=== PATIENT | female | born 1950 | race Caucasian/White ===

== ENCOUNTER 2018-02-16 14:19 | Inpatient (IN) ==
[~2018-02-16 14:19] MED LIST: Aminoglycoside Consult 1 EACH MC ONE
[2018-02-16] MEDS ORDERED: methylPREDNISolone 125 MG/2 ML VIAL IVP ONE (14:37)
[2018-02-16] MEDS ORDERED: Ipratropium/Albuterol Neb 3 ML IH ONE (14:37)
[2018-02-16] MEDS ORDERED: Isovue-370 500 ML INFUS..BTL IV ONE (14:39)
[2018-02-16] MEDS ORDERED: 0.9 % Sodium Chloride 500 ML IVC ONE (14:40)
--- NOTE | 2018-02-16 14:42 | Emergency Department Note ---
Disposition Clinical Impression: Hypoxia, Acute respiratory failure with hypoxia Community acquired pneumonia Qualifiers: Laterality: right Lung location: lower lobe of lung Qualified Code(s): J18.1 - Lobar pneumonia, unspecified organism Sepsis Qualifiers: Sepsis type: sepsis due to unspecified organism Qualified Code(s): A41.9 - Sepsis, unspecified organism Disposition: Admitted As Inpatient Condition: Good Referrals: Gregg Cook DO [Primary Care Provider] - Forms: ED Satisfaction Letter SOB HPI - General Chief Complaint: ED Shortness of Breath/Dyspnea Stated Complaint: 'sent from u/c for low o2" Time Seen by Provider: 02/16/18 14:32 Source: patient Mode of arrival: private vehicle Limitations: no limitations Nursing Notes Reviewed: Yes Vital Signs Reviewed: Yes - History of Present Illness 67-year-old female history of lung cancer, 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 Patient reports symptoms for the last 4-5 days with increasing shortness of breath. Reports a nonproductive cough. No fevers, chest pain, vomiting or diarrhea. She has felt nauseous during this time. Denies a prior history of requiring admission for her COPD. States she wants tried BiPAP once and was unable to tolerate due to the sensation of the smothering. Denies any prior history of coronary artery disease, DVT or pulmonary embolism. At the time of arrival patient noted to be hypoxic on 6 L nasal cannula. No other complaints. Pt Subjective Complaint: shortness of breath Onset (ago): day(s) Context: recent illness Consistency/Duration: constant Improves with: nothing Worsens with: nothing Known history of: COPD, other (Lung cancer) Associated symptoms: Reports: cough. Denies: chest pain, fever, sputum production Treatment prior to arrival: oxygen Cough present: No - Related Data Home oxygen amount: 4 liters Home Medications Medication Instructions Recorded Confirmed Atenolol [Tenormin] 50 mg PO BID 10/23/15 02/16/18 Glimepiride [Amaryl] 2 mg PO BID 10/23/15 02/16/18 Losartan Potassium [Cozaar] 50 mg PO BID 10/23/15 02/16/18 hydroCHLOROthiazide 25 mg PO DAILY 10/23/15 02/16/18 [Hydrochlorothiazide] Albuterol Sulfate [Proair 1 puff IH Q6H PRN 04/22/16 02/16/18 Respiclick] Budesonide/Formoterol 160/4.5 2 puff IH BIDR 04/22/16 02/16/18 [Symbicort 160/4.5] Theophylline Anhydrous [Mick-24] 100 mg PO DAILY 10/24/16 02/16/18 metFORMIN [Glucophage] 500 mg PO BID 10/24/16 02/16/18 Tiotropium [Spiriva] 18 mcg IH DAILY 02/16/18 02/16/18 Previous Rx's Medication Instructions Recorded Benzonatate [Tessalon] 200 mg PO TID PRN #30 capsule 02/16/18 cephALEXin [Keflex] 500 mg PO QID #40 capsule 02/16/18 predniSONE [PredniSONE] 60 mg PO DAILY 5 Days tablet 02/16/18 Allergies Allergy/AdvReac Type Severity Reaction Status Date / Time roflumilast [From [facility]] AdvReac Cramping Verified 02/16/18 12:54 of the Muscles All systems ED: reviewed and negative except as stated. Constitutional: Denies: fever, chills Cardiovascular: Denies: chest pain Respiratory: Reports: cough, dyspnea. Denies: hemoptysis, sputum production Gastrointestinal: Reports: nausea. Denies: abdominal pain, vomiting, diarrhea Past Medical History - Past Medical History Attestation: Yes The following information was validated with the patient. Source: patient Medical history: Reports: COPD, diabetes, hypertension, other PALEOLOGIST history: Reports: no PALEOLOGIST history - Social History Smoking Status: Unknown if ever smoked Smokeless Tobacco Status: No Alcohol use: Reports: none Drug use: Reports: none Physical Exam - General Limitations: no limitations General appearance: alert, in distress - Head Head exam: atraumatic, normocephalic - Eye Eye exam: Present: normal appearance - ENT ENT exam: normal exam - Neck Neck exam: Present: normal inspection - Chest Chest inspection: Present: normal inspection, symmetric chest wall rise - Respiratory Respiratory exam: Present: other (Diminished breath sounds bilaterally with end expiratory wheezing.) - Cardiovascular Cardiovascular exam: Present: normal rhythm, tachycardia, normal heart sounds - Abdominal Exam Abdominal exam: Present: soft, Non-Tender. Absent: tenderness - Extremities Exam Extremities exam: Present: normal inspection, full ROM - Expanded Upper Extremity Exam Shoulder exam: Present: normal inspection, full ROM Arm exam: Present: normal inspection, full ROM Elbow exam: Present: normal inspection, full ROM Forearm/Wrist exam: Present: normal inspection, full ROM Hand exam: Present: normal inspection, full ROM - Expanded Lower Extremity Exam Hip/Pelvis exam: Present: normal inspection, full ROM Upper leg exam: Present: normal inspection, full ROM Knee exam: Present: normal inspection, full ROM Lower leg exam: Present: normal inspection, full ROM Ankle exam: Present: normal inspection, full ROM Foot/toe exam: Present: normal inspection, full ROM - Skin Skin exam: Present: warm, dry Course Course Narrative: Patient seen and examined at time of arrival. 88% on 6 L nasal cannula. Placed on oxymask with improvement to 96%. Plan is EKG, chest x-ray as well as labs including troponin. We will give her 3 DuoNeb treatments here, Solu- Medrol as well as check an ABG and CTA chest given her prior malignant history to evaluate for pulmonary embolism. She will require admission for at least COPD exacerbation as well as hypoxia. - Reevaluation(s) Reevaluation #1: Patient was slightly more somnolent. On reassessment she opens her eyes to voice and answers questions appropriately. I discussed with her about possible noninvasive options including BiPAP. Although she was first hesitant she agrees with trying a dose of Ativan and wearing BiPAP. Her CT demonstrates findings suggestive of pneumonia as well as concern for malignancy. No evidence of pulmonary embolism. Given her tachycardia and elevated respiratory rate she meets SIRS criteria is we will continue IV fluid resuscitation, obtain lactate and blood cultures and treat for community-acquired pneumonia. Reevaluation #2: Patient remains comfortable on BiPAP. Settings 09/10 on 50% FiO2. Vital Signs Temperature 98.2 F 02/16/18 14:22 Pulse Rate 132 02/16/18 14:22 Respiratory Rate 26 02/16/18 14:22 Blood Pressure 138/78 02/16/18 14:22 O2 Sat by Pulse Oximetry 90 02/16/18 14:22 Temperature 98.2 F 02/16/18 14:22 Pulse Rate 113 02/16/18 18:11 Respiratory Rate 23 02/16/18 18:11 Blood Pressure 129/71 02/16/18 18:11 O2 Sat by Pulse Oximetry 98 02/16/18 18:11 Oxygen Delivery Oxygen Delivery Simple Mask Shortness of Breath/Dyspnea - MDM Narrative Medical decision making narrative: 67-year-old female with shortness of breath for 5 days. Underlying history of oxygen-dependent COPD. Hypoxic on 6 L nasal cannula here. Improved with oxygen mask that was eventually transitioned to BiPAP. CTA negative for pulmonary embolism however concern for pneumonia as well as malignancy. She is septic secondary to her pneumonia with tachycardia and tachypnea. Hemodynamically stable with the exception of tachycardia. Patient received IV fluids 1.5 L with a normal lactate. Cultures obtained. Rocephin and Zithromax for community-acquired pneumonia. Admitted to the hospitalist service for acute respiratory failure, community acquired pneumonia, sepsis. - Lab Data Lab results reviewed: Yes I reviewed the patient's lab results. Result diagrams: 02/16/18 14:53 02/16/18 14:53 Lab Results 02/16/18 02/16/18 02/16/18 Range/Units 14:53 14:53 14:53 WBC 11.5 H (4.3-11.1) K/mcL RBC 3.64 L (3.82-4.97) M/mcL Hgb 10.6 L (11.5-15.4) g/dL Hct 34.0 L (35.3-44.9) % MCV 93.4 (83.0-100.0) fL MCH 29.1 (28.0-33.3) pg MCHC 31.2 L (31.6-35.5) g/dL RDW 13.8 (11.5-14.5) % Plt Count 226 (140-400) K/mcL MPV 10.1 (9.4-12.4) fL Immature Gran % 0.7 (0-4) % Seg Neutrophils % 83.3 % Lymphocytes % 6.2 % Monocytes % 9.2 % Eosinophils % 0.3 % Basophils % 0.3 % Neutrophils # 9.6 H (1.6-8.9) K/mcL Lymphocytes # 0.7 (0.6-4.6) K/mcL Monocytes # 1.1 (0.0-1.3) K/mcL Eosinophils # 0.0 (0.0-0.6) K/mcL Basophils # 0.0 (0.0-0.2) K/mcL Mixed VBG pH (7.34-7.36) pH Units Mixed VBG pCO2 (44-46) mmHg Mixed VBG pO2 (35-45) mmHg Sodium 133 L (136-145) mEq/L Potassium 4.0 (3.5-5.1) mEq/L Chloride 90 L (98-107) mEq/L Carbon Dioxide 30 H (23-29) mEq/L BUN 27 H (8-23) mg/dL Creatinine 0.98 (0.60-1.20) mg/dL Est GFR ( Amer) > 60 (> 60) Est GFR (Non-Af Amer) 57 L (> 60) BUN/Creatinine Ratio 28 H (6-26) Glucose 327 H (70-105) mg/dL Calculated Osmolality 294 (280-300) Lactic Acid (0.5-2.2) mmol/L Calcium 9.5 (8.6-10.3) mg/dL Troponin I < 0.03 (< 0.04) ng/mL B-Natriuretic Peptide 75 (Less than 100) pg/mL 02/16/18 02/16/18 Range/Units 15:42 16:45 WBC (4.3-11.1) K/mcL RBC (3.82-4.97) M/mcL Hgb (11.5-15.4) g/dL Hct (35.3-44.9) % MCV (83.0-100.0) fL MCH (28.0-33.3) pg MCHC (31.6-35.5) g/dL RDW (11.5-14.5) % Plt Count (140-400) K/mcL MPV (9.4-12.4) fL Immature Gran % (0-4) % Seg Neutrophils % % Lymphocytes % % Monocytes % % Eosinophils % % Basophils % % Neutrophils # (1.6-8.9) K/mcL Lymphocytes # (0.6-4.6) K/mcL Monocytes # (0.0-1.3) K/mcL Eosinophils # (0.0-0.6) K/mcL Basophils # (0.0-0.2) K/mcL Mixed VBG pH 7.37 H (7.34-7.36) pH Units Mixed VBG pCO2 56 H (44-46) mmHg Mixed VBG pO2 47 H (35-45) mmHg Sodium (136-145) mEq/L Potassium (3.5-5.1) mEq/L Chloride (98-107) mEq/L Carbon Dioxide (23-29) mEq/L BUN (8-23) mg/dL Creatinine (0.60-1.20) mg/dL Est GFR ( Amer) (> 60) Est GFR (Non-Af Amer) (> 60) BUN/Creatinine Ratio (6-26) Glucose (70-105) mg/dL Calculated Osmolality (280-300) Lactic Acid 1.4 (0.5-2.2) mmol/L Calcium (8.6-10.3) mg/dL Troponin I (< 0.04) ng/mL B-Natriuretic Peptide (Less than 100) pg/mL - Radiology Data Radiology results reviewed: Yes I reviewed the patient's radiology results. Chest X-Ray 02/16/18 14:37 IMPRESSION: Patchy airspace disease in the lower lobes bilaterally possibly representing pneumonia D/ / Reed Gonsales MD / Reed Gonsales MD Interpreting Provider: Reed Gonsales MD Chest CTA 02/16/18 14:39 IMPRESSION: Evidence of new peripheral consolidation within the right lower lobe, compatible with pneumonia. There is likely a component of bronchitis, with thickening of the bronchial frye. Otherwise stable chest CT with re- demonstration of right apical, left upper lobe, and right middle lobe spiculated masslike opacities, which represents some combination of scarring and/or neoplasm. There has been interval enlargement of mediastinal lymph nodes which is probably reactive. Attention to this on follow-up examinations is necessary. D/ / Moo Mcqueen MD / Moo Mcqueen MD Interpreting Provider: Moo Mcqueen MD - EKG Data EKG attestation: Yes I reviewed and interpreted this EKG. EKG results narrative: EKG demonstrates sinus tachycardia with rate 122. Normal axis. Normal intervals. Normal R-wave progression. No gross ST elevations or depressions. No acute ischemic findings. Ana - Ana Situation: Demographics, MOA Background: Presenting Complaint, Relevant PMH, Meds, & Allergies Assessment: Vital Signs, Course and respsone to treatment, Exam Concerns, Patient/Family Expectation, Pertinant Lab Results Recommendation: Barrier(s) to disposition, Recommendation based on pending studies, treatments, or consults Ana Report Given to: Greg Perez Repor Time: 18:58
--- NOTE | 2018-02-16 15:10 | Emergency Department Note ---
Disposition Clinical Impression: Hypoxia Disposition: Admitted As Inpatient Forms: ED Satisfaction Letter General Adult HPI - General Chief complaint: ED Shortness of Breath/Dyspnea Stated complaint: 'sent from u/c for low o2" Time Seen by Provider: 02/16/18 14:32 Source: patient Mode of arrival: private vehicle Limitations: no limitations - History of Present Illness Pain Scale: 0 - Related Data Home Medications Medication Instructions Recorded Confirmed Atenolol [Tenormin] 50 mg PO BID 10/23/15 02/16/18 Glimepiride [Amaryl] 2 mg PO BID 10/23/15 02/16/18 Losartan Potassium [Cozaar] 50 mg PO BID 10/23/15 02/16/18 hydroCHLOROthiazide 25 mg PO DAILY 10/23/15 02/16/18 [Hydrochlorothiazide] Albuterol Sulfate [Proair 1 puff IH Q6H PRN 04/22/16 02/16/18 Respiclick] Budesonide/Formoterol 160/4.5 2 puff IH BIDR 04/22/16 02/16/18 [Symbicort 160/4.5] Theophylline Anhydrous [Mcik-24] 100 mg PO DAILY 10/24/16 02/16/18 metFORMIN [Glucophage] 500 mg PO BID 10/24/16 02/16/18 Tiotropium [Spiriva] 18 mcg IH DAILY 02/16/18 02/16/18 Previous Rx's Medication Instructions Recorded Benzonatate [Tessalon] 200 mg PO TID PRN #30 capsule 02/16/18 cephALEXin [Keflex] 500 mg PO QID #40 capsule 02/16/18 predniSONE [PredniSONE] 60 mg PO DAILY 5 Days tablet 02/16/18 Allergies Allergy/AdvReac Type Severity Reaction Status Date / Time roflumilast [From [facility]] AdvReac Cramping Verified 02/16/18 12:54 of the Muscles Constitutional: Denies: fever, chills Cardiovascular: Denies: chest pain Respiratory: Reports: cough, dyspnea. Denies: hemoptysis, sputum production Gastrointestinal: Reports: nausea. Denies: abdominal pain, vomiting, diarrhea Past Medical History - Past Medical History Medical history: Reports: COPD, diabetes, hypertension, other MENDING CARRIER history: Reports: no MENDING CARRIER history - Social History Smoking Status: Unknown if ever smoked Smokeless Tobacco Status: No Alcohol use: Reports: none Drug use: Reports: none Physical Exam - General Limitations: no limitations General appearance: alert, in distress Course Vital Signs Temperature 98.2 F 02/16/18 14:22 Pulse Rate 132 02/16/18 14:22 Respiratory Rate 26 02/16/18 14:22 Blood Pressure 138/78 02/16/18 14:22 O2 Sat by Pulse Oximetry 90 02/16/18 14:22 Temperature 98.2 F 02/16/18 14:22 Pulse Rate 123 02/16/18 14:49 Respiratory Rate 30 02/16/18 14:49 Blood Pressure 124/89 02/16/18 14:49 O2 Sat by Pulse Oximetry 99 02/16/18 14:50 Oxygen Delivery Oxygen Delivery Simple Mask Attestation Statement - Attestation Attestation: I examined this patient and my medical decision-making was reviewed with the Resident Physician. I agree with the documented findings, disposition and treatment plan as described except to the extent set forth below. 67 year old mauricio presntes to the eD wtih hypoxia at 88% on 6LNC and has a history ofl emerson cancer, and she is also tachycardiac at this time. WE will strat respraitory resusitation and she states that she cannot tolerate the bipap , crrently on high flow oxygen and at 96%. [place] will have a cardiopulonary workup with CTA chest to rule out PE and will be admitted to [facility].
[2018-02-16 15:30] LABS: Basophils % 0.3 %; Eosinophils % 0.3 %; Hemoglobin 10.6 g/dL (11.5-15.4); Immature Granulocytes % 0.7 % (0-4); Lymphocytes # 0.7 K/mcL (0.6-4.6); Lymphocytes % 6.2 %; Mean Corpuscular HGB Conc 31.2 g/dL (31.6-35.5); Mean Corpuscular Hemoglobin 29.1 pg (28.0-33.3); Mean Corpuscular Volume 93.4 fL (83.0-100.0); Mean Platelet Volume 10.1 fL (9.4-12.4); Monocytes # 1.1 K/mcL (0.0-1.3); Monocytes % 9.2 %; Neutrophils # 9.6 K/mcL (1.6-8.9); Platelet Count 226 K/mcL (140-400); Red Blood Count 3.64 M/mcL (3.82-4.97); Red Cell Distribution Width 13.8 % (11.5-14.5); Segmented Neutrophils % 83.3 %
[2018-02-16 15:31] LABS: Troponin I < 0.03 ng/mL (< 0.04)
[2018-02-16 15:42] LABS: BUN/Creatinine Ratio 28 (6-26); Blood Urea Nitrogen 27 mg/dL (8-23); Calcium 9.5 mg/dL (8.6-10.3); Carbon Dioxide 30 mEq/L (23-29); Chloride 90 mEq/L (98-107); Glucose 327 mg/dL (70-105); Osmolality,Calculated 294 (280-300); Sodium 133 mEq/L (136-145); eGFR For African Americans > 60 (> 60); eGFR For Non-African Americans 57 (> 60)
[2018-02-16 15:50] LABS: Mixed Venous Blood pCO2 56 mmHg (44-46); Mixed Venous Blood pH 7.37 pH Units (7.34-7.36); Mixed Venous Blood pO2 47 mmHg (35-45)
[2018-02-16] MEDS ORDERED: *HR* LORazepam 2 MG/ML VIAL IVP ONE ×2 (16:23→19:41)
[2018-02-16] MEDS ORDERED: Azithromycin 500 MG in D5% in Water 250 ML IVPB ONE (16:32)
[2018-02-16] MEDS ORDERED: cefTRIAXone 1,000 MG in Water for inj. (sterile) 20 ML 10 ML IVP ONE (16:32)
[2018-02-16] MEDS ORDERED: 0.9 % Sodium Chloride 1,000 ML IVC ONE (16:33)
[2018-02-16 22:10] LABS: ABG Base Excess 5 mEq/L (-2 to 3); ABG HCO3 34 mEq/L (21-27); ABG Oxygen Saturation 97 % (95-98); ABG PCO2 76 mmHg (35-45); ABG PH 7.26 pH Units (7.32-7.45); ABG PO2 103 mmHg (85-104); ABG TCO2 36 mEq/L (20-26); Blood Gas Modality NIV
[2018-02-16] MEDS ORDERED: *HR* Dextrose 50 % in Water (Syg) 50 ML SYRINGE IVP PRN (22:12)
[2018-02-16] MEDS ORDERED: Naloxone 0.4 MG/ML INJ IVP PRN (22:12)
[2018-02-16] MEDS ORDERED: Acetaminophen 325 MG TABLET PO PRN (22:12)
[2018-02-16] MEDS ORDERED: Dextrose Gel 15 GM/37.5 ML TUBE PO PRN ×2 (22:12)
[2018-02-16] MEDS ORDERED: D5% in Water 1,000 ML IVC PRN (22:12)
[2018-02-16] MEDS ORDERED: Albuterol 2.5 MG/3 ML NEBULIZER IH PRN (22:22)
--- NOTE | 2018-02-16 22:34 | Internal Med History&Physical ---
Date of Encounter: 02/16/18 Time of Encounter: 21:40 Internal Medicine - H&P: HPI Chief complaint: SOB Admitted From: Emergency Dept Plans for Post Hospital Care: Home History of present illness: Ms. Farr is a 67 year old female who presents to the ER tonight with a three-day history of shortness of breath, coughing, and wheezing. In the ER, she was found to be in respiratory distress and was placed on BiPAP. However, she was given 2 doses of Ativan in the ER for anxiety and intolerance to BiPAP. She was admitted to hospitalist service for further workup and care. Workup in ER included imaging which showed a right lower lobe pneumonia on CT angiogram. Once stabilized and placed on BiPAP, she was moved to the floor for ongoing inpatient care. Upon my assessment of the patient, she is very somnolent and minimally arousable. She does respond to painful stimuli but not to verbal stimuli. She is tolerating BiPAP well and generating good tidal volumes. I suspect she is more somnolent from Ativan rather than her CO2 retention. However, given her history of COPD and lung cancer, I am ordering an arterial blood gas and we will monitor her closely. I discussed with patient's and daughter CODE STATUS. Patient is full code. Therefore, if she would need to intubate for worsening respiratory failure, we will proceed. I am hopeful, however, that we can improve her with BiPAP. According to her daughter and , she has been fighting a chest cold for the last 3 days and has been become progressively short of breath. She has been somewhat somnolent at home as well. At home, she was on 5 L O2 by nasal cannula chronically and then, today, she became more short of breath. They therefore brought her to the ER. She was noted to have O2 sats in the 60s according to the daughter. I do not see any documentation of that, however. Nonetheless, she is suffering from respiratory failure and is in need of ongoing support and oxygenation. Per daughter and , she has had subjective fevers but no documented fevers. She has had poor intake including fluids. She has had decreased urine output and increasing somnolence. She has had no vomiting or diarrhea. She has had no known ill contacts. Past Med Surg Social Fam HX - Past Medical History Attestation: Yes The following information was validated with the patient. Source: old records reviewed, obtained from family Medical history: cancer (lung cancer), COPD, diabetes, hypertension, other Psychiatric history: no psych history - Past Surgical History Surgical History: cholecystectomy - Social History Smoking Status: Former smoker Smokeless Tobacco Status: No Alcohol use: none Drug use: none Current living situation: Home, With Family Activity Level: Independent ambulation Recent Out of Country Travel Within the Last 8 Weeks: No - Family History Father Living Status: Cause of : stroke Mother Living Status: Cause of : kidney failure Internal Medicine - H&P: Meds Atenolol [Tenormin] 50 mg PO BID 10/23/15 [History] Glimepiride [Amaryl] 2 mg PO BID 10/23/15 [History] Losartan Potassium [Cozaar] 50 mg PO BID 10/23/15 [History] hydroCHLOROthiazide [Hydrochlorothiazide] 25 mg PO DAILY 10/23/15 [History] Albuterol Sulfate [Proair Respiclick] 1 puff IH Q6H PRN 04/22/16 [History] Budesonide/Formoterol 160/4.5 [Symbicort 160/4.5] 2 puff IH BIDR 04/22/16 [ History] Theophylline Anhydrous [Mick-24] 100 mg PO DAILY 10/24/16 [History] metFORMIN [Glucophage] 500 mg PO BID 10/24/16 [History] Benzonatate [Tessalon] 200 mg PO TID PRN #30 capsule 02/16/18 [Rx] Tiotropium [Spiriva] 18 mcg IH DAILY 02/16/18 [History] cephALEXin [Keflex] 500 mg PO QID #40 capsule 02/16/18 [Rx] predniSONE [PredniSONE] 60 mg PO DAILY 5 Days tablet 02/16/18 [Rx] 3 Allergy/AdvReac Type Severity Reaction Status Date / Time roflumilast [From [facility]] AdvReac Cramping Verified 02/16/18 12:54 of the Muscles ROS unobtainable: due to mental status Review of systems: per family; unobtainable from patient - Constitutional Constitutional: fatigue, fever(s), weakness, no chills - EENT Ears: no ear pain, no tinnitus Nose, mouth and throat: nasal congestion, no sinus pressure, no sore throat - Cardiovascular Cardiovascular ROS IM: dyspnea, dyspnea on exertion, lightheadedness, no chest pain, no orthopnea, no paroxysmal nocturnal dyspnea, no syncope - Respiratory Respiratory: cough, dyspnea, dyspnea on exertion, wheezing, chest congestion, pain with cough, no hemoptysis - Gastrointestinal Gastrointestinal: no abdominal pain, no diarrhea, no hematemesis, no hematochezia, no melena, no nausea, no vomiting - Genitourinary Genitourinary: no dysuria, no flank pain, no hematuria - Musculoskeletal Musculoskeletal ROS IM: no muscle cramps, no myalgias - Integumentary Integumentary IM: no rash, no jaundice - Neurological Neurological ROS: weakness, no headache(s) - Psychiatric Psychiatric: no anxiety, no depression Additional comments: +somnolence - Allergic/Immunologic Allergic/Immunologic: no GI upset with certain foods - Constitutional Vitals: Temp Pulse Resp BP Pulse Ox 98.3 F 106 17 131/58 95 02/16/18 21:09 02/16/18 21:09 02/16/18 21:09 02/16/18 21:09 02/16/18 21:09 Exam: somnolent; arousable only to painful stimuli; protecting airway on BiPap - Head Head exam: Present: normal inspection - Eye Eye exam: Present: PERRL. Absent: scleral icterus - ENT ENT exam: Present: mucous membranes dry, normal external ear exam - Neck Neck exam general surgery: Present: full ROM, supple. Absent: tenderness, nuchal rigidity, thyromegaly - Respiratory Respiratory exam: Present: decreased breath sounds, prolonged expiratory phase, rhonchi, wheezes. Absent: chest wall tenderness - Cardiovascular Cardiovascular exam: Present: distant heart sounds, RRR, +S1, +S2. Absent: diastolic murmur, systolic murmur - GI/Abdominal GI/Abdominal exam: Present: soft. Absent: guarding, hepatomegaly, mass, rebound , splenomegaly, tenderness - Extremities Exam Extremities exam: Present: full ROM, normal capillary refill, warm, radial pulses palpable and symmetrical. Absent: calf tenderness, pedal edema, tenderness - Back Exam Back exam: Absent: CVA tenderness (L), CVA tenderness (R) - Neurological Exam Additional comments: depressed mental status; responds appropriately to painful stimuli - Skin Skin exam: Present: dry, warm. Absent: rash Internal Med - H&P Results - Labs CBC & Chem 7: 02/16/18 14:53 02/16/18 14:53 - ABG Interpretation Interpretation: ABG interpreted by me ABG results: 02/16/18 22:05 ABG pH 7.26 L ABG pCO2 76 H* ABG pO2 103 ABG HCO3 34 H ABG Total CO2 36 H ABG O2 Saturation 97 ABG Base Excess 5 H Interpretation: respiratory acidosis - Diagnostic Studies Chest x-ray Status: image reviewed by me (RLL infiltrate; possibly left as well) - Assessment and plan (1) Acute respiratory failure with hypoxia Current Visit: Yes Status: Acute Assessment and plan: 1. Continue BiPAP, IV steroids, scheduled and when necessary aerosols, and oxygen. 2. Arterial blood gas performed now reveals respiratory acidosis. She is tolerating BiPAP well and I will repeat a blood gas in 2 hours and follow closely. 3. If respiratory status declines and/or patient becoming more somnolent, we will intervene with intubation if necessary. I discussed this at length with patient's daughter and and they are in full agreement with the plan. (2) Sepsis Current Visit: Yes Status: Acute Assessment and plan: 1. Will continue IVF, antibiotics, and trend Lactate. 2. BP stable presently. 3. Pneumonia is likely source. Qualifiers: Sepsis type: sepsis due to unspecified organism Qualified Code(s): A41.9 - Sepsis, unspecified organism (3) Lung cancer Current Visit: Yes Status: Chronic Assessment and plan: 1. Patient follows with oncology. 2. Per family, cancer is stable and HEM/ONC is monitoring her clinically. She is not undergoing chemotherapy presently. Qualifiers: Laterality: unspecified laterality Lung location: unspecified part of lung Qualified Code(s): C34.90 - Malignant neoplasm of unspecified part of unspecified bronchus or lung (4) Community acquired pneumonia Current Visit: Yes Status: Acute Assessment and plan: 1. Blood cultures drawn in ER. 2. Antibiotics and support as above. Qualifiers: Laterality: right Lung location: lower lobe of lung Qualified Code(s): J18.1 - Lobar pneumonia, unspecified organism (5) Type 2 diabetes mellitus Current Visit: Yes Status: Chronic Assessment and plan: 1. Hold oral meds. 2. Will place on SSI and monitor adjust dosing as necessary. 3. She may need basal insulin due to steroid use. Qualifiers: Diabetes mellitus ferry terminal agent insulin use: without ferry terminal agent use Diabetes mellitus complication status: without complication Qualified Code(s): E11.9 - Type 2 diabetes mellitus without complications (6) DVT prophylaxis Current Visit: Yes Status: Acute Assessment and plan: 1. Heparin SQ.
[2018-02-16 22:55] LABS: INR 1.2; Prothrombin Time 12.8 Seconds (9.4-12.1)
[2018-02-16 22:57] LABS: Activated Partial Thrombo Time 25.7 Seconds (26.0-36.0)
[2018-02-16] MEDS ORDERED: Vancomycin (wt based) 1,000 MG VIAL IVPB SCH (23:00)
[2018-02-16 23:13] LABS: Estimated Average Glucose 269 mg/dl
[2018-02-17] MEDS: Ipratropium/Albuterol Neb 3 ML IH SCH ×7 (00:31→23:31)
[2018-02-17] MEDS: 0.9 % Sodium Chloride w KCl 20 MEQ/1,000 ML MLS IVC SCH ×2 (00:38→09:00)
[2018-02-17] MEDS: Insulin LISPRO 300 UNITS/3 ML VIAL SQ SCH ×4 (00:38→21:11)
[2018-02-17] MEDS: *HR* Heparin 5,000 UNIT/ML VIAL SQ SCH ×2 (00:39→09:44)
[2018-02-17 00:47] LABS: ABG Base Excess 5 mEq/L (-2 to 3); ABG HCO3 34 mEq/L (21-27); ABG Oxygen Saturation 98 % (95-98); ABG PCO2 76 mmHg (35-45); ABG PH 7.26 pH Units (7.32-7.45); ABG PO2 130 mmHg (85-104); ABG TCO2 36 mEq/L (20-26); Blood Gas Modality NIV
[2018-02-17 05:00] LABS: ABG Base Excess 7 mEq/L (-2 to 3); ABG HCO3 34 mEq/L (21-27); ABG Oxygen Saturation 94 % (95-98); ABG PCO2 66 mmHg (35-45); ABG PH 7.32 pH Units (7.32-7.45); ABG PO2 78 mmHg (85-104); ABG TCO2 36 mEq/L (20-26); Blood Gas Modality NIV; Blood Gas PEEP 6 cm H2O; Blood Gas Respiration Rate 18; Blood Gas VT 500 cc
[2018-02-17 05:20] LABS: Basophils % 0.1 %; Hematocrit 28.2 % (35.3-44.9); Hemoglobin 8.8 g/dL (11.5-15.4); Immature Granulocytes % 1.2 % (0-4); Lymphocytes # 0.6 K/mcL (0.6-4.6); Lymphocytes % 8.7 %; Mean Corpuscular HGB Conc 31.2 g/dL (31.6-35.5); Mean Corpuscular Volume 93.1 fL (83.0-100.0); Mean Platelet Volume 9.9 fL (9.4-12.4); Monocytes # 0.3 K/mcL (0.0-1.3); Monocytes % 4.7 %; Neutrophils # 5.9 K/mcL (1.6-8.9); Platelet Count 201 K/mcL (140-400); Red Blood Count 3.03 M/mcL (3.82-4.97); Red Cell Distribution Width 13.8 % (11.5-14.5); Segmented Neutrophils % 85.3 %
[2018-02-17 05:42] LABS: Alanine Aminotransferase 22 Units/L (7-52); Albumin 3.3 g/dL (3.5-5.7); Albumin/Globulin Ratio 0.9 (1.1-2.2); Alkaline Phosphatase 82 Units/L (34-104); Aspartate Amino Transferase 13 Units/L (13-39); BUN/Creatinine Ratio 36 (6-26); Bilirubin,Total 0.3 mg/dL (0.3-1.0); Blood Urea Nitrogen 30 mg/dL (8-23); Calcium 8.5 mg/dL (8.6-10.3); Carbon Dioxide 30 mEq/L (23-29); Chloride 99 mEq/L (98-107); Globulin 3.5 g/dL (2.4-3.5); Glucose 293 mg/dL (70-105); Magnesium 1.9 mg/dL (1.6-2.6); Osmolality,Calculated 301 (280-300); Potassium 4.7 mEq/L (3.5-5.1); Sodium 137 mEq/L (136-145); Total Protein 6.8 g/dL (6.4-8.9); eGFR For African Americans > 60 (> 60); eGFR For Non-African Americans > 60 (> 60)
[2018-02-17] MEDS: methylPREDNISolone 125 MG/2 ML VIAL IVP SCH ×2 (06:09→17:21)
--- NOTE | 2018-02-17 07:06 | Electrocardiograph Report ---
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
[2018-02-17] MEDS: Budesonide/Formoterol 160/4.5 MDI IH SCH ×2 (07:53→20:11)
[2018-02-17] MEDS ORDERED: Levofloxacin 750 MG/150 ML 750 MG/150 ML BAG IVPB SCH (09:00)
--- NOTE | 2018-02-17 09:24 | Internal Med Progress Note ---
<Uriel Watts - Last Filed: 02/17/18 14:17> Date of Encounter: 02/17/18 Time of Encounter: 09:23 - Assessment and plan (1) Acute respiratory failure with hypoxia Current Visit: Yes Status: Acute Assessment and plan: 3 day history of worsening dyspnea, arrived to ED in acute respiratory failure and placed on Bipap ABG this morning improved from yesterday with pH 7.32, pCO2 66, pO2 78 Lactate 1.4, 1.1, 0.7 96% on bipap -Continue with bipap -Continue with steroids solumerol 60mg q12h -Continue with duonebs q4h -Continue with supplemental oxygen as needed. (2) Community acquired pneumonia Current Visit: Yes Status: Acute Assessment and plan: Right lower lobe pneumonia CXR revealed patchy airspace disease of lower lobes bilaterally CTA revealed evidence of consolidation within the right lower lobe. Also has stable chest CT with re-demonstration of right apical, left upper lob, and right middle lobe spiculated masslike opacities. Interval enlargement of mediastinal lymph nodes. -Continue with Levaquin d1. discontinue Vancomycin d1. Received one dose of Rocephin in the ED. Qualifiers: Laterality: right Lung location: lower lobe of lung Qualified Code(s): J18.1 - Lobar pneumonia, unspecified organism (3) Sepsis Current Visit: Yes Status: Resolved Assessment and plan: Resolved. Arrived with tachypnea and tachycardia and found to have RLL pneumonia. Initially started on broad spectrum including Vancomycin. Sepsis due to RLL pneumonia, classified as CAP, will discontinue vancomyin d1 and continue with levaquin. Bp stable Continue per plan in assessment above. Qualifiers: Sepsis type: sepsis due to unspecified organism Qualified Code(s): A41.9 - Sepsis, unspecified organism (4) Lung cancer Current Visit: Yes Status: Chronic Assessment and plan: Known history of lung cancer Re-demonstration on CTA. Followup with Oncology as scheduled as outpatient. Qualifiers: Laterality: unspecified laterality Lung location: unspecified part of lung Qualified Code(s): C34.90 - Malignant neoplasm of unspecified part of unspecified bronchus or lung (5) Type 2 diabetes mellitus Current Visit: Yes Status: Chronic Assessment and plan: Known history of type II diabetes. Continue with ADA diet and sliding scale insulin. Continue regular glucose monitoring. Qualifiers: Diabetes mellitus nursing home insulin use: without nursing home use Diabetes mellitus complication status: without complication Qualified Code(s): E11.9 - Type 2 diabetes mellitus without complications (6) DVT prophylaxis Current Visit: Yes Status: Acute Assessment and plan: Currently on subcutaneous heparin, will switch to daily lovenox as history of cancer. (7) Hypertension Current Visit: Yes Status: Acute Assessment and plan: Bp controlled, renal function good. Will resume home meds for chronic disease management. Qualifiers: Hypertension type: essential hypertension Qualified Code(s): I10 - Essential (primary) hypertension - Time Spent With Patient Total time spent is greater than 50% in coordination of care (as documented) at patient's floor/unit and/or counseling patient: - Subjective Interval history: Patient reports doing better and family members report patient is a lot more alert than arrival. Does report some shortness of breath still, but much improved. Patient reports some right mid back pain that is achy and worse with deep inspiration. Patient does have a right lower lobes pneumonia and exam of back and CVA on right are negative for tenderness to palpation. Denies fevers, chills, sweats, nausea, vomiting, chest pain, abdominal pain, changes in bowels or bladder, or weakness. - Constitutional Vitals: Temp Pulse Resp BP Pulse Ox 97.6 F 71 20 144/82 96 02/17/18 03:16 02/17/18 07:00 02/17/18 07:54 02/17/18 07:54 02/17/18 07:54 General appearance: Present: A&O X 3, no acute distress, obese, answers questions appropriately Exam: on Bipap - Head Head exam: Present: atraumatic, normal inspection, normocephalic - Eye Eye exam: Present: EOMI, normal appearance - ENT ENT exam: Present: mucous membranes moist, normal exam, normal oropharynx - Neck Neck exam general surgery: Present: full ROM, normal inspection, supple, trachea midline. Absent: lymphadenopathy - Respiratory Respiratory exam: Present: CTAB. Absent: rales, respiratory distress, rhonchi, wheezes - Cardiovascular Cardiovascular exam: Present: RRR, +S1, +S2 - GI/Abdominal GI/Abdominal exam: Present: normal bowel sounds, soft. Absent: tenderness - Extremities Exam Extremities exam: Present: full ROM, normal inspection, warm, radial pulses palpable and symmetrical. Absent: pedal edema, tenderness - Back Exam Additional comments: mid and lower back inspected and normal, no spinal tenderness, no CVA tenderness , no rashes, no tenderess with palpation. - Neurological Exam Neurological exam: Present: alert, oriented X3, strengths equal and symetr throughout - Skin Skin exam: Present: dry, intact, normal color, warm Internal Medicine: Result - Labs CBC & Chem 7: 02/17/18 05:02 02/17/18 05:02 Labs: Short CBC 02/17/18 Range/Units 05:02 WBC 6.9 (4.3-11.1) K/mcL Hgb 8.8 L D (11.5-15.4) g/dL Hct 28.2 L (35.3-44.9) % Plt Count 201 (140-400) K/mcL Neutrophils # 5.9 (1.6-8.9) K/mcL BMP 02/17/18 05:02 Sodium 137 Potassium 4.7 Chloride 99 Carbon Dioxide 30 H BUN 30 H Creatinine 0.83 Glucose 293 H Calcium 8.5 L Cardiac Enzymes 02/16/18 02/17/18 Range/Units 22:36 05:02 Troponin I < 0.03 < 0.03 (< 0.04) ng/mL Liver Function 02/17/18 Range/Units 05:02 Total Bilirubin 0.3 (0.3-1.0) mg/dL AST 13 (13-39) Units/L ALT 22 (7-52) Units/L Alkaline Phosphatase 82 (34-104) Units/L Albumin 3.3 L (3.5-5.7) g/dL - ABG Interpretation ABG results: ABG ABG pH 7.32 pH Units (7.32-7.45) 02/17/18 04:56 ABG pCO2 66 mmHg (35-45) H 02/17/18 04:56 ABG pO2 78 mmHg (85-104) L D 02/17/18 04:56 ABG O2 Saturation 94 % (95-98) L 02/17/18 04:56 PT/INR, D-dimer PT 12.8 Seconds (9.4-12.1) H 02/16/18 22:36 Consult Discharge Plan - Plan Referrals: Hosea Martin [Partnered Physician] - 02/25/18 10:00 am <Gregg Bernard - Last Filed: 02/17/18 18:46> Date of Encounter: 02/17/18 - Assessment and plan (1) Acute on chronic respiratory failure with hypoxia and hypercapnia Current Visit: Yes Status: Acute (2) Acute respiratory failure with hypoxia Current Visit: Yes Status: Acute (3) Community acquired pneumonia Current Visit: Yes Status: Acute Qualifiers: Laterality: right Lung location: lower lobe of lung Qualified Code(s): J18.1 - Lobar pneumonia, unspecified organism (4) Sepsis Current Visit: Yes Status: Resolved Qualifiers: Sepsis type: sepsis due to unspecified organism Qualified Code(s): A41.9 - Sepsis, unspecified organism (5) Lung cancer Current Visit: Yes Status: Chronic Qualifiers: Laterality: unspecified laterality Lung location: unspecified part of lung Qualified Code(s): C34.90 - Malignant neoplasm of unspecified part of unspecified bronchus or lung (6) Type 2 diabetes mellitus Current Visit: Yes Status: Chronic Qualifiers: 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 use: without nursing home use Diabetes mellitus complication status: without complication Qualified Code(s): E11.9 - Type 2 diabetes mellitus without complications (7) Hypertension Current Visit: Yes Status: Acute Qualifiers: Hypertension type: essential hypertension Qualified Code(s): I10 - Essential (primary) hypertension (8) DVT prophylaxis Current Visit: Yes Status: Acute - Time Spent With Patient Total time spent is greater than 50% in coordination of care (as documented) at patient's floor/unit and/or counseling patient: - Constitutional Vitals: Temp Pulse Resp BP Pulse Ox 97.7 F 111 17 136/74 97 02/17/18 17:22 02/17/18 17:22 02/17/18 17:22 02/17/18 17:22 02/17/18 17:22 Internal Medicine: Result - Labs CBC & Chem 7: 02/17/18 05:02 02/17/18 05:02 Labs: Short CBC 02/17/18 Range/Units 05:02 WBC 6.9 (4.3-11.1) K/mcL Hgb 8.8 L D (11.5-15.4) g/dL Hct 28.2 L (35.3-44.9) % Plt Count 201 (140-400) K/mcL Neutrophils # 5.9 (1.6-8.9) K/mcL BMP 02/17/18 05:02 Sodium 137 Potassium 4.7 Chloride 99 Carbon Dioxide 30 H BUN 30 H Creatinine 0.83 Glucose 293 H Calcium 8.5 L Cardiac Enzymes 02/16/18 02/17/18 02/17/18 Range/Units 22:36 05:02 10:39 Troponin I < 0.03 < 0.03 < 0.03 (< 0.04) ng/mL Liver Function 02/17/18 Range/Units 05:02 Total Bilirubin 0.3 (0.3-1.0) mg/dL AST 13 (13-39) Units/L ALT 22 (7-52) Units/L Alkaline Phosphatase 82 (34-104) Units/L Albumin 3.3 L (3.5-5.7) g/dL - ABG Interpretation ABG results: ABG ABG pH 7.32 pH Units (7.32-7.45) 02/17/18 04:56 ABG pCO2 66 mmHg (35-45) H 02/17/18 04:56 ABG pO2 78 mmHg (85-104) L D 02/17/18 04:56 ABG O2 Saturation 94 % (95-98) L 02/17/18 04:56 PT/INR, D-dimer PT 12.8 Seconds (9.4-12.1) H 02/16/18 22:36 - Attending Attestation I examined this patient and my medical decision-making was reviewed with the Resident Physician on 02/17/18. I agree with the documented findings, disposition and treatment plan as described except to the extent set forth below. Ms Farr is currently admitted for acute resp failure. She remains moderate to high risk due to potential for worsening clinical status. Ms Farr is doing a little better but is very dyspneic with movement. No pain. No fever or chills. Has been on and off bipap today. Exam Alert. Moderate resp distress at rest Mucus membranes dry Heart tachy Lungs with wheeze and rales bilaterally Abd soft I/P 1. Resp failure 2. COPD Further diagnoses and plan as above.
[2018-02-17] MEDS: *HR* LORazepam 0.5 MG TABLET PO PRN (21:22)
[2018-02-18] MEDS: Ipratropium/Albuterol Neb 3 ML IH SCH ×6 (04:02→23:07)
[2018-02-18] MEDS: methylPREDNISolone 125 MG/2 ML VIAL IVP SCH (05:35)
[2018-02-18] MEDS: *HR* Enoxaparin 40 MG/0.4 ML SYRINGE SQ SCH (05:35)
[2018-02-18] MEDS: Insulin LISPRO 300 UNITS/3 ML VIAL SQ SCH ×4 (08:01→21:21)
[2018-02-18] MEDS: hydroCHLOROthiazide 25 MG TABLET PO SCH (08:02)
[2018-02-18] MEDS: Levofloxacin 750 MG/150 ML 750 MG/150 ML BAG IVPB SCH (08:02)
[2018-02-18] MEDS: Budesonide/Formoterol 160/4.5 MDI IH SCH ×2 (08:05→19:47)
[2018-02-18 09:12] LABS: Hematocrit 29.9 % (35.3-44.9); Mean Corpuscular HGB Conc 30.1 g/dL (31.6-35.5); Mean Corpuscular Hemoglobin 28.5 pg (28.0-33.3); Mean Corpuscular Volume 94.6 fL (83.0-100.0); Mean Platelet Volume 10.1 fL (9.4-12.4); Monocytes # 0.2 K/mcL (0.0-1.3); Nucleated Red Blood Cells 0.2 /100 WBC (0); Platelet Count 273 K/mcL (140-400); Red Blood Count 3.16 M/mcL (3.82-4.97); Red Cell Distribution Width 13.9 % (11.5-14.5)
[2018-02-18 09:45] LABS: Lymphocytes # 0.4 K/mcL (0.6-4.6); Neutrophils # 8.5 K/mcL (1.6-8.9); Platelet Estimate Normal (Normal); Polychromasia 1+ (Not Present)
--- NOTE | 2018-02-18 10:47 | Internal Med Progress Note ---
<Rishabh Stallings - Last Filed: 02/18/18 13:40> Date of Encounter: 02/18/18 Time of Encounter: 08:35 - Assessment and plan (1) Acute respiratory failure with hypoxia Current Visit: Yes Status: Acute Assessment and plan: Secondary to pneumonia with history of lung cancer 3 day history of worsening dyspnea, arrived to ED in acute respiratory failure and placed on Bipap ABG improved yesterday with pH 7.32, pCO2 66, pO2 78 Lactate 1.4, 1.1, 0.7 Patient maintaining adequate oxygen saturation Continue Bipap as needed Will decrease solumerol to 40mg q12h Continue with duonebs q4h Continue with supplemental oxygen (2) Community acquired pneumonia Current Visit: Yes Status: Acute Assessment and plan: Right lower lobe pneumonia CXR revealed patchy airspace disease of lower lobes bilaterally CTA revealed evidence of consolidation within the right lower lobe. Previous spiculated masses in right apical, left upper, and right middle remained stable. Interval enlargement of mediastinal lymph nodes that are likely reactive Continue with Levaquin started 02/16/18 Day 2 Discontinue Vancomycin Received one dose of Rocephin in the ED Support breathing as above Qualifiers: Laterality: right Lung location: lower lobe of lung Qualified Code(s): J18.1 - Lobar pneumonia, unspecified organism (3) Sepsis Current Visit: Yes Status: Resolved Assessment and plan: Resolved. Arrived with tachypnea and tachycardia and found to have RLL pneumonia. Initially started on broad spectrum including Vancomycin. Sepsis due to RLL pneumonia, classified as CAP, will discontinue vancomyin and continue with levaquin. Bp stable Continue per plan in assessment above Qualifiers: Sepsis type: sepsis due to unspecified organism Qualified Code(s): A41.9 - Sepsis, unspecified organism (4) Lung cancer Current Visit: Yes Status: Chronic Assessment and plan: Known history of lung cancer Re-demonstration on CTA, remain stable Followup with Oncology as scheduled as outpatient. 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 Will resume home meds for chronic disease management. Qualifiers: Hypertension type: essential hypertension Qualified Code(s): I10 - Essential (primary) hypertension (7) DVT prophylaxis Current Visit: Yes Status: Acute Assessment and plan: Currently on subcutaneous heparin, will switch to daily lovenox as history of cancer. (8) Acute on chronic respiratory failure with hypoxia and hypercapnia Current Visit: Yes Status: Acute Assessment and plan: plan as above - Time Spent With Patient Total time spent is greater than 50% in coordination of care (as documented) at patient's floor/unit and/or counseling patient: - Subjective Interval history: Patient is resting comfortably. She states that her breathing is improved when she is lying still, but is still having significant dyspnea when she is up and moving at all. She reports only needing the Bipap at night, not all of the time anymore. She has not been coughing at all. She denies having any fever/chills, chest pain, or nausea/vomiting. - Constitutional Vitals: Temp Pulse Resp BP Pulse Ox 98.1 F 70 18 126/66 100 02/17/18 19:36 02/18/18 05:45 02/18/18 08:05 02/18/18 05:45 02/18/18 08:05 General appearance: Present: A&O X 3, no acute distress, obese, answers questions appropriately Exam: Head exam: atraumatic, normal inspection, normocephalic Eye exam: normal appearance, no scleral icterus, no conjunctival injection ENT exam: mucous membranes moist Neck exam general surgery: full ROM, normal inspection, supple, trachea midline Respiratory exam: CTAB, no rales, respiratory distress, rhonchi, wheezes Cardiovascular exam: RRR, +S1, +S2, no murmurs/rubs/gallops GI/Abdominal exam: normal bowel sounds, soft, non tenderness Extremities exam: full ROM, normal inspection, warm, radial pulses palpable and symmetrical, no pedal edema Neurological exam: alert, oriented X3, strengths equal and symetr throughout Skin exam: dry, intact, normal color, warm Internal Medicine: Result - Labs CBC & Chem 7: 02/18/18 08:38 02/17/18 05:02 Labs: Short CBC 02/18/18 Range/Units 08:38 WBC 9.0 (4.3-11.1) K/mcL Hgb 9.0 L (11.5-15.4) g/dL Hct 29.9 L (35.3-44.9) % Plt Count 273 (140-400) K/mcL Neutrophils # 8.5 (1.6-8.9) K/mcL Cardiac Enzymes 02/17/18 Range/Units 10:39 Troponin I < 0.03 (< 0.04) ng/mL - ABG Interpretation ABG results: ABG ABG pH 7.32 pH Units (7.32-7.45) 02/17/18 04:56 ABG pCO2 66 mmHg (35-45) H 02/17/18 04:56 ABG pO2 78 mmHg (85-104) L D 02/17/18 04:56 ABG O2 Saturation 94 % (95-98) L 02/17/18 04:56 PT/INR, D-dimer PT 12.8 Seconds (9.4-12.1) H 02/16/18 22:36 Consult Discharge Plan - Plan Referrals: Hosea Martin [Partnered Physician] - 02/25/18 10:00 am <Gregg Bernard - Last Filed: 02/18/18 18:05> Date of Encounter: 02/18/18 - Assessment and plan (1) Acute on chronic respiratory failure with hypoxia and hypercapnia Current Visit: Yes Status: Acute (2) Acute respiratory failure with hypoxia Current Visit: Yes Status: Acute (3) Community acquired pneumonia Current Visit: Yes Status: Acute Qualifiers: Laterality: right Lung location: lower lobe of lung Qualified Code(s): J18.1 - Lobar pneumonia, unspecified organism (4) Sepsis Current Visit: Yes Status: Resolved Qualifiers: Sepsis type: sepsis due to unspecified organism Qualified Code(s): A41.9 - Sepsis, unspecified organism (5) DVT prophylaxis Current Visit: Yes Status: Acute (6) Lung cancer Current Visit: Yes Status: Chronic Qualifiers: Laterality: unspecified laterality Lung location: unspecified part of lung Qualified Code(s): C34.90 - Malignant neoplasm of unspecified part of unspecified bronchus or lung (7) Type 2 diabetes mellitus Current Visit: Yes Status: Chronic Qualifiers: Diabetes mellitus alf insulin use: without 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 Diabetes mellitus complication status: without complication Qualified Code(s): E11.9 - Type 2 diabetes mellitus without complications (8) Hypertension Current Visit: Yes Status: Acute Qualifiers: Hypertension type: essential hypertension Qualified Code(s): I10 - Essential (primary) hypertension - Time Spent With Patient Total time spent is greater than 50% in coordination of care (as documented) at patient's floor/unit and/or counseling patient: - Constitutional Vitals: Temp Pulse Resp BP Pulse Ox 98.3 F 77 18 116/59 97 02/18/18 15:00 02/18/18 15:00 02/18/18 16:15 02/18/18 15:00 02/18/18 16:15 Internal Medicine: Result - Labs CBC & Chem 7: 02/18/18 08:38 02/17/18 05:02 Labs: Short CBC 02/18/18 Range/Units 08:38 WBC 9.0 (4.3-11.1) K/mcL Hgb 9.0 L (11.5-15.4) g/dL Hct 29.9 L (35.3-44.9) % Plt Count 273 (140-400) K/mcL Neutrophils # 8.5 (1.6-8.9) K/mcL - ABG Interpretation ABG results: ABG ABG pH 7.32 pH Units (7.32-7.45) 02/17/18 04:56 ABG pCO2 66 mmHg (35-45) H 02/17/18 04:56 ABG pO2 78 mmHg (85-104) L D 02/17/18 04:56 ABG O2 Saturation 94 % (95-98) L 02/17/18 04:56 PT/INR, D-dimer PT 12.8 Seconds (9.4-12.1) H 02/16/18 22:36 - Attending Attestation I examined this patient and my medical decision-making was reviewed with the Resident Physician on 02/18/18. I agree with the documented findings, disposition and treatment plan as described except to the extent set forth below. Ms Farr is currently admitted for respiratory failure and COPD. She remains moderate to high risk due to potential for worsening clinical and respiratory status. Ms Farr is beginning to do a little better. No fever or chills. Still with dyspnea and needing bipap at times. No GI issues. Exam Alert Mod distress Mucus membranes dry Heart distant Wheeze present Abd soft I/P 1. Resp failure 2. COPD Further diagnoses and plan as above.
[2018-02-18] MEDS: MethylPREDNISolone 40 MG/ML VIAL IVP SCH (16:08)
[2018-02-18] MEDS: *HR* LORazepam 0.5 MG TABLET PO PRN (21:32)
[2018-02-19] MEDS: Ipratropium/Albuterol Neb 3 ML IH SCH ×6 (03:22→23:39)
[2018-02-19 05:28] LABS: Hematocrit 31.1 % (35.3-44.9); Hemoglobin 9.1 g/dL (11.5-15.4); Mean Corpuscular HGB Conc 29.3 g/dL (31.6-35.5); Mean Corpuscular Volume 95.7 fL (83.0-100.0); Mean Platelet Volume 9.8 fL (9.4-12.4); Nucleated Red Blood Cells 0.4 /100 WBC (0); Platelet Count 270 K/mcL (140-400); Red Blood Count 3.25 M/mcL (3.82-4.97); Red Cell Distribution Width 13.9 % (11.5-14.5)
[2018-02-19 05:37] LABS: BUN/Creatinine Ratio 41 (6-26); Blood Urea Nitrogen 41 mg/dL (8-23); Carbon Dioxide 37 mEq/L (23-29); Chloride 103 mEq/L (98-107); Glucose 253 mg/dL (70-105); Magnesium 2.2 mg/dL (1.6-2.6); Osmolality,Calculated 311 (280-300); Phosphorous 2.8 mg/dL (2.7-4.5); Potassium 4.6 mEq/L (3.5-5.1); Sodium 141 mEq/L (136-145); eGFR For African Americans > 60 (> 60); eGFR For Non-African Americans 55 (> 60)
[2018-02-19] MEDS: MethylPREDNISolone 40 MG/ML VIAL IVP SCH ×2 (05:48→16:49)
[2018-02-19] MEDS: *HR* Enoxaparin 40 MG/0.4 ML SYRINGE SQ SCH (05:50)
[2018-02-19 05:54] LABS: Hypochromasia Present (Not Present); Lymphocytes # 0.7 K/mcL (0.6-4.6); Monocytes # 1.3 K/mcL (0.0-1.3); Neutrophils # 6.8 K/mcL (1.6-8.9); Platelet Estimate Normal (Normal)
[2018-02-19] MEDS: Levofloxacin 750 MG/150 ML 750 MG/150 ML BAG IVPB SCH (07:47)
[2018-02-19] MEDS: hydroCHLOROthiazide 25 MG TABLET PO SCH (07:47)
[2018-02-19] MEDS: Insulin LISPRO 300 UNITS/3 ML VIAL SQ SCH ×4 (07:52→21:34)
[2018-02-19] MEDS: Budesonide/Formoterol 160/4.5 MDI IH SCH ×2 (07:58→19:34)
[2018-02-19] MEDS: Insulin DETEMIR 100 UNIT/ML X5UNITS SQ SCH ×2 (09:05→21:37)
--- NOTE | 2018-02-19 10:17 | Internal Med Progress Note ---
<Rishabh Stallings - Last Filed: 02/19/18 11:01> Date of Encounter: 02/19/18 Time of Encounter: 09:15 - Assessment and plan (1) Community acquired pneumonia Current Visit: Yes Status: Acute Assessment and plan: Right lower lobe pneumonia CXR revealed patchy airspace disease of lower lobes bilaterally CTA revealed evidence of consolidation within the right lower lobe. Previous spiculated masses in right apical, left upper, and right middle remained stable. Interval enlargement of mediastinal lymph nodes that are likely reactive Continue with Levaquin started 02/16/18 Day 3 Discontinue Vancomycin Received one dose of Rocephin in the ED Support breathing as above Qualifiers: Laterality: right Lung location: lower lobe of lung Qualified Code(s): J18.1 - Lobar pneumonia, unspecified organism (2) Sepsis Current Visit: Yes Status: Resolved Assessment and plan: Resolved Arrived with tachypnea and tachycardia and found to have RLL pneumonia Initially started on broad spectrum including Vancomycin Sepsis due to RLL pneumonia, classified as CAP, will discontinue vancomyin and continue with levaquin Bp stable Continue per plan in assessment above Qualifiers: Sepsis type: sepsis due to unspecified organism Qualified Code(s): A41.9 - Sepsis, unspecified organism (3) Lung cancer Current Visit: Yes Status: Chronic Assessment and plan: Known history of lung cancer who had previously received treatment Re-demonstration on CTA, remain stable Followup with Oncology as scheduled as outpatient. 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 insulin use: without halfway use Diabetes mellitus complication status: without complication Qualified Code(s): E11.9 - Type 2 diabetes mellitus without complications (5) Hypertension Current Visit: Yes Status: Acute Assessment and plan: Bp controlled, renal function good Will resume home meds for chronic disease management Qualifiers: Hypertension type: essential hypertension Qualified Code(s): I10 - Essential (primary) hypertension (6) DVT prophylaxis Current Visit: Yes Status: Acute Assessment and plan: Currently on subcutaneous heparin, will switch to daily lovenox as history of cancer (7) Acute on chronic respiratory failure with hypoxia and hypercapnia Current Visit: Yes Status: Acute Assessment and plan: Secondary to pneumonia with history of lung cancer 3 day history of worsening dyspnea, arrived to ED in acute respiratory failure and placed on Bipap ABG improved with pH 7.32, pCO2 66, pO2 78 Lactate 1.4, 1.1, 0.7 Patient maintaining adequate oxygen saturation Still having some difficulty with movement Continue Bipap as needed Solumedrol decreased to 40mg q12h, will consider decreasing solumedrol or converting to prednisone tomorrow Continue with duonebs q4h Continue with supplemental oxygen and Bipap as needed - Time Spent With Patient Total time spent is greater than 50% in coordination of care (as documented) at patient's floor/unit and/or counseling patient: - Subjective Interval history: Patient reports that she is doing better than she was yesterday. Her breathing is improved overall, but she still has significant shortness of breath when moving at all. She reports some shakiness with movement to her bedside chair. She generally does not have a problem when lying in bed. She reports having some continued pain in her right chest with deep breathing. She reports that occasional wheeze. She reports minor cough that is unproductive, but denies fever/chills or vomiting. - Constitutional Vitals: Temp Pulse Resp BP Pulse Ox 97.5 F L 59 16 121/62 100 02/19/18 06:45 02/19/18 06:45 02/19/18 06:45 02/19/18 06:45 02/19/18 06:45 General appearance: Present: A&O X 3, no acute distress, obese, answers questions appropriately Exam: Head exam: atraumatic, normal inspection, normocephalic Eye exam: normal appearance, no scleral icterus, no conjunctival injection ENT exam: mucous membranes moist Neck exam general surgery: full ROM, normal inspection, supple, trachea midline Respiratory exam: CTAB, mild rales in right lower lobe, little air movement overall, no respiratory distress/rhonchi/wheezes Cardiovascular exam: RRR, +S1, +S2, no murmurs/rubs/gallops GI/Abdominal exam: normal bowel sounds, soft, non tenderness Extremities exam: full ROM, normal inspection, warm, radial pulses palpable and symmetrical, no pedal edema Neurological exam: alert, oriented X3, strengths equal and symetr throughout Skin exam: dry, intact, normal color, warm Internal Medicine: Result - Labs CBC & Chem 7: 02/19/18 04:56 02/19/18 04:56 Labs: Short CBC 02/19/18 Range/Units 04:56 WBC 9.0 (4.3-11.1) K/mcL Hgb 9.1 L (11.5-15.4) g/dL Hct 31.1 L (35.3-44.9) % Plt Count 270 (140-400) K/mcL Neutrophils # 6.8 (1.6-8.9) K/mcL BMP 02/19/18 04:56 Sodium 141 Potassium 4.6 Chloride 103 Carbon Dioxide 37 H BUN 41 H Creatinine 1.01 Glucose 253 H Calcium 9.0 - ABG Interpretation ABG results: ABG ABG pH 7.32 pH Units (7.32-7.45) 02/17/18 04:56 ABG pCO2 66 mmHg (35-45) H 02/17/18 04:56 ABG pO2 78 mmHg (85-104) L D 02/17/18 04:56 ABG O2 Saturation 94 % (95-98) L 02/17/18 04:56 PT/INR, D-dimer PT 12.8 Seconds (9.4-12.1) H 02/16/18 22:36 Consult Discharge Plan - Plan Referrals: Hosea Martin [Partnered Physician] - 02/25/18 10:00 am <Gregg Bernard - Last Filed: 02/19/18 15:50> Date of Encounter: 02/19/18 - Assessment and plan (1) Acute on chronic respiratory failure with hypoxia and hypercapnia Current Visit: Yes Status: Acute (2) Community acquired pneumonia Current Visit: Yes Status: Acute Qualifiers: Laterality: right Lung location: lower lobe of lung Qualified Code(s): J18.1 - Lobar pneumonia, unspecified organism (3) Sepsis Current Visit: Yes Status: Resolved Qualifiers: Sepsis type: sepsis due to unspecified organism Qualified Code(s): A41.9 - Sepsis, unspecified organism (4) DVT prophylaxis Current Visit: Yes Status: Acute (5) Lung cancer Current Visit: Yes Status: Chronic Qualifiers: Laterality: unspecified laterality Lung location: unspecified part of lung Qualified Code(s): C34.90 - Malignant neoplasm of unspecified part of unspecified bronchus or lung (6) Type 2 diabetes mellitus Current Visit: Yes Status: Chronic Qualifiers: Diabetes mellitus halfway insulin use: without halfway use Diabetes mellitus complication status: without complication Qualified Code(s): E11.9 - Type 2 diabetes mellitus without complications (7) Hypertension Current Visit: Yes Status: Acute Qualifiers: Hypertension type: essential hypertension Qualified Code(s): I10 - Essential (primary) hypertension - Time Spent With Patient Total time spent is greater than 50% in coordination of care (as documented) at patient's floor/unit and/or counseling patient: - Constitutional Vitals: Temp Pulse Resp BP Pulse Ox 98.1 F 69 15 138/78 94 02/19/18 14:33 02/19/18 14:33 02/19/18 14:33 02/19/18 14:33 02/19/18 14:33 Internal Medicine: Result - Labs CBC & Chem 7: 02/19/18 04:56 02/19/18 04:56 Labs: Short CBC 02/19/18 Range/Units 04:56 WBC 9.0 (4.3-11.1) K/mcL Hgb 9.1 L (11.5-15.4) g/dL Hct 31.1 L (35.3-44.9) % Plt Count 270 (140-400) K/mcL Neutrophils # 6.8 (1.6-8.9) K/mcL BMP 02/19/18 04:56 Sodium 141 Potassium 4.6 Chloride 103 Carbon Dioxide 37 H BUN 41 H Creatinine 1.01 Glucose 253 H Calcium 9.0 - ABG Interpretation ABG results: ABG ABG pH 7.32 pH Units (7.32-7.45) 02/17/18 04:56 ABG pCO2 66 mmHg (35-45) H 02/17/18 04:56 ABG pO2 78 mmHg (85-104) L D 02/17/18 04:56 ABG O2 Saturation 94 % (95-98) L 02/17/18 04:56 PT/INR, D-dimer PT 12.8 Seconds (9.4-12.1) H 02/16/18 22:36 - Attending Attestation I examined this patient and my medical decision-making was reviewed with the Resident Physician on 02/19/18. I agree with the documented findings, disposition and treatment plan as described except to the extent set forth below. Ms Farr is currently admitted for acute resp failure and COPD. She remains moderate to high risk due to potential for worsening clinical and respiratory status. Ms Farr is up in the chair. She is breathing somewhat better but still dyspneic with movement. No fever. Still with cough. No GI issues. Exam Alert. More comfortab le today. Mucus membranes dry Heart distant Scattered rales and wheeze I/P 1. Respiratory failure 2. COPD Further diagnoses and plan as above.
[2018-02-19] MEDS: *HR* LORazepam 0.5 MG TABLET PO PRN (23:53)
[2018-02-20] MEDS: Ipratropium/Albuterol Neb 3 ML IH SCH ×6 (03:34→23:38)
[2018-02-20 04:27] LABS: Hematocrit 29.5 % (35.3-44.9); Mean Corpuscular HGB Conc 30.5 g/dL (31.6-35.5); Mean Corpuscular Hemoglobin 28.8 pg (28.0-33.3); Mean Corpuscular Volume 94.2 fL (83.0-100.0); Mean Platelet Volume 9.4 fL (9.4-12.4); Nucleated Red Blood Cells 0.4 /100 WBC (0); Platelet Count 277 K/mcL (140-400); Red Blood Count 3.13 M/mcL (3.82-4.97); Red Cell Distribution Width 13.7 % (11.5-14.5)
[2018-02-20 04:47] LABS: BUN/Creatinine Ratio 39 (6-26); Blood Urea Nitrogen 37 mg/dL (8-23); Carbon Dioxide 36 mEq/L (23-29); Chloride 99 mEq/L (98-107); Glucose 238 mg/dL (70-105); Osmolality,Calculated 308 (280-300); Potassium 4.5 mEq/L (3.5-5.1); Sodium 141 mEq/L (136-145); eGFR For African Americans > 60 (> 60); eGFR For Non-African Americans 59 (> 60)
[2018-02-20 05:52] LABS: Lymphocytes # 0.9 K/mcL (0.6-4.6); Monocytes # 0.4 K/mcL (0.0-1.3); Platelet Estimate Normal (Normal)
[2018-02-20 05:53] LABS: Hypochromasia Present (Not Present)
[2018-02-20] MEDS: MethylPREDNISolone 40 MG/ML VIAL IVP SCH (06:20)
[2018-02-20] MEDS: *HR* Enoxaparin 40 MG/0.4 ML SYRINGE SQ SCH (06:20)
[2018-02-20] MEDS: Budesonide/Formoterol 160/4.5 MDI IH SCH ×2 (07:40→20:25)
[2018-02-20] MEDS: hydroCHLOROthiazide 25 MG TABLET PO SCH (08:11)
[2018-02-20] MEDS: levoFLOXacin 750 MG TABLET PO SCH (08:11)
[2018-02-20] MEDS: Insulin LISPRO 300 UNITS/3 ML VIAL SQ SCH ×4 (08:12→21:40)
[2018-02-20] MEDS: Insulin DETEMIR 100 UNIT/ML X5UNITS SQ SCH ×2 (08:12→21:40)
[2018-02-20] MEDS ORDERED: Insulin DETEMIR 100 UNIT/ML X5UNITS SQ SCH ×2 (08:30→09:00)
--- NOTE | 2018-02-20 09:14 | Internal Med Progress Note ---
<Uriel Watts - Last Filed: 02/20/18 15:30> Date of Encounter: 02/20/18 Time of Encounter: 09:12 - Assessment and plan (1) Sepsis Current Visit: Yes Status: Resolved Assessment and plan: Resolved Arrived with tachypnea and tachycardia and found to have RLL pneumonia Initially started on broad spectrum including Vancomycin Sepsis due to RLL pneumonia, classified as CAP, will discontinue vancomyin and continue with levaquin Bp stable Continue per plan in assessment above Qualifiers: Sepsis type: sepsis due to unspecified organism Qualified Code(s): A41.9 - Sepsis, unspecified organism (2) Community acquired pneumonia Current Visit: Yes Status: Acute Assessment and plan: Right lower lobe pneumonia CXR revealed patchy airspace disease of lower lobes bilaterally CTA revealed evidence of consolidation within the right lower lobe. Previous spiculated masses in right apical, left upper, and right middle remained stable. Interval enlargement of mediastinal lymph nodes that are likely reactive Continue with Levaquin started 02/16/18 Day 4 Discontinued Vancomycin Received one dose of Rocephin in the ED Support breathing as above Qualifiers: Laterality: right Lung location: lower lobe of lung Qualified Code(s): J18.1 - Lobar pneumonia, unspecified organism (3) Lung cancer Current Visit: Yes Status: Chronic Assessment and plan: Known history of lung cancer who had previously received treatment Re-demonstration on CTA, remain stable Followup with Oncology as scheduled as outpatient. Qualifiers: Laterality: unspecified laterality Lung location: unspecified part of lung Qualified Code(s): C34.90 - Malignant neoplasm of unspecified part of unspecified bronchus or lung (4) Hypertension Current Visit: Yes Status: Acute Assessment and plan: Bp controlled, renal function good Will resume home meds for chronic disease management Qualifiers: Hypertension type: essential hypertension Qualified Code(s): I10 - Essential (primary) hypertension (5) Type 2 diabetes mellitus Current Visit: Yes Status: Chronic Assessment and plan: Known history of type II diabetes BG has been elevated up to the upper 200s-300s, likely due to steroids WIncrease to 12 Units levemir bid Continue medium sliding scale Continue with ADA diet and sliding scale insulin Continue regular glucose monitoring Qualifiers: Diabetes mellitus penitentiary insulin use: without intermediate manager use Diabetes mellitus complication status: without complication Qualified Code(s): E11.9 - Type 2 diabetes mellitus without complications (6) DVT prophylaxis Current Visit: Yes Status: Acute Assessment and plan: Continue with Lovenox for dvt ppx. (7) Acute on chronic respiratory failure with hypoxia and hypercapnia Current Visit: Yes Status: Acute Assessment and plan: Secondary to pneumonia with history of lung cancer 3 day history of worsening dyspnea, arrived to ED in acute respiratory failure and placed on Bipap ABG improved with pH 7.32, pCO2 66, pO2 78 Lactate 1.4, 1.1, 0.7 Patient maintaining adequate oxygen saturation Still having some difficulty with movement/exertion. Baseline reported as about 5 yards before feeling short of breath. Continue with Levaquin d4 for RLL pneumonia. Continue Bipap as needed Discontinue solumedrol, start prednisone 40mg qd. Continue with duonebs q4h Continue with supplemental oxygen and Bipap as needed Qualification for oxygen, home health orders in. - Time Spent With Patient Total time spent is greater than 50% in coordination of care (as documented) at patient's floor/unit and/or counseling patient: - Subjective Interval history: Ms. Farr reports doing better, less short of breath than yesterday, but still hasn't moved around out of bed much because she is hooked up to a lot of monitors. Patient reports her baseline prior was 4L and about 5 yards slowly before getting very winded. Denies fevers, chills, sweats, nausea, vomiting, chest pain, abdominal pain, changes in bowels or bladder, or weakness. - Constitutional Vitals: Temp Pulse Resp BP Pulse Ox 97.7 F 60 16 144/73 98 02/20/18 07:27 02/20/18 07:27 02/20/18 07:27 02/20/18 07:27 02/20/18 07:27 General appearance: Present: A&O X 3, no acute distress, obese, answers questions appropriately - Head Head exam: Present: atraumatic, normal inspection, normocephalic - Eye Eye exam: Present: EOMI, normal appearance - ENT ENT exam: Present: mucous membranes moist, normal exam - Neck Neck exam general surgery: Present: full ROM, normal inspection, supple, trachea midline - Respiratory Respiratory exam: Present: wheezes (minimal expiratory wheezing). Absent: rales , respiratory distress, rhonchi Additional comments: satting well on 4L nasal cannula - Cardiovascular Cardiovascular exam: Present: RRR - GI/Abdominal GI/Abdominal exam: Present: normal bowel sounds, soft. Absent: tenderness - Extremities Exam Extremities exam: Present: full ROM, normal inspection, warm, radial pulses palpable and symmetrical - Neurological Exam Neurological exam: Present: alert, oriented X3, no focal deficits, strengths equal and symetr throughout - Skin Skin exam: Present: dry, intact, normal color, warm Internal Medicine: Result - Labs CBC & Chem 7: 02/20/18 03:56 02/20/18 03:56 Labs: Short CBC 02/20/18 Range/Units 03:56 WBC 8.5 (4.3-11.1) K/mcL Hgb 9.0 L (11.5-15.4) g/dL Hct 29.5 L (35.3-44.9) % Plt Count 277 (140-400) K/mcL Neutrophils # 7.0 (1.6-8.9) K/mcL BMP 02/20/18 03:56 Sodium 141 Potassium 4.5 Chloride 99 Carbon Dioxide 36 H BUN 37 H Creatinine 0.95 Glucose 238 H Calcium 9.0 - ABG Interpretation ABG results: ABG ABG pH 7.32 pH Units (7.32-7.45) 02/17/18 04:56 ABG pCO2 66 mmHg (35-45) H 02/17/18 04:56 ABG pO2 78 mmHg (85-104) L D 02/17/18 04:56 ABG O2 Saturation 94 % (95-98) L 02/17/18 04:56 PT/INR, D-dimer PT 12.8 Seconds (9.4-12.1) H 02/16/18 22:36 Consult Discharge Plan - Plan Referrals: Hosea Martin [Partnered Physician] - 02/25/18 10:00 am <Gregg Bernard - Last Filed: 02/20/18 17:31> Date of Encounter: 02/20/18 - Assessment and plan (1) Acute on chronic respiratory failure with hypoxia and hypercapnia Current Visit: Yes Status: Acute (2) COPD (chronic obstructive pulmonary disease) Current Visit: No Status: Resolved Qualifiers: COPD type: COPD with acute exacerbation Qualified Code(s): J44.1 - Chronic obstructive pulmonary disease with (acute) exacerbation (3) Community acquired pneumonia Current Visit: Yes Status: Acute Qualifiers: Laterality: right Lung location: lower lobe of lung Qualified Code(s): J18.1 - Lobar pneumonia, unspecified organism (4) Sepsis Current Visit: Yes Status: Resolved Qualifiers: Sepsis type: sepsis due to unspecified organism Qualified Code(s): A41.9 - Sepsis, unspecified organism (5) DVT prophylaxis Current Visit: Yes Status: Acute (6) Lung cancer Current Visit: Yes Status: Chronic Qualifiers: Laterality: unspecified laterality Lung location: unspecified part of lung Qualified Code(s): C34.90 - Malignant neoplasm of unspecified part of unspecified bronchus or lung (7) Type 2 diabetes mellitus Current Visit: Yes Status: Chronic Qualifiers: Diabetes mellitus intermediate manager insulin use: without intermediate manager use Diabetes mellitus complication status: with hyperglycemia Qualified Code(s): E11.65 - Type 2 diabetes mellitus with hyperglycemia (8) Hypertension Current Visit: Yes Status: Acute Qualifiers: Hypertension type: essential hypertension Qualified Code(s): I10 - Essential (primary) hypertension - Time Spent With Patient Total time spent is greater than 50% in coordination of care (as documented) at patient's floor/unit and/or counseling patient: - Constitutional Vitals: Temp Pulse Resp BP Pulse Ox 97.9 F 72 16 136/78 95 02/20/18 15:35 02/20/18 15:35 02/20/18 16:01 02/20/18 15:35 02/20/18 16:01 Internal Medicine: Result - Labs CBC & Chem 7: 02/20/18 03:56 02/20/18 03:56 Labs: Short CBC 02/20/18 Range/Units 03:56 WBC 8.5 (4.3-11.1) K/mcL Hgb 9.0 L (11.5-15.4) g/dL Hct 29.5 L (35.3-44.9) % Plt Count 277 (140-400) K/mcL Neutrophils # 7.0 (1.6-8.9) K/mcL BMP 02/20/18 03:56 Sodium 141 Potassium 4.5 Chloride 99 Carbon Dioxide 36 H BUN 37 H Creatinine 0.95 Glucose 238 H Calcium 9.0 - ABG Interpretation ABG results: ABG ABG pH 7.32 pH Units (7.32-7.45) 02/17/18 04:56 ABG pCO2 66 mmHg (35-45) H 02/17/18 04:56 ABG pO2 78 mmHg (85-104) L D 02/17/18 04:56 ABG O2 Saturation 94 % (95-98) L 02/17/18 04:56 PT/INR, D-dimer PT 12.8 Seconds (9.4-12.1) H 02/16/18 22:36 - Attending Attestation I examined this patient and my medical decision-making was reviewed with the Resident Physician on 02/20/18. I agree with the documented findings, disposition and treatment plan as described except to the extent set forth below. Ms Farr is currently admitted for acute resp failure and COPD. She remains moderate to high risk due to potential for worsening clinical and respiratory status. Ms Farr feels better today. She is still fairly dyspneic with walking around. No fever or chills. No GI issues. Exam alert. comfortable Mucus membranes dry Heart reg Less wheeze today Abd soft I/P 1. Resp failure 2. COPD Further diagnoses and plan as above
--- NOTE | 2018-02-20 13:10 | Physician Discharge Referral ---
Home Health/Hosp Referral Info Transfer to: Home Health Attending Provider: Dr. Bernard Provider in Charge Post Discharge: PCP - Diagnosis (1) Community acquired pneumonia Priority: Primary Status: Acute (2) Acute on chronic respiratory failure with hypoxia and hypercapnia Priority: Primary Status: Acute (3) Sepsis Priority: Secondary Status: Resolved (4) Lung cancer Priority: Secondary Status: Chronic (5) Type 2 diabetes mellitus Priority: Secondary Status: Chronic (6) Hypertension Priority: Secondary Status: Acute - Respiratory Orders Oxygen / L per min (4-8) Smoking Cessation: Smoking cessation has been advised. For more information, call the [place] Tobacco Quit Line at 3-966-VQAT-NOW. - Diet/Nutrition Diet/Nutrition Orders: No Concentrated Sweets - Activity Activity Orders: Up ad tejas, Chair, Walker - Services Needed Following services are medically necessary services: Nursing, Home Health Aide, Physical Therapy, Occupational Therapy, Med Social Work - Transfer Medications Home Medications: Atenolol [Tenormin] 50 mg PO BID 10/23/15 [History] Glimepiride [Amaryl] 2 mg PO BID 10/23/15 [History] Losartan Potassium [Cozaar] 50 mg PO BID 10/23/15 [History] hydroCHLOROthiazide [Hydrochlorothiazide] 25 mg PO DAILY 10/23/15 [History] Albuterol Sulfate [Proair Respiclick] 1 puff IH Q6H PRN 04/22/16 [History] Budesonide/Formoterol 160/4.5 [Symbicort 160/4.5] 2 puff IH BIDR 04/22/16 [ History] Theophylline Anhydrous [Mick-24] 100 mg PO DAILY 10/24/16 [History] metFORMIN [Glucophage] 500 mg PO BID 10/24/16 [History] Benzonatate [Tessalon] 200 mg PO TID PRN #30 capsule 02/16/18 [Rx] Tiotropium [Spiriva] 18 mcg IH DAILY 02/16/18 [History] cephALEXin [Keflex] 500 mg PO QID #40 capsule 02/16/18 [Rx] predniSONE [PredniSONE] 60 mg PO DAILY 5 Days tablet 02/16/18 [Rx] Allergies/Adverse Reactions: 3 Allergy/AdvReac Type Severity Reaction Status Date / Time roflumilast [From Dalires] AdvReac Cramping Verified 02/16/18 12:54 of the Muscles Certification: Further, I certify that my clinical findings support that this patient is homebound (i.e. absences from home require considerable and taxing effort and are for medical reasons or hinduism services or infrequently or short duration when for other reasons) because: Homebound Reason: Patient requires assistance of a person or device to safely leave home, Severity of cardiac or pulmonary status limits activity tolerance Attestation: My signature below is to certify that this patient is under my care and that I, or nurse practitioner, or a physician's evaluation assistant working with me, has a face-to -face encounter with this patient.
[2018-02-21] MEDS: Ipratropium/Albuterol Neb 3 ML IH SCH ×6 (03:52→23:30)
[2018-02-21 04:44] LABS: BUN/Creatinine Ratio 37 (6-26); Blood Urea Nitrogen 35 mg/dL (8-23); Calcium 9.7 mg/dL (8.6-10.3); Carbon Dioxide 40 mEq/L (23-29); Chloride 96 mEq/L (98-107); Glucose 149 mg/dL (70-105); Osmolality,Calculated 301 (280-300); Potassium 4.1 mEq/L (3.5-5.1); Sodium 140 mEq/L (136-145); eGFR For African Americans > 60 (> 60); eGFR For Non-African Americans 59 (> 60)
[2018-02-21] MEDS: *HR* Enoxaparin 40 MG/0.4 ML SYRINGE SQ SCH (05:29)
[2018-02-21] MEDS: *HR* LORazepam 0.5 MG TABLET PO PRN (05:36)
[2018-02-21 05:55] LABS: ABG Base Excess 16 mEq/L (-2 to 3); ABG HCO3 44 mEq/L (21-27); ABG Oxygen Saturation 89 % (95-98); ABG PCO2 70 mmHg (35-45); ABG PO2 59 mmHg (85-104); ABG TCO2 46 mEq/L (20-26)
[2018-02-21] MEDS: Budesonide/Formoterol 160/4.5 MDI IH SCH ×2 (07:39→19:52)
[2018-02-21] MEDS ORDERED: Levofloxacin 750 MG/150 ML 750 MG/150 ML BAG IVPB SCH (09:00)
[2018-02-21] MEDS: Insulin LISPRO 300 UNITS/3 ML VIAL SQ SCH ×4 (09:23→20:37)
[2018-02-21] MEDS: predniSONE 20 MG TABLET PO SCH (09:24)
[2018-02-21] MEDS: hydroCHLOROthiazide 25 MG TABLET PO SCH (09:24)
[2018-02-21] MEDS: levoFLOXacin 750 MG TABLET PO SCH (09:24)
[2018-02-21] MEDS: Insulin DETEMIR 100 UNIT/ML X5UNITS SQ SCH ×2 (09:31→20:34)
--- NOTE | 2018-02-21 14:03 | Internal Med Progress Note ---
<Urbano Hernadez - Last Filed: 02/21/18 13:57> Date of Encounter: 02/21/18 Time of Encounter: 13:57 - Assessment and plan (1) Community acquired pneumonia Current Visit: Yes Status: Acute Assessment and plan: Right lower lobe pneumonia CTA revealed evidence of consolidation within the right lower lobe. Previous spiculated masses in right apical, left upper, and right middle remained stable. Interval enlargement of mediastinal lymph nodes that are likely reactive Continue with Levaquin started 02/16/18 Day 5 out of 7 Qualifiers: Laterality: right Lung location: lower lobe of lung Qualified Code(s): J18.1 - Lobar pneumonia, unspecified organism (2) COPD (chronic obstructive pulmonary disease) Current Visit: Yes Status: Resolved Assessment and plan: resolved. Continue Symbicort and DuoNeb. patients steroids decreased to prednisone and will be sent home on taper. Qualifiers: COPD type: COPD with acute exacerbation Qualified Code(s): J44.1 - Chronic obstructive pulmonary disease with (acute) exacerbation (3) Sepsis Current Visit: Yes Status: Resolved Assessment and plan: resolved. 2nd to pna Qualifiers: Sepsis type: sepsis due to unspecified organism Qualified Code(s): A41.9 - Sepsis, unspecified organism (4) DVT prophylaxis Current Visit: Yes Status: Acute Assessment and plan: Continue with Lovenox for dvt ppx. (5) Lung cancer Current Visit: Yes Status: Chronic Assessment and plan: Known history of lung cancer who had previously received treatment Re-demonstration on CTA, remain stable Followup with Oncology as scheduled as outpatient. Qualifiers: Laterality: unspecified laterality Lung location: unspecified part of lung Qualified Code(s): C34.90 - Malignant neoplasm of unspecified part of unspecified bronchus or lung (6) Type 2 diabetes mellitus Current Visit: Yes Status: Chronic Assessment and plan: Known history of type II diabetes BG has been elevated up to the upper 200s-300s, likely due to steroids Continue Levemir and medium dose sliding scale. Continue diabetic diet. 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 Continue home medications. Qualifiers: Hypertension type: essential hypertension Qualified Code(s): I10 - Essential (primary) hypertension (8) Acute on chronic respiratory failure with hypoxia and hypercapnia Current Visit: Yes Status: Acute Assessment and plan: Secondary to pneumonia and COPD exacerbation. Continue supplemental oxygen. BiPAP qualification overnight. - Time Spent With Patient Total time spent is greater than 50% in coordination of care (as documented) at patient's floor/unit and/or counseling patient: - Subjective Interval history: This morning patient reports her shortness of breath is at baseline. Overnight hospice was patient as her bicarbonate was elevated and ABG was ordered which showed a PCO2 of 70 with compensated pH. she was able to ambulate at a greater distance today before getting sob. - Constitutional Vitals: Temp Pulse Resp BP Pulse Ox 97.9 F 70 18 120/67 91 02/21/18 10:36 02/21/18 10:36 02/21/18 10:36 02/21/18 10:36 02/21/18 10:36 General appearance: Present: A&O X 3, no acute distress, obese, answers questions appropriately - Other Additional findings: General: plesant without distress Heart: Regular rate and rhythm with no murmur Lungs: Clear to auscultation bilaterally but diminished. Abdomen: Soft nontender, nondistended positive bowel sounds Skin: warm and dry, absent rash Extremities: Absent pedal edema, Neuro: alert oriented x 3 Vascular: Pedal and radial pulses 2 out of 4 Internal Medicine: Result - Labs CBC & Chem 7: 02/20/18 03:56 02/21/18 03:56 Labs: BMP 02/21/18 03:56 Sodium 140 Potassium 4.1 Chloride 96 L Carbon Dioxide 40 H* BUN 35 H Creatinine 0.94 Glucose 149 H Calcium 9.7 - ABG Interpretation ABG results: ABG ABG pH 7.40 pH Units (7.32-7.45) 02/21/18 05:50 ABG pCO2 70 mmHg (35-45) H* 02/21/18 05:50 ABG pO2 59 mmHg (85-104) L 02/21/18 05:50 ABG O2 Saturation 89 % (95-98) L 02/21/18 05:50 PT/INR, D-dimer PT 12.8 Seconds (9.4-12.1) H 02/16/18 22:36 Consult Discharge Plan - Plan Referrals: Savaille,Hosea E [Partnered Physician] - 02/25/18 10:00 am <Gregg Bernard - Last Filed: 02/21/18 16:45> Date of Encounter: 02/21/18 - Assessment and plan (1) Acute on chronic respiratory failure with hypoxia and hypercapnia Current Visit: Yes Status: Acute (2) COPD (chronic obstructive pulmonary disease) Current Visit: Yes Status: Resolved Qualifiers: COPD type: COPD with acute exacerbation Qualified Code(s): J44.1 - Chronic obstructive pulmonary disease with (acute) exacerbation (3) Community acquired pneumonia Current Visit: Yes Status: Acute Qualifiers: Laterality: right Lung location: lower lobe of lung Qualified Code(s): J18.1 - Lobar pneumonia, unspecified organism (4) Sepsis Current Visit: Yes Status: Resolved Qualifiers: Sepsis type: sepsis due to unspecified organism Qualified Code(s): A41.9 - Sepsis, unspecified organism (5) DVT prophylaxis Current Visit: Yes Status: Acute (6) Lung cancer Current Visit: Yes Status: Chronic Qualifiers: Laterality: unspecified laterality Lung location: unspecified part of lung Qualified Code(s): C34.90 - Malignant neoplasm of unspecified part of unspecified bronchus or lung (7) Type 2 diabetes mellitus Current Visit: Yes Status: Chronic Qualifiers: Diabetes mellitus shelter insulin use: without vocational auto body instructor use Diabetes mellitus complication status: with hyperglycemia Qualified Code(s): E11.65 - Type 2 diabetes mellitus with hyperglycemia (8) Hypertension Current Visit: Yes Status: Chronic Qualifiers: Hypertension type: essential hypertension Qualified Code(s): I10 - Essential (primary) hypertension - Time Spent With Patient Total time spent is greater than 50% in coordination of care (as documented) at patient's floor/unit and/or counseling patient: - Constitutional Vitals: Temp Pulse Resp BP Pulse Ox 98.5 F 68 18 128/70 94 02/21/18 15:20 02/21/18 15:20 02/21/18 15:34 02/21/18 15:34 02/21/18 15:34 Internal Medicine: Result - Labs CBC & Chem 7: 02/20/18 03:56 02/21/18 03:56 Labs: BMP 02/21/18 03:56 Sodium 140 Potassium 4.1 Chloride 96 L Carbon Dioxide 40 H* BUN 35 H Creatinine 0.94 Glucose 149 H Calcium 9.7 - ABG Interpretation ABG results: ABG ABG pH 7.40 pH Units (7.32-7.45) 02/21/18 05:50 ABG pCO2 70 mmHg (35-45) H* 02/21/18 05:50 ABG pO2 59 mmHg (85-104) L 02/21/18 05:50 ABG O2 Saturation 89 % (95-98) L 02/21/18 05:50 PT/INR, D-dimer PT 12.8 Seconds (9.4-12.1) H 02/16/18 22:36 - Attending Attestation I examined this patient and my medical decision-making was reviewed with the Resident Physician on 02/21/18. I agree with the documented findings, disposition and treatment plan as described except to the extent set forth below. Ms Farr is currently admitted for resp failure and COPD. She remains moderate to high risk due to potential for worsening clinical and respiratory status. Ms Farr is doing ok. She is less dyspneic with movement. No fever or chills. No GI issues. Exam alert Comfortable Mucus membranes dry Heart not tachy Scant wheeze I/P 1. Resp failure 2. COPD Bipap qualification study tonight. Further diagnoses and plan as above.
[2018-02-22] MEDS: Ipratropium/Albuterol Neb 3 ML IH SCH ×3 (03:54→11:14)
[2018-02-22] MEDS: *HR* Enoxaparin 40 MG/0.4 ML SYRINGE SQ SCH (05:48)
[2018-02-22 06:33] VITALS: BP 148/70
[2018-02-22] MEDS: Budesonide/Formoterol 160/4.5 MDI IH SCH (07:54)
[2018-02-22] MEDS: Insulin LISPRO 300 UNITS/3 ML VIAL SQ SCH (08:48)
[2018-02-22] MEDS: hydroCHLOROthiazide 25 MG TABLET PO SCH (08:53)
[2018-02-22] MEDS: levoFLOXacin 750 MG TABLET PO SCH (08:53)
[2018-02-22] MEDS: predniSONE 20 MG TABLET PO SCH (08:53)
[2018-02-22] MEDS: Insulin DETEMIR 100 UNIT/ML X5UNITS SQ SCH (08:56)
--- NOTE | 2018-02-22 09:06 | Discharge Summary ---
<Urbano Hernadez - Last Filed: 02/22/18 09:03> - NOTES TO OUTPATIENT PROVIDER Notes to Outpatient Provider: Patient presented with shortness of breath and was found to be septic secondary to pneumonia. She was treated with IV antibiotics. Patient had a bypass qualification study and qualified for BiPAP. She will be discharged with her home oxygen level of 3 L and home health with PT/OT. Orders not resulted at time of discharge: Pending orders 02/22/18 04:00 ABG [Arterial Blood Gas] AM 0400 Date of Encounter: 02/22/18 Time of Encounter: 09:04 - Discharge Diagnosis (1) COPD (chronic obstructive pulmonary disease) Priority: Secondary Status: Resolved Qualifiers: COPD type: COPD with acute exacerbation Qualified Code(s): J44.1 - Chronic obstructive pulmonary disease with (acute) exacerbation (2) Community acquired pneumonia Priority: Secondary Status: Acute Qualifiers: Laterality: right Lung location: lower lobe of lung Qualified Code(s): J18.1 - Lobar pneumonia, unspecified organism (3) Sepsis Priority: Secondary Status: Resolved Qualifiers: Sepsis type: sepsis due to unspecified organism Qualified Code(s): A41.9 - Sepsis, unspecified organism (4) DVT prophylaxis Priority: Secondary Status: Acute (5) Lung cancer Priority: Secondary Status: Chronic Qualifiers: Laterality: unspecified laterality Lung location: unspecified part of lung Qualified Code(s): C34.90 - Malignant neoplasm of unspecified part of unspecified bronchus or lung (6) Type 2 diabetes mellitus Priority: Secondary Status: Chronic Qualifiers: Diabetes mellitus snf insulin use: without snf use Diabetes mellitus complication status: with hyperglycemia Qualified Code(s): E11.65 - Type 2 diabetes mellitus with hyperglycemia (7) Hypertension Priority: Secondary Status: Chronic Qualifiers: Hypertension type: essential hypertension Qualified Code(s): I10 - Essential (primary) hypertension (8) Acute on chronic respiratory failure with hypoxia and hypercapnia Priority: Primary Status: Acute Hospital course: Ms. Farr is a 67 year old female admitted for shortness of breath. On admission she was placed on BiPAP due to respiratory distress. She underwent CT of the chest which showed right lower lobe pneumonia. Patient was started on IV antibiotics. Patient was septic secondary to pneumonia and given IV fluids. IV blood cultures were taken. Patient was given steroids as well for COPD exacerbation. Patient's respiratory function improved with treatment above. She underwent BiPAP qualification's and BiPAP is set up at home. Patient underwent PT/OT assessment and will be set up with home health PT OT. She was weaned down to her home oxygen of 3 L. Today patient is able to ambulate with walker. She is tolerating her diet. She will be discharged with 1 more day of Levaquin with for total 7 days of antibiotics. And a steroid taper. - Time Spent with Patient Total time spent providing and/or coordinating discharge services: - Discharge Medications Prescriptions: levoFLOXacin [Levaquin] 750 mg PO DAILY #1 tablet predniSONE [PredniSONE] 20 mg PO TAPER #7 tablet Home Medications: Atenolol [Tenormin] 50 mg PO BID 10/23/15 [History] Glimepiride [Amaryl] 2 mg PO BID 10/23/15 [History] Losartan Potassium [Cozaar] 50 mg PO BID 10/23/15 [History] hydroCHLOROthiazide [Hydrochlorothiazide] 25 mg PO DAILY 10/23/15 [History] Albuterol Sulfate [Proair Respiclick] 1 puff IH Q6H PRN 04/22/16 [History] Budesonide/Formoterol 160/4.5 [Symbicort 160/4.5] 2 puff IH BIDR 04/22/16 [ History] Theophylline Anhydrous [Mick-24] 100 mg PO DAILY 10/24/16 [History] metFORMIN [Glucophage] 500 mg PO BID 10/24/16 [History] Benzonatate [Tessalon] 200 mg PO TID PRN #30 capsule 02/16/18 [Rx] Tiotropium [Spiriva] 18 mcg IH DAILY 02/16/18 [History] levoFLOXacin [Levaquin] 750 mg PO DAILY #1 tablet 02/22/18 [Rx] predniSONE [PredniSONE] 20 mg PO TAPER #7 tablet 02/22/18 [Rx] Allergies/Adverse Reactions: 3 Allergy/AdvReac Type Severity Reaction Status Date / Time roflumilast [From Daliresp] AdvReac Cramping Verified 02/16/18 12:54 of the Muscles Date of admission: 02/16/18 22:12 Primary care physician: Gregg Cook Consults: 02/18/18 11:05 Consult to Occupational Therapy [CONS] Routine Comment: Evaluate, develop and implement POC Reason for Consult: weakness/deconditioning Does patient have active BEDREST order?: No Is patient medically & hemodynamically stable?: Yes Consult to Physical Therapy [CONS] Routine Comment: Evaluate, develop and implement POC Reason for Consult: weakness/deconditioning Does patient have active BEDREST order?: No Is patient medically & hemodynamically stable?: Yes Discharging clinician: Urbano Hernadez - Constitutional Vitals: Temp Pulse Resp BP Pulse Ox 98 F 60 18 148/70 94 02/22/18 06:28 02/22/18 06:28 02/22/18 07:54 02/22/18 06:28 02/22/18 07:54 General appearance: Present: A&O X 3, no acute distress, obese, answers questions appropriately - Other Additional findings: General: Pleasant without distress HEENT: Head atraumatic, normocephalic, EOMI, PERRL, neck nontender to palpation , absent lymphadenopathy, Moist Mucous Membranes, Heart: Regular rate and rhythm with no murmur Lungs: Clear to auscultation bilaterally Abdomen: Soft nontender, nondistended positive bowel sounds Skin: warm and dry, absent rash Extremities: Absent pedal edema, Neuro: Alert oriented 3 Vascular: Pedal and radial pulses 2 out of 4 - Patient Status Disposition: Home Health Service Condition: Good Functional capacity at discharge: uses cane/walker Overall status at discharge: patient is progressing back to baseline - Discharge Instructions Instructions: Prednisone (By mouth), Levofloxacin (By mouth), Sepsis (DC) Follow Up With: Hosea Martin [Partnered Physician] - 02/25/18 10:00 am Additional Instructions: Continue your home O2 as you previously did. We qualified you for Home Bipap. Please wear this every night. This will help keep you out of the hospital if you are compliant with it. It will help keep your carbon dioxide levels down. We electronically sent your prescriptions to [facility]. We set you up with [employer]. They will be calling you probably tomorrow to set up a time to come to your home. - Diet and Activity Activity: as per physical therapy, increase activity as tolerated, wear oxygen at all times (3L), wear oxygen at night Diet: diabetic diet <Marco AntonioGregg Phelps - Last Filed: 02/22/18 14:02> Orders not resulted at time of discharge: Pending orders 02/22/18 04:00 ABG [Arterial Blood Gas] AM 0400 Date of Encounter: 02/22/18 - Discharge Diagnosis (1) Acute on chronic respiratory failure with hypoxia and hypercapnia Status: Acute (2) COPD (chronic obstructive pulmonary disease) Status: Resolved Qualifiers: COPD type: COPD with acute exacerbation Qualified Code(s): J44.1 - Chronic obstructive pulmonary disease with (acute) exacerbation (3) Community acquired pneumonia Status: Resolved Qualifiers: Laterality: right Lung location: lower lobe of lung Qualified Code(s): J18.1 - Lobar pneumonia, unspecified organism (4) Sepsis Status: Resolved Qualifiers: Sepsis type: sepsis due to unspecified organism Qualified Code(s): A41.9 - Sepsis, unspecified organism (5) DVT prophylaxis Status: Acute (6) Lung cancer Status: Chronic Qualifiers: Laterality: unspecified laterality Lung location: unspecified part of lung Qualified Code(s): C34.90 - Malignant neoplasm of unspecified part of unspecified bronchus or lung (7) Type 2 diabetes mellitus Status: Chronic Qualifiers: 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 Farr is a 67 year old female - Time Spent with Patient Total time spent providing and/or coordinating discharge services: 38min Date of admission: 02/16/18 22:12 Primary care physician: Gregg Cook Consults: 02/18/18 11:05 Consult to Occupational Therapy [CONS] Routine Comment: Evaluate, develop and implement POC Reason for Consult: weakness/deconditioning Does patient have active BEDREST order?: No Is patient medically & hemodynamically stable?: Yes Consult to Physical Therapy [CONS] Routine Comment: Evaluate, develop and implement POC Reason for Consult: weakness/deconditioning Does patient have active BEDREST order?: No Is patient medically & hemodynamically stable?: Yes - Constitutional Vitals: Temp Pulse Resp BP Pulse Ox 98 F 60 18 148/70 94 02/22/18 06:28 02/22/18 06:28 02/22/18 07:54 02/22/18 06:28 02/22/18 07:54 - Attending Attestation I examined this patient and my medical decision-making was reviewed with the Resident Physician on 02/22/18. I agree with the documented findings, disposition and treatment plan as described except to the extent set forth below. Ms Farr has been admitted for respiratory failure and COPD. She is now afebrile and at baseline oxygen requirements. She has qualified for bipap - we will arrange tomorrow. She feels ready for discharge home. Exam Alert. Comfortable Mucus membranes dry Heart reg Scant wheeze Plan D/C home today Bipap arrangement.
== END 2018-02-22 12:19 | disposition home health service (06) | DRG 871 ==
LOC: 2NENU 14:19 → EMEROO 14:19 → 2NENU 20:41 → SUATTDRO 22:12
PROVIDERS: ADMIT Pediatrics; ATTEND Internal Medicine

== ENCOUNTER 2018-03-19 11:41 | Inpatient (IN) ==
[2018-03-19] MEDS ORDERED: methylPREDNISolone 125 MG/2 ML VIAL IVP ONE (11:54)
[2018-03-19] MEDS ORDERED: Ipratropium/Albuterol Neb 3 ML IH ONE (11:54)
[2018-03-19] MEDS ORDERED: Isovue-370 500 ML INFUS..BTL IV ONE (11:55)
[2018-03-19 12:29] LABS: Basophils % 0.3 %; Eosinophils # 0.1 K/mcL (0.0-0.6); Eosinophils % 0.8 %; Hematocrit 32.6 % (35.3-44.9); Hemoglobin 10.2 g/dL (11.5-15.4); Immature Granulocytes % 0.8 % (0-4); Lymphocytes % 15.5 %; Mean Corpuscular HGB Conc 31.3 g/dL (31.6-35.5); Mean Corpuscular Hemoglobin 28.9 pg (28.0-33.3); Mean Corpuscular Volume 92.4 fL (83.0-100.0); Mean Platelet Volume 10.3 fL (9.4-12.4); Monocytes # 0.4 K/mcL (0.0-1.3); Monocytes % 6.7 %; Neutrophils # 4.6 K/mcL (1.6-8.9); Platelet Count 187 K/mcL (140-400); Red Blood Count 3.53 M/mcL (3.82-4.97); Red Cell Distribution Width 14.6 % (11.5-14.5); Segmented Neutrophils % 75.9 %
[2018-03-19 12:34] LABS: Prothrombin Time 10.6 Seconds (9.4-12.1)
[2018-03-19 12:36] LABS: Activated Partial Thrombo Time 27.8 Seconds (26.0-36.0)
--- NOTE | 2018-03-19 12:41 | Emergency Department Note ---
Disposition Clinical Impression: Orthopnea, Exertional dyspnea, RALPH (acute kidney injury), Dehydration, Hyperglycemia Disposition: Admitted As Inpatient Condition: Fair Referrals: Gregg Cook DO [Primary Care Provider] - Forms: Work/School Release, ED Satisfaction Letter Time of Disposition: 14:37 SOB HPI - General Chief Complaint: ED Shortness of Breath/Dyspnea Stated Complaint: Home health said im having a heart attack or CVA. Time Seen by Provider: 03/19/18 11:45 Source: patient, family Mode of arrival: ambulatory Limitations: no limitations, physical limitation Nursing Notes Reviewed: Yes Vital Signs Reviewed: Yes - History of Present Illness Patient presents emergency room at the request of her home health aide for evaluation of shortness of breath and difficulty with walking. Patient denies any chest pain fevers chills nausea vomiting or diarrhea. Denies any headache or vision change. She has not had any new medication she has not fallen. Patient says that over the last several days every time she gets up to walk around to get show short of breath that she feels like she is going to fall down. She denies any falls at this point. She has never had symptoms like this in the past. Patient does typically use 3 L of oxygen at home throughout the day and 4 L when she is ambulating. No other acute changes or issues at this time. Patient's home health aide did tell her that she was worried about either a stroke or heart attack despite the patient not having any neurologic symptoms Pt Subjective Complaint: shortness of breath Onset (ago): day(s) Context: occurred during exertion Severity: severe Consistency/Duration: intermittent Improves with: oxygen, rest, upright position Known history of: COPD, diabetes Associated symptoms: Reports: orthopnea. Denies: chest pain, pain with inspiration, fever, cough, wheezing, sputum production, lower extremity pain, parasthesias, palpitations Cough present: No - Related Data Home oxygen amount: 3 liters Home Medications Medication Instructions Recorded Confirmed Atenolol [Tenormin] 50 mg PO BID 10/23/15 03/19/18 Glimepiride [Amaryl] 2 mg PO BID 10/23/15 03/19/18 Losartan Potassium [Cozaar] 50 mg PO DAILY 10/23/15 03/19/18 hydroCHLOROthiazide 25 mg PO DAILY 10/23/15 03/19/18 [Hydrochlorothiazide] Albuterol Sulfate [Proair 2 puff IH Q4H PRN 04/22/16 03/19/18 Respiclick] Budesonide/Formoterol 160/4.5 2 puff IH BIDR 04/22/16 03/19/18 [Symbicort 160/4.5] Theophylline Anhydrous [Mick-24] 100 mg PO DAILY 10/24/16 03/19/18 metFORMIN [Glucophage] 500 mg PO BID 10/24/16 03/19/18 Albuterol Neb [Proventil Neb] 2.5 mg IH TID PRN 03/19/18 03/19/18 Oxygen 4 l NS DAILY 03/19/18 03/19/18 Simvastatin [Zocor] 20 mg PO HS 03/19/18 03/19/18 Tiotropium [place] [Spiriva 2 puff IH DAILY 03/19/18 03/19/18 Respimat] Zolpidem [Ambien] 5 mg PO HS PRN 03/19/18 03/19/18 Allergies Allergy/AdvReac Type Severity Reaction Status Date / Time roflumilast [From [facility]] AdvReac Cramping Verified 02/16/18 12:54 of the Muscles All systems ED: reviewed and negative except as stated. Review of Systems: As Per HPI Constitutional: Denies: fever, chills, weakness ENT ED: Denies: ear pain, throat pain Cardiovascular: Reports: dyspnea on exertion, orthopnea, edema. Denies: chest pain, palpitations Respiratory: Reports: dyspnea. Denies: cough, wheezes, hemoptysis, stridor, sputum production Gastrointestinal: Denies: abdominal pain, nausea, vomiting, diarrhea Genitourinary: Denies: dysuria, frequency Musculoskeletal: Denies: back pain, neck pain Integumentary: Denies: rash Neurological: Denies: headache, weakness Psychiatric: Denies: anxiety, depression Endocrine: Denies: fatigue Past Medical History - Past Medical History Attestation: Yes The following information was validated with the patient. Source: patient Medical history: Reports: cancer, COPD, diabetes, hypertension, other Surgical history: Reports: cholecystectomy Psychiatric history: Reports: no psych history STUDENT SERVICES DEAN history: Reports: no STUDENT SERVICES DEAN history - Social History Smoking Status: Former smoker Smokeless Tobacco Status: No Alcohol use: Reports: none Drug use: Reports: none Physical Exam - General Limitations: physical limitation General appearance: alert, anxious - Head Head exam: atraumatic, normocephalic, normal inspection - Eye Eye exam: Present: normal appearance, PERRL, EOMI. Absent: miosis, mydriasis - ENT ENT exam: normal exam, normal oropharynx, mucous membranes moist - Neck Neck exam: Present: normal inspection, full ROM, trachea midline. Absent: tenderness, meningismus, lymphadenopathy - Chest Chest inspection: Present: normal inspection, symmetric chest wall rise. Absent : tenderness - Respiratory Respiratory exam: Present: normal lung sounds bilaterally, respiratory distress , accessory muscle use. Absent: wheezes, stridor - Cardiovascular Cardiovascular exam: Present: normal rhythm, tachycardia, normal heart sounds - Abdominal Exam Abdominal exam: Present: soft, Non-Tender, normal bowel sounds. Absent: tenderness, distention, guarding, rebound, rigidity, trauma, Mcdaniels's sign, Rovsing's sign, tenderness at McBurney's Point - Extremities Exam Extremities exam: Present: normal inspection, full ROM, normal capillary refill , pedal edema. Absent: tenderness - Back Exam Back exam: Present: normal inspection - Neurological Exam Neurological exam: Present: alert, oriented X3 - Psychiatric Psychiatric exam: Present: normal affect, normal mood - Skin Skin exam: Present: warm, dry, intact, normal color Course Course Narrative: Patient seen and examined the time of arrival. See history of present illness. 68-year-old female presents to emergency room for evaluation of persistently worsening shortness of breath. Patient typically uses 3 L of oxygen and formal ambulating. Over the last several days she has been unable to ambulate without shortness of breath it causes her to feel issues going to pass out. She denies any chest pain fevers chills nausea vomiting or diarrhea. Denies any headache or vision change. Currently denying any other symptoms except that she feels exertionally short of breath. Patient was seen by her home health aide this morning and they were concerned about possible heart attack versus stroke. Patient denies any neurologic issues including difficulty with speech or walking. Her main complaint is that she when she walks she gets so short of breath that she feels like she is going to pass out. Physical exam is unremarkable. Head is atraumatic pupils are equal round reactive oropharynx is patent her trachea is midline. Mucous membranes are moist. She is alert she is oriented she follows commands. Patient's lungs are clear to auscultation bilaterally despite having some increased work of breathing and orthopnea. Heart is tachycardic but regular. No murmurs noted. Abdomen is soft nontender nondistended with no guarding no rigidity and no peritoneal symptoms. Patient does have slight pitting edema in the bilateral lower extremities but the skin is warm to the touch she has good pulses and capillary refill. Patient does not show any acute neurologic deficits. Cranial nerves II through XII are grossly intact. Patient does not have any chest pain or other symptoms at this point except for the exertional dyspnea. Because of the presentation along with a tachycardia noted on the initial evaluation patient is concerning for possible pulmonary related issues including infection, COPD exacerbation, pulmonary emboli. Patient does not meet criteria for d-dimer evaluation of this point will have CT angiography of the chest ordered along with screening evaluation for cardiac related illness and symptoms. EKG troponin and BNP CBC chemistry lactic acid along with blood cultures will be added on. Patient was just recently evaluated and treated for possible pneumonia. Patient does not require CT imaging of the head she does not have any neurologic deficits and has not fallen and does not show any acute changes in her presentation this point. Patient seems to strictly be here for the increased work of breathing and shortness of breath with exertion. Patient will have workup completed this time. See detailed documentation of the physical exam. Aspirin will be given once patient has been thoroughly evaluated. Otherwise patient is in no apparent distress at this point with her typical oxygen in place. Disposition pending workup and evaluation. - Reevaluation(s) Reevaluation #1: Patient's labs are coming back unremarkable this point. Troponin and BNP are normal. Patient's lactic acid is 3.0. Patient is not currently on metformin based on review of her medications but I will confirm this. Could be secondary to the increased work of breathing. No visible signs of pneumonia or infection in the lungs at this time. CT angiography is still pending. Time: 12:54 Reevaluation #2: Patient's creatinine as well as GFR significantly changed from previous. Patient also has a glucose of greater than 500. Beta hydroxybutyric acid as well as a VBG were added on at this point. Her bicarbonate is normal so less likely for diabetic ketoacidosis at this point be dehydration is a component of the presentation here today the tachycardia. Patient was negative CT angiography of the chest. Fluid resuscitation will be started and repeat physical exams to check volumes and lung capacity. Patient will be admitted after the entirety of the workup is completed. Lovenox will most likely be started secondary to PE rule out once the laboratory workup and treatment course are established. Clinical suspicion for pulmonary emboli is less likely this point considering the context of dehydration as well as AK I and hyperglycemia Time: 13:15 Reevaluation #3: Patient discussed with the hospitalist Dr. Lyles. Reviewed the presentation at length. He had no other recommendations at this time except for intervening on the glucose. Repeat Accu-Chek was ordered prior to that conversation the repeat was 378. 10 units of insulin will be ordered at this point. Patient has been provided at least one air-fluid with the second ordered. Patient did have reviewed with the possible metformin induced lactic acidosis. The remainder of her workup appears to be unremarkable. Patient is otherwise clinically stable will be admitted for further treatment course and evaluation. 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 - Lab Data Lab results reviewed: Yes I reviewed the patient's lab results. Result diagrams: 03/19/18 12:15 03/19/18 12:15 Lab Results 03/19/18 03/19/18 03/19/18 Range/Units 12:15 12:15 12:15 WBC 6.1 (4.3-11.1) K/mcL RBC 3.53 L (3.82-4.97) M/mcL Hgb 10.2 L (11.5-15.4) g/dL Hct 32.6 L (35.3-44.9) % MCV 92.4 (83.0-100.0) fL MCH 28.9 (28.0-33.3) pg MCHC 31.3 L (31.6-35.5) g/dL RDW 14.6 H (11.5-14.5) % Plt Count 187 (140-400) K/mcL MPV 10.3 (9.4-12.4) fL Immature Gran % 0.8 (0-4) % Seg Neutrophils % 75.9 % Lymphocytes % 15.5 % Monocytes % 6.7 % Eosinophils % 0.8 % Basophils % 0.3 % Neutrophils # 4.6 (1.6-8.9) K/mcL Lymphocytes # 1.0 (0.6-4.6) K/mcL Monocytes # 0.4 (0.0-1.3) K/mcL Eosinophils # 0.1 (0.0-0.6) K/mcL Basophils # 0.0 (0.0-0.2) K/mcL PT (9.4-12.1) Seconds INR APTT (26.0-36.0) Seconds VBG pH (7.32-7.42) pH Units VBG pCO2 (41-51) mmHg VBG pO2 (25-50) mmHg VBG HCO3 (21-27) mEq/L Sodium 134 L (136-145) mEq/L Potassium 4.2 (3.5-5.1) mEq/L Chloride 95 L (98-107) mEq/L Carbon Dioxide 29 (23-29) mEq/L BUN 29 H (8-23) mg/dL Creatinine 1.44 H (0.60-1.20) mg/dL Est GFR ( Amer) 44 L (> 60) Est GFR (Non-Af Amer) 36 L (> 60) BUN/Creatinine Ratio 20 (6-26) Glucose 572 H* (70-105) mg/dL Calculated Osmolality 310 H (280-300) Lactic Acid 3.0 H (0.5-2.2) mmol/L Calcium 9.3 (8.6-10.3) mg/dL Troponin I < 0.03 (< 0.04) ng/mL B-Natriuretic Peptide (Less than 100) pg/mL Beta-Hydroxybutyric Acd (0.02-0.27) mmol/L Urine Color (Yellow) Urine Clarity (Clear) Urine pH (5.0-8.0) pH Units Ur Specific [place] (1.010-1.025) Urine Protein (Neg-Trace) mg/dL Urine Glucose (UA) (Normal) mg/dL Urine Ketones (Negative) mg/dL Urine Blood (Negative) Urine Nitrite (Negative) Urine Bilirubin (Negative) Urine Urobilinogen (Normal) mg/dL Ur Leukocyte Esterase (Negative) Ur Culture Indicated? (NO) Specimen Rejected 03/19/18 03/19/18 03/19/18 Range/Units 12:15 12:15 12:15 WBC (4.3-11.1) K/mcL RBC (3.82-4.97) M/mcL Hgb (11.5-15.4) g/dL Hct (35.3-44.9) % MCV (83.0-100.0) fL MCH (28.0-33.3) pg MCHC (31.6-35.5) g/dL RDW (11.5-14.5) % Plt Count (140-400) K/mcL MPV (9.4-12.4) fL Immature Gran % (0-4) % Seg Neutrophils % % Lymphocytes % % Monocytes % % Eosinophils % % Basophils % % Neutrophils # (1.6-8.9) K/mcL Lymphocytes # (0.6-4.6) K/mcL Monocytes # (0.0-1.3) K/mcL Eosinophils # (0.0-0.6) K/mcL Basophils # (0.0-0.2) K/mcL PT 10.6 (9.4-12.1) Seconds INR 1.0 APTT 27.8 (26.0-36.0) Seconds VBG pH (7.32-7.42) pH Units VBG pCO2 (41-51) mmHg VBG pO2 (25-50) mmHg VBG HCO3 (21-27) mEq/L Sodium (136-145) mEq/L Potassium (3.5-5.1) mEq/L Chloride (98-107) mEq/L Carbon Dioxide (23-29) mEq/L BUN (8-23) mg/dL Creatinine (0.60-1.20) mg/dL Est GFR ( Amer) (> 60) Est GFR (Non-Af Amer) (> 60) BUN/Creatinine Ratio (6-26) Glucose (70-105) mg/dL Calculated Osmolality (280-300) Lactic Acid (0.5-2.2) mmol/L Calcium (8.6-10.3) mg/dL Troponin I (< 0.04) ng/mL B-Natriuretic Peptide 47 (Less than 100) pg/mL Beta-Hydroxybutyric Acd (0.02-0.27) mmol/L Urine Color (Yellow) Urine Clarity (Clear) Urine pH (5.0-8.0) pH Units Ur Specific [place] (1.010-1.025) Urine Protein (Neg-Trace) mg/dL Urine Glucose (UA) (Normal) mg/dL Urine Ketones (Negative) mg/dL Urine Blood (Negative) Urine Nitrite (Negative) Urine Bilirubin (Negative) Urine Urobilinogen (Normal) mg/dL Ur Leukocyte Esterase (Negative) Ur Culture Indicated? (NO) Specimen Rejected Accident 03/19/18 03/19/18 03/19/18 Range/Units 12:52 13:18 13:39 WBC (4.3-11.1) K/mcL RBC (3.82-4.97) M/mcL Hgb (11.5-15.4) g/dL Hct (35.3-44.9) % MCV (83.0-100.0) fL MCH (28.0-33.3) pg MCHC (31.6-35.5) g/dL RDW (11.5-14.5) % Plt Count (140-400) K/mcL MPV (9.4-12.4) fL Immature Gran % (0-4) % Seg Neutrophils % % Lymphocytes % % Monocytes % % Eosinophils % % Basophils % % Neutrophils # (1.6-8.9) K/mcL Lymphocytes # (0.6-4.6) K/mcL Monocytes # (0.0-1.3) K/mcL Eosinophils # (0.0-0.6) K/mcL Basophils # (0.0-0.2) K/mcL PT (9.4-12.1) Seconds INR APTT (26.0-36.0) Seconds VBG pH 7.33 (7.32-7.42) pH Units VBG pCO2 65 H (41-51) mmHg VBG pO2 134 H (25-50) mmHg VBG HCO3 34 H (21-27) mEq/L Sodium (136-145) mEq/L Potassium (3.5-5.1) mEq/L Chloride (98-107) mEq/L Carbon Dioxide (23-29) mEq/L BUN (8-23) mg/dL Creatinine (0.60-1.20) mg/dL Est GFR ( Amer) (> 60) Est GFR (Non-Af Amer) (> 60) BUN/Creatinine Ratio (6-26) Glucose (70-105) mg/dL Calculated Osmolality (280-300) Lactic Acid (0.5-2.2) mmol/L Calcium (8.6-10.3) mg/dL Troponin I (< 0.04) ng/mL B-Natriuretic Peptide (Less than 100) pg/mL Beta-Hydroxybutyric Acd 0.15 (0.02-0.27) mmol/L Urine Color Yellow (Yellow) Urine Clarity Clear (Clear) Urine pH 7.0 (5.0-8.0) pH Units Ur Specific [place] 1.027 H (1.010-1.025) Urine Protein Negative (Neg-Trace) mg/dL Urine Glucose (UA) >=1000 H (Normal) mg/dL Urine Ketones Negative (Negative) mg/dL Urine Blood Negative (Negative) Urine Nitrite Negative (Negative) Urine Bilirubin Negative (Negative) Urine Urobilinogen Normal (Normal) mg/dL Ur Leukocyte Esterase Negative (Negative) Ur Culture Indicated? NO (NO) Specimen Rejected - Radiology Data Radiology results reviewed: Yes I reviewed the patient's radiology results. Chest x-ray is unremarkable for acute infectious etiology at this time. - EKG Data EKG attestation: Yes I reviewed and interpreted this EKG. EKG results narrative: EKG shows sinus tachycardia. AR interval appears to be 16. Ventricular rate of 124. QRS duration of 86. QTC of 384. [place] appears to be normal. No acute signs of ST segment elevation or abnormality. EKG was reviewed and confirmed to previous EKG of 02/03/18 with no acute pathology or issue. Previous Q waves as well as morphology were noted in the precordial leads that is similar in comparison the past. No acute signs of WPW or Brugada syndrome.
[2018-03-19] MEDS ORDERED: 0.9 % Sodium Chloride 1,000 ML IVC ONE ×2 (12:46→13:13)
[2018-03-19 12:49] LABS: Troponin I < 0.03 ng/mL (< 0.04)
[2018-03-19] MEDS ORDERED: Aspirin 81 MG TAB.CHEW PO STA (12:53)
[2018-03-19 13:02] LABS: Bilirubin,Urine Negative (Negative); Blood,Urine Negative (Negative); Clarity,Urine Clear (Clear); Color,Urine Yellow (Yellow); Glucose,Urine (UA) >=1000 mg/dL (Normal); Ketones,Urine Negative (Negative); Leukocyte Esterase,Urine Negative (Negative); Nitrite,Urine Negative (Negative); Protein,Urine Negative (Neg-Trace); Specific Gravity,Urine 1.027 (1.010-1.025); Urobilinogen,Urine Normal (Normal)
[2018-03-19 13:05] LABS: BUN/Creatinine Ratio 20 (6-26); Blood Urea Nitrogen 29 mg/dL (8-23); Calcium 9.3 mg/dL (8.6-10.3); Carbon Dioxide 29 mEq/L (23-29); Chloride 95 mEq/L (98-107); Glucose 572 mg/dL (70-105); Osmolality,Calculated 310 (280-300); Potassium 4.2 mEq/L (3.5-5.1); Sodium 134 mEq/L (136-145); eGFR For African Americans 44 (> 60); eGFR For Non-African Americans 36 (> 60)
[2018-03-19 13:47] LABS: VBG HCO3 34 mEq/L (21-27); VBG PCO2 65 mmHg (41-51); VBG PH 7.33 pH Units (7.32-7.42); VBG PO2 134 mmHg (25-50)
[2018-03-19] MEDS ORDERED: Insulin Human Regular 10 UNIT in 0.9 % Sodium Chloride 10 ML IV ONE (14:35)
[2018-03-19] MEDS ORDERED: D5% in Water 1,000 ML IVC PRN (14:43)
[2018-03-19] MEDS ORDERED: Dextrose Gel 15 GM/37.5 ML TUBE PO PRN ×2 (14:43)
[2018-03-19] MEDS ORDERED: *HR* Dextrose 50 % in Water (Syg) 50 ML SYRINGE IVP PRN (14:43)
[2018-03-19] MEDS ORDERED: Ipratropium/Albuterol Neb 3 ML IH PRN (14:45)
[2018-03-19] MEDS ORDERED: Naloxone 0.4 MG/ML INJ IVP PRN (14:49)
--- NOTE | 2018-03-19 14:54 | Internal Med History&Physical ---
Date of Encounter: 03/19/18 Time of Encounter: 14:58 Internal Medicine - H&P: HPI Chief complaint: Shots of breath History of present illness: Ms. Farr is a 68 year old female history of COPD, lung cancer status post chemoradiation on chronic 3-4 L nasal cannula at home, diabetes type 2 on oral agents, hypertension who presents with acute COPD exacerbation and uncontrolled hyperglycemia. Patient lives at home with home health care and developed shortness of breath since yesterday. She has quit smoking and does not smoke. Shortness of breath worse with exertion and improved with rest. She had to turn her option up to 4 L on ambulation as she gets winded walking around her house. She was seen by home health md do resident urgent care this morning and was advised to present to ER. In the ER she was also subsequently found to have uncontrolled hyperglycemia that is accompanied by clinical symptoms of polyuria and polydipsia. She is not on insulin and reports only taking oral glycemic. On review she reports of chronic mild left more than right lower extremity swelling that is typical for her EKG personally reviewed with rate of 124, sinus tachycardia FINDINGS: Cardiac and mediastinal structures appear stable. Improved aeration seen in the right lung base when compared to the previous examination. The areas of parenchymal opacity seen in the left suprahilar region is unchanged when compared to the previous examination. No acute osseous abnormality is identified. XR/XR chest 1V portable IMPRESSION: Improved aeration in the right lung base likely related to resolving pneumonia. No new infiltrate. Past Med Surg Social Fam HX - Past Medical History Medical history: cancer, COPD, diabetes, hypertension, other Psychiatric history: no psych history - Past Surgical History Surgical History: cholecystectomy - Social History Smoking Status: Former smoker Smokeless Tobacco Status: No Alcohol use: none Drug use: none - Family History Father Living Status: Mother Living Status: Internal Medicine - H&P: Meds Atenolol [Tenormin] 50 mg PO BID 10/23/15 [History] Glimepiride [Amaryl] 2 mg PO BID 10/23/15 [History] Losartan Potassium [Cozaar] 50 mg PO DAILY 10/23/15 [History] hydroCHLOROthiazide [Hydrochlorothiazide] 25 mg PO DAILY 10/23/15 [History] Albuterol Sulfate [Proair Respiclick] 2 puff IH Q4H PRN 04/22/16 [History] Budesonide/Formoterol 160/4.5 [Symbicort 160/4.5] 2 puff IH BIDR 04/22/16 [ History] Theophylline Anhydrous [Mick-24] 100 mg PO DAILY 10/24/16 [History] metFORMIN [Glucophage] 500 mg PO BID 10/24/16 [History] Albuterol Neb [Proventil Neb] 2.5 mg IH TID PRN 03/19/18 [History] Oxygen 4 l NS DAILY 03/19/18 [History] Simvastatin [Zocor] 20 mg PO HS 03/19/18 [History] Tiotropium [place] [Spiriva Respimat] 2 puff IH DAILY 03/19/18 [History] Zolpidem [Ambien] 5 mg PO HS PRN 03/19/18 [History] 3 Allergy/AdvReac Type Severity Reaction Status Date / Time roflumilast [From [facility]] AdvReac Cramping Verified 02/16/18 12:54 of the Muscles All Systems PM: A 10-system review of systems was performed and is negative for pertinent findings except as documented above in the HPI. Review of systems: ROS 14 point review of systems reviewed as best as possible given presentation. Pertinent positive or negative as per HPI or otherwise reviewed as negative - Constitutional Vitals: Temp Pulse Resp BP Pulse Ox 98.4 F 108 16 169/83 96 03/19/18 11:46 03/19/18 13:49 03/19/18 13:49 03/19/18 13:49 03/19/18 13:02 Exam: General - AAO x 3 Psych - Appropriate affect/speech. No agitation Eyes - BHARATH. Eye lids intact. No scleral icterus Neuro - No gross peripheral or central neuro deficits on inspection Heart - Sinus. RRR. S1 and S2 present. No added HS/murmurs appreciated. No elevated JVD appreciated. Lung - decreased air entry b/l, No crackles/wheezes appreciated due to decreased air entry GI - Soft, non-tender. No hepatosplenomegaly/ascites. BS+ - No CVA/suprapubic tenderness or palpable bladder distension Skin - Intact. No rash/petechiae/ecchymosis. Mild left more than right lower extremity swelling Internal Med - H&P Results - Labs CBC & Chem 7: 03/19/18 12:15 03/19/18 12:15 Labs: Short CBC 03/19/18 Range/Units 12:15 WBC 6.1 (4.3-11.1) K/mcL Hgb 10.2 L (11.5-15.4) g/dL Hct 32.6 L (35.3-44.9) % Plt Count 187 (140-400) K/mcL Neutrophils # 4.6 (1.6-8.9) K/mcL BMP 03/19/18 12:15 Sodium 134 L Potassium 4.2 Chloride 95 L Carbon Dioxide 29 BUN 29 H Creatinine 1.44 H Glucose 572 H* Calcium 9.3 Cardiac Enzymes 03/19/18 Range/Units 12:15 Troponin I < 0.03 (< 0.04) ng/mL Urine 03/19/18 Range/Units 12:52 Urine Color Yellow (Yellow) Urine Clarity Clear (Clear) Urine pH 7.0 (5.0-8.0) pH Units Ur Specific [place] 1.027 H (1.010-1.025) Urine Protein Negative (Neg-Trace) mg/dL Urine Glucose (UA) >=1000 H (Normal) mg/dL - ABG Interpretation ABG results: 03/19/18 13:39 VBG pH 7.33 VBG pCO2 65 H VBG pO2 134 H VBG HCO3 34 H - Impressions ITS Impressions Chest X-Ray 03/19/18 11:54 IMPRESSION: Improved aeration in the right lung base likely related to resolving pneumonia. No new infiltrate. D/ / Willie Nelson MD / Willie Nelson MD Interpreting Provider: Willie Nelson MD - Assessment and plan (1) COPD exacerbation Current Visit: Yes Status: Acute Assessment and plan: We would start patient on empiric IV steroids, IV azithro, duonebs send serologies on chronic 3-4 L NC (2) RALPH (acute kidney injury) Current Visit: Yes Status: Acute Assessment and plan: start IVF likely 2/2 HCTZ and uncontrolled hyperglycemia (3) Type 2 diabetes mellitus Current Visit: No Status: Chronic Assessment and plan: uncontrolled on oral agents check A1c will need to be on insulin since sugar very high diabetic education. 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 continue rest of med. add norvasc in place Qualifiers: Hypertension type: essential hypertension Qualified Code(s): I10 - Essential (primary) hypertension - Time Spent With Patient Total time spent is greater than 50% in coordination of care (as documented) at patient's floor/unit and/or counseling patient:
[2018-03-19] MEDS ORDERED: Azithromycin 500 MG in D5% in Water 250 ML IVPB SCH (15:00)
[2018-03-19] MEDS ORDERED: Insulin LISPRO 300 UNITS/3 ML VIAL SQ SCH (16:30)
[2018-03-19] MEDS: 0.9 % Sodium Chloride 1,000 ML IVC SCH ×2 (16:36→22:22)
[2018-03-19] MEDS: Ipratropium/Albuterol Neb 3 ML IH SCH ×2 (16:37→21:53)
[2018-03-19] MEDS: Insulin LISPRO 300 UNITS/3 ML VIAL SQ SCH ×3 (17:24→20:48)
[2018-03-19] MEDS: MethylPREDNISolone 40 MG/ML VIAL IVP SCH ×2 (17:25→23:41)
[2018-03-19 20:37] LABS: Adenovirus Not Detected (Not Detect); Coronavirus 229E Not Detected (Not Detect); Coronavirus HKU1 Not Detected (Not Detect); Coronavirus NL63 Not Detected (Not Detect); Coronavirus OC43 Not Detected (Not Detect)
[2018-03-19 20:38] LABS: Bordetella Pertussis Not Detected (Not Detect); Chlamydophila pneumoniae Not Detected (Not Detect); Human Metapneumovirus Not Detected (Not Detect); Human Rhinovirus/Enterovirus Not Detected (Not Detect); Influenza A Subtype 2009 H1 Not Detected (Not Detect); Influenza A Untypeable Not Detected (Not Detect); Influenza B Not Detected (Not Detect); Mycoplasma pneumoniae Not Detected (Not Detect); Parainfluenza Virus 1 Not Detected (Not Detect); Parainfluenza Virus 2 Not Detected (Not Detect); Parainfluenza Virus 3 Not Detected (Not Detect); Parainfluenza Virus 4 Not Detected (Not Detect); Respiratory Syncytial Virus Not Detected (Not Detect)
[2018-03-19] MEDS: amLODIPine 5 MG TABLET PO SCH (20:47)
[2018-03-19] MEDS ORDERED: Insulin DETEMIR 100 UNIT/ML X5UNITS SQ SCH (21:00)
[2018-03-19] MEDS ORDERED: *HR* Metformin 500 MG TABLET PO SCH (21:00)
[2018-03-19] MEDS: Budesonide/Formoterol 160/4.5 MDI IH SCH (21:53)
[2018-03-20] MEDS: Ipratropium/Albuterol Neb 3 ML IH SCH ×4 (03:47→22:46)
[2018-03-20] MEDS: MethylPREDNISolone 40 MG/ML VIAL IVP SCH ×3 (05:41→23:02)
[2018-03-20] MEDS ORDERED: *HR* Enoxaparin 30 MG/0.3 ML SYRINGE SQ SCH (06:00)
[2018-03-20 06:12] LABS: BUN/Creatinine Ratio 29 (6-26); Blood Urea Nitrogen 25 mg/dL (8-23); Calcium 8.8 mg/dL (8.6-10.3); Carbon Dioxide 29 mEq/L (23-29); Chloride 102 mEq/L (98-107); Glucose 322 mg/dL (70-105); Osmolality,Calculated 303 (280-300); Potassium 4.2 mEq/L (3.5-5.1); Sodium 138 mEq/L (136-145); eGFR For African Americans > 60 (> 60); eGFR For Non-African Americans > 60 (> 60)
--- NOTE | 2018-03-20 06:23 | Electrocardiograph Report ---
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
[2018-03-20] MEDS ORDERED: Albuterol 2.5 MG/3 ML NEBULIZER IH PRN (07:12)
[2018-03-20 07:30] LABS: Estimated Average Glucose 255 mg/dl; Hemoglobin A1C 10.5 %
[2018-03-20] MEDS: *HR* Metformin 500 MG TABLET PO SCH ×2 (07:50→16:49)
[2018-03-20] MEDS: Insulin LISPRO 300 UNITS/3 ML VIAL SQ SCH ×7 (07:51→22:48)
[2018-03-20] MEDS ORDERED: (Tiotropium Bromide [Spiriva Respimat] 2 PUFF) IH SCH (09:00)
[2018-03-20] MEDS: Budesonide/Formoterol 160/4.5 MDI IH SCH ×2 (11:16→23:44)
[2018-03-20] MEDS: Insulin DETEMIR 100 UNIT/ML X5UNITS SQ SCH ×2 (12:04→22:47)
[2018-03-20] MEDS: Azithromycin 250 MG TABLET PO SCH (14:49)
--- NOTE | 2018-03-20 14:56 | Internal Med Progress Note ---
Date of Encounter: 03/20/18 Time of Encounter: 09:00 - Assessment and plan (1) COPD exacerbation Current Visit: Yes Status: Acute Assessment and plan: improving; taper down IV steroids as tolerated; continue bronchodilator nebs, supplemental O2, ICS and supportive care; on macrolide; RIP negative; (2) Acute on chronic respiratory failure with hypoxia and hypercapnia Current Visit: Yes Status: Acute Assessment and plan: due to COPD; improving; continue current management; (3) Non-small cell cancer of left lung Current Visit: Yes Status: Chronic Assessment and plan: s/p chemo-radiation; (4) Type 2 diabetes mellitus Current Visit: Yes Status: Chronic Assessment and plan: blood sugars improving but still higher than target; steroid-induced hyperglycemia; continue Accucheck blood glucose monitoring; increase basal insulin and continue SSI; Diabetic diet; HbA1C noted to be 10.5% s/o- uncontrolled DM; Qualifiers: Diabetes mellitus chcf insulin use: without chcf use Diabetes mellitus complication status: with hyperglycemia Qualified Code(s): E11.65 - Type 2 diabetes mellitus with hyperglycemia (5) RALPH (acute kidney injury) Current Visit: Yes Status: Resolved Assessment and plan: due to hyperglycemia and dehydration, improved with IV hydration and correction of sugars; (6) HTN (hypertension) Current Visit: Yes Status: Chronic Qualifiers: Hypertension type: essential hypertension Qualified Code(s): I10 - Essential (primary) hypertension (7) Hyperglycemia Current Visit: Yes Status: Acute Assessment and plan: improving; plan as above; - Time Spent With Patient Total time spent is greater than 50% in coordination of care (as documented) at patient's floor/unit and/or counseling patient: - Subjective Interval history: Feels better than yesterday with improving shortness of breath; no fever/chills , chest pain, cough, wheezing; she does have home O2 and recently got BiPAP and nebulizer; - Constitutional Vitals: Temp Pulse Resp BP Pulse Ox 97.8 F 83 16 126/74 95 03/20/18 11:34 03/20/18 11:34 03/20/18 11:34 03/20/18 11:34 03/20/18 11:34 General appearance: Present: A&O X 3, answers questions appropriately - Respiratory Respiratory exam: Present: decreased breath sounds (B/L decreased air entry), CTAB. Absent: accessory muscle use, rales, rhonchi, wheezes - Cardiovascular Cardiovascular exam: Present: RRR, +S1, +S2. Absent: diastolic murmur, gallop, rubs, systolic murmur - GI/Abdominal GI/Abdominal exam: Present: normal bowel sounds, soft, no peritoneal signs. Absent: distended, tenderness - Extremities Exam Extremities exam: Present: full ROM, warm, radial pulses palpable and symmetrical. Absent: calf tenderness, cyanotic, pedal edema Internal Medicine: Result - Labs CBC & Chem 7: 03/19/18 12:15 03/20/18 05:18 Labs: BMP 03/20/18 05:18 Sodium 138 Potassium 4.2 Chloride 102 Carbon Dioxide 29 BUN 25 H Creatinine 0.86 Glucose 322 H Calcium 8.8 - ABG Interpretation ABG results: PT/INR, D-dimer PT 10.6 Seconds (9.4-12.1) 03/19/18 12:15 Consult Discharge Plan - Plan Referrals: Gregg Cook DO [Primary Care Provider] - Prescriptions: Insulin Glargine [Lantus] 20 unit SQ HS 30 Days mls Syrge-Ndl,Ins 0.3 ml Half Vikram [Insulin Syringe] 1 each MC DAILY #30 disp.syrin
[2018-03-20] MEDS: amLODIPine 5 MG TABLET PO SCH (22:46)
[2018-03-21] MEDS: Ipratropium/Albuterol Neb 3 ML IH SCH ×4 (04:49→23:23)
[2018-03-21] MEDS: *HR* Enoxaparin 40 MG/0.4 ML SYRINGE SQ SCH (05:30)
[2018-03-21] MEDS: *HR* Metformin 500 MG TABLET PO SCH ×2 (08:04→16:19)
[2018-03-21] MEDS: Insulin DETEMIR 100 UNIT/ML X5UNITS SQ SCH ×3 (08:05→21:34)
[2018-03-21] MEDS: MethylPREDNISolone 40 MG/ML VIAL IVP SCH ×2 (08:05→14:26)
[2018-03-21] MEDS: Insulin LISPRO 300 UNITS/3 ML VIAL SQ SCH ×7 (08:06→21:36)
[2018-03-21] MEDS: Budesonide/Formoterol 160/4.5 MDI IH SCH ×2 (09:50→23:23)
--- NOTE | 2018-03-21 13:34 | Internal Med Progress Note ---
Date of Encounter: 03/21/18 Time of Encounter: 09:30 - Assessment and plan (1) COPD exacerbation Current Visit: Yes Status: Acute Assessment and plan: improving; taper down IV steroids as tolerated; continue bronchodilator nebs, supplemental O2, ICS and supportive care; on macrolide; RIP negative; (2) Acute on chronic respiratory failure with hypoxia and hypercapnia Current Visit: Yes Status: Acute Assessment and plan: due to COPD; improving; continue current management; (3) Non-small cell cancer of left lung Current Visit: Yes Status: Chronic Assessment and plan: s/p chemo-radiation; (4) Type 2 diabetes mellitus Current Visit: Yes Status: Chronic Assessment and plan: blood sugars improving but still higher than target, down to 200s today; steroid -induced hyperglycemia; continue Accucheck blood glucose monitoring; increase basal insulin and continue SSI; Diabetic diet; HbA1C noted to be 10.5% s/o- uncontrolled DM; Qualifiers: Diabetes mellitus snf insulin use: without snf use Diabetes mellitus complication status: with hyperglycemia Qualified Code(s): E11.65 - Type 2 diabetes mellitus with hyperglycemia (5) RALPH (acute kidney injury) Current Visit: Yes Status: Resolved (6) HTN (hypertension) Current Visit: Yes Status: Chronic Qualifiers: Hypertension type: essential hypertension Qualified Code(s): I10 - Essential (primary) hypertension (7) Hyperglycemia Current Visit: Yes Status: Acute - Time Spent With Patient Total time spent is greater than 50% in coordination of care (as documented) at patient's floor/unit and/or counseling patient: - Subjective Interval history: Noted to be short of breath after walking back from the restroom; reports she needs to be on 3L O2, now at 2L; no chest pain, cough, palpitations, dizziness or wheezing; - Constitutional Vitals: Temp Pulse Resp BP Pulse Ox 98.0 F 79 17 133/69 95 03/21/18 11:33 03/21/18 11:33 03/21/18 11:33 03/21/18 11:33 03/21/18 11:33 General appearance: Present: A&O X 3, answers questions appropriately - Respiratory Respiratory exam: Present: decreased breath sounds (decreased air entry B/L), CTAB. Absent: accessory muscle use, rales, rhonchi, wheezes - Cardiovascular Cardiovascular exam: Present: RRR, +S1, +S2. Absent: diastolic murmur, gallop, rubs, systolic murmur - GI/Abdominal GI/Abdominal exam: Present: normal bowel sounds, soft, no peritoneal signs. Absent: distended, tenderness - Extremities Exam Extremities exam: Present: full ROM, warm, radial pulses palpable and symmetrical. Absent: calf tenderness, cyanotic, pedal edema Internal Medicine: Result - Labs CBC & Chem 7: 03/19/18 12:15 03/20/18 05:18 - ABG Interpretation ABG results: PT/INR, D-dimer PT 10.6 Seconds (9.4-12.1) 03/19/18 12:15 Consult Discharge Plan - Plan Referrals: Gregg Cook DO [Primary Care Provider] - (web request sent on 03/21/18) Prescriptions: Insulin Glargine [Lantus] 20 unit SQ HS 30 Days mls Syrge-Ndl,Ins 0.3 ml Half Vikram [Insulin Syringe] 1 each MC DAILY #30 disp.syrin
[2018-03-21] MEDS: Azithromycin 250 MG TABLET PO SCH (14:26)
[2018-03-21] MEDS: amLODIPine 5 MG TABLET PO SCH (21:34)
[2018-03-22] MEDS: MethylPREDNISolone 40 MG/ML VIAL IVP SCH (01:30)
[2018-03-22] MEDS: Ipratropium/Albuterol Neb 3 ML IH SCH ×2 (04:21→09:52)
[2018-03-22] MEDS: *HR* Enoxaparin 40 MG/0.4 ML SYRINGE SQ SCH (05:14)
[2018-03-22 06:51] VITALS: BP 140/71
[2018-03-22] MEDS: Insulin LISPRO 300 UNITS/3 ML VIAL SQ SCH ×3 (09:07→12:27)
[2018-03-22] MEDS: Insulin DETEMIR 100 UNIT/ML X5UNITS SQ SCH (09:10)
[2018-03-22] MEDS: *HR* Metformin 500 MG TABLET PO SCH (09:11)
[2018-03-22] MEDS: Budesonide/Formoterol 160/4.5 MDI IH SCH (09:52)
--- NOTE | 2018-03-22 11:19 | Discharge Summary ---
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 Farr is a 68 year old female with the above medical problems who was admitted with shortness of breath and cough. She was noted to be in acute exacerbation of COPD, started on IV steroids, IV macrolide, breathing treatments and supplemental oxygen. Chest x-ray showed no evidence of pneumonia. Respiratory infection panel was negative. Patient was also noted to have significant hyperglycemia with hemoglobin A1c 10.6%. She was started on basal bolus subcutaneous insulin regimen with improvement in blood sugars to low 200s. She also had a complement of steroid- induced hyperglycemia. Nair check was completed for Lantus and patient is now being discharged on Lantus, encouraged to monitor blood sugars closely and follow up with PCP. She is otherwise medically stable for discharge. Discharge discussed with: patient, family, nurse - Time Spent with Patient Total time spent providing and/or coordinating discharge services: Greater than 30 minutes (50 min) - Discharge Medications Prescriptions: Azithromycin [Zithromax] 500 mg PO Q24H #4 tablet Insulin Glargine [Lantus] 20 unit SQ HS 30 Days mls predniSONE [PredniSONE] 40 mg PO DAILY #20 tablet Syrge-Ndl,Ins 0.3 ml Half Vikram [Insulin Syringe] 1 each MC DAILY #30 disp.syrin Home Medications: Atenolol [Tenormin] 50 mg PO BID 10/23/15 [History] Glimepiride [Amaryl] 2 mg PO BID 10/23/15 [History] Losartan Potassium [Cozaar] 50 mg PO DAILY 10/23/15 [History] hydroCHLOROthiazide [Hydrochlorothiazide] 25 mg PO DAILY 10/23/15 [History] Albuterol Sulfate [Proair Respiclick] 2 puff IH Q4H PRN 04/22/16 [History] Budesonide/Formoterol 160/4.5 [Symbicort 160/4.5] 2 puff IH BIDR 04/22/16 [ History] Theophylline Anhydrous [Mick-24] 100 mg PO DAILY 10/24/16 [History] metFORMIN [Glucophage] 500 mg PO BID 10/24/16 [History] Albuterol Neb [Proventil Neb] 2.5 mg IH TID PRN 03/19/18 [History] Oxygen 4 l NS DAILY 03/19/18 [History] Simvastatin [Zocor] 20 mg PO HS 03/19/18 [History] Tiotropium [place] [Spiriva Respimat] 2 puff IH DAILY 03/19/18 [History] Zolpidem [Ambien] 5 mg PO HS PRN 03/19/18 [History] Insulin Glargine [Lantus] 20 unit SQ HS 30 Days mls 03/20/18 [Rx] Syrge-Ndl,Ins 0.3 ml Half Vikram [Insulin Syringe] 1 each MC DAILY #30 disp.syrin 03/20/18 [Rx] Azithromycin [Zithromax] 500 mg PO Q24H #4 tablet 03/22/18 [Rx] predniSONE [PredniSONE] 40 mg PO DAILY #20 tablet 03/22/18 [Rx] Allergies/Adverse Reactions: 3 Allergy/AdvReac Type Severity Reaction Status Date / Time roflumilast [From Dalires] AdvReac Cramping Verified 02/16/18 12:54 of the Muscles Date of admission: 03/19/18 15:22 Primary care physician: Gregg Cook Discharging clinician: Tiana Siegel Anticipated date of discharge: 03/22/18 - Constitutional Vitals: Temp Pulse Resp BP Pulse Ox 98.0 F 72 18 140/71 96 03/22/18 06:46 03/22/18 10:37 03/22/18 10:37 03/22/18 06:46 03/22/18 09:54 General appearance: Present: A&O X 3, answers questions appropriately - Respiratory Respiratory exam: Present: CTAB (improving air entry). Absent: accessory muscle use, rales, rhonchi, wheezes - Cardiovascular Cardiovascular exam: Present: RRR, +S1, +S2. Absent: diastolic murmur, gallop, rubs, systolic murmur - Patient Status Disposition: Home Health Service Condition: Good Functional capacity at discharge: independent ambulation Overall status at discharge: patient is progressing back to baseline - Discharge Instructions Instructions: Diabetes Mellitus Type 2 in Adults (DC) Follow Up With: Gregg Cook DO [Primary Care Provider] - (web request sent on 03/21/18. If you do not hear from your PCP by Friday, Please call and make a follow up appointment in 5-7 days. Thank you!) Additional Instructions: F/up with PCP in 1-2 weeks - Diet and Activity Activity: wear oxygen at all times Diet: diabetic diet, low fat, low cholesterol, low salt diet
--- NOTE | 2018-03-22 11:35 | Physician Discharge Referral ---
Home Health/Hosp Referral Info Transfer to: Home Health Attending Provider: Tiana Siegel Provider in Charge Post Discharge: PCP - Diagnosis (1) COPD exacerbation Priority: Primary Status: Acute (2) Acute on chronic respiratory failure with hypoxia and hypercapnia Priority: Primary Status: Acute (3) Non-small cell cancer of left lung Priority: Secondary Status: Chronic (4) Type 2 diabetes mellitus Priority: Secondary Status: Chronic (5) RALPH (acute kidney injury) Priority: Primary Status: Resolved (6) HTN (hypertension) Priority: Secondary Status: Chronic (7) Hyperglycemia Priority: Primary Status: Acute - Respiratory Orders Oxygen / L per min (3L/min via NC) Smoking Cessation: Smoking cessation has been advised. For more information, call the [employer] Tobacco Quit Line at 3-392-ZLHY-NOW. - Diet/Nutrition Diet/Nutrition Orders: Cardiac, No Concentrated Sweets (diabetic) - Activity Activity Orders: Ambulate - Services Needed Following services are medically necessary services: Nursing - Transfer Medications Prescriptions: Azithromycin [Zithromax] 500 mg PO Q24H #4 tablet Insulin Glargine [Lantus] 20 unit SQ HS 30 Days mls predniSONE [PredniSONE] 40 mg PO DAILY #20 tablet Syrge-Ndl,Ins 0.3 ml Half Vikram [Insulin Syringe] 1 each MC DAILY #30 disp.syrin Home Medications: Atenolol [Tenormin] 50 mg PO BID 10/23/15 [History] Glimepiride [Amaryl] 2 mg PO BID 10/23/15 [History] Losartan Potassium [Cozaar] 50 mg PO DAILY 10/23/15 [History] hydroCHLOROthiazide [Hydrochlorothiazide] 25 mg PO DAILY 10/23/15 [History] Albuterol Sulfate [Proair Respiclick] 2 puff IH Q4H PRN 04/22/16 [History] Budesonide/Formoterol 160/4.5 [Symbicort 160/4.5] 2 puff IH BIDR 04/22/16 [ History] Theophylline Anhydrous [Mick-24] 100 mg PO DAILY 10/24/16 [History] metFORMIN [Glucophage] 500 mg PO BID 10/24/16 [History] Albuterol Neb [Proventil Neb] 2.5 mg IH TID PRN 03/19/18 [History] Oxygen 4 l NS DAILY 03/19/18 [History] Simvastatin [Zocor] 20 mg PO HS 03/19/18 [History] Tiotropium [place] [Spiriva Respimat] 2 puff IH DAILY 03/19/18 [History] Zolpidem [Ambien] 5 mg PO HS PRN 03/19/18 [History] Insulin Glargine [Lantus] 20 unit SQ HS 30 Days mls 03/20/18 [Rx] Syrge-Ndl,Ins 0.3 ml Half Vikram [Insulin Syringe] 1 each MC DAILY #30 disp.syrin 03/20/18 [Rx] Azithromycin [Zithromax] 500 mg PO Q24H #4 tablet 03/22/18 [Rx] predniSONE [PredniSONE] 40 mg PO DAILY #20 tablet 03/22/18 [Rx] Allergies/Adverse Reactions: 3 Allergy/AdvReac Type Severity Reaction Status Date / Time roflumilast [From Daliresp] AdvReac Cramping Verified 02/16/18 12:54 of the Muscles Certification: Further, I certify that my clinical findings support that this patient is homebound (i.e. absences from home require considerable and taxing effort and are for medical reasons or buddhist services or infrequently or short duration when for other reasons) because: Homebound Reason: Patient requires assistance of a person or device to safely leave home, Leaving home requires considerable and taxing effort due to condition, Severity of cardiac or pulmonary status limits activity tolerance Attestation: My signature below is to certify that this patient is under my care and that I, or nurse practitioner, or a physician's assistant research scientist working with me, has a face-to -face encounter with this patient.
[2018-03-23 10:05] LABS: Mycoplasma pneumoniae IgG 0.38 U/L (<=0.09)
== END 2018-03-22 13:31 | disposition home health service (06) | DRG 190 ==
LOC: 2ANU 11:41 → EMEROO 11:41 → SUATTDRO 15:22 → 2ANU 16:16
PROVIDERS: ADMIT Family Medicine; ATTEND Internal Medicine

== ENCOUNTER 2019-02-16 14:51 | Inpatient (IN) ==
[2019-02-16] MEDS ORDERED: Isovue-370 500 ML BOTTLE IVP ONE (15:14)
[2019-02-16] MEDS ORDERED: Ipratropium/Albuterol Neb 3 ML IH ONE ×3 (15:16→16:13)
--- NOTE | 2019-02-16 15:17 | Emergency Department Note ---
Disposition Clinical Impression: COPD exacerbation, Acute on chronic respiratory failure with hypoxia and hypercapnia, Swelling of lower extremity Dyspnea Qualifiers: Dyspnea type: unspecified Qualified Code(s): R06.00 - Dyspnea, unspecified Disposition: Admitted As Inpatient Condition: Fair General Adult HPI - General Chief complaint: ED Shortness of Breath/Dyspnea Stated complaint: TYLER Time Seen by Provider: 02/16/19 15:03 Source: patient, family Limitations: no limitations Nursing Notes Reviewed: Yes Vital Signs Reviewed: Yes - History of Present Illness HPI Narrative: Patient is a 68-year-old female with past medical history including adenocarcinoma of the lung status post chemotherapy, finished treatments a few years ago, COPD on 4-5 L of oxygen at home, hypertension, diabetes mellitus presenting with a chief complaint of dyspnea for 4-5 days. The patient complains of progressive worsening shortness of breath with exertion. She also complains of shortness of breath when she lays down or bends forward. She complains of bilateral lower extremity swelling which appear to be worse than usual. She denies a history of congestive heart failure, coronary artery disease and stent placements, history of blood clots. She denies recent travel or surgery, hemoptysis, hormone therapy, fevers or chills, productive cough, chest pain, abdominal pain, nausea or vomiting. She followed up with Dr. Vaughan, her pier runner today who recommends the patient come to the emergency department for further evaluation. Her oxygen saturation was initially 66%. He is concerned of decompensated heart failure versus pulmonary embolism. She has not needed to increase her oxygen use at home. Pain Scale: 0 - Related Data Home Medications Medication Instructions Recorded Confirmed Atenolol [Tenormin] 50 mg PO BID 10/23/15 02/16/19 Glimepiride [Amaryl] 2 mg PO BID 10/23/15 02/16/19 hydroCHLOROthiazide 25 mg PO DAILY 10/23/15 02/16/19 [Hydrochlorothiazide] Albuterol Sulfate [Proair 2 puff IH Q4H PRN 04/22/16 02/16/19 Respiclick] Budesonide/Formoterol 160/4.5 2 puff IH BIDR 04/22/16 02/16/19 [Symbicort 160/4.5] Theophylline Anhydrous [Mick-24] 100 mg PO DAILY 10/24/16 02/16/19 metFORMIN [Glucophage] 500 mg PO BID 10/24/16 02/16/19 Albuterol Neb [Proventil Neb] 2.5 mg IH TID PRN 03/19/18 02/16/19 Tiotropium [place] [Spiriva 2 puff IH DAILY 03/19/18 02/16/19 Respimat] Insulin Glargine [Lantus] 30 unit SQ HS 11/06/18 02/16/19 Olmesartan Medoxomil [Benicar] 20 mg PO DAILY 11/06/18 02/16/19 amLODIPine [Norvasc] 5 mg PO DAILY 02/16/19 02/16/19 Allergies Allergy/AdvReac Type Severity Reaction Status Date / Time roflumilast [From [facility]] AdvReac Cramping Verified 02/16/18 12:54 of the Muscles All systems ED: reviewed and negative except as stated. Review of Systems: As Per HPI Constitutional: Denies: fever, chills Cardiovascular: Reports: edema. Denies: chest pain, palpitations Respiratory: Reports: dyspnea. Denies: cough Gastrointestinal: Denies: abdominal pain, nausea, vomiting Genitourinary: Denies: dysuria Musculoskeletal: Denies: back pain Neurological: Denies: headache, weakness Past Medical History - Past Medical History Attestation: Yes The following information was validated with the patient. Source: patient Medical history: Reports: cancer, COPD, diabetes, hypertension, other Surgical history: Reports: cholecystectomy Psychiatric history: Reports: no psych history RADIOLOGIST PHYSICIAN history: Reports: no RADIOLOGIST PHYSICIAN history - Social History Smoking Status: Former smoker Smokeless Tobacco Status: No Alcohol use: Reports: none Drug use: Reports: none Physical Exam - General Limitations: no limitations General appearance: alert, in no apparent distress - Head Head exam: atraumatic, normocephalic - Eye Eye exam: Present: normal appearance, EOMI - ENT ENT exam: normal exam, mucous membranes moist - Neck Neck exam: Present: normal inspection, trachea midline - Chest Chest inspection: Present: normal inspection, symmetric chest wall rise - Respiratory Respiratory exam: Present: other (Tachypneic, conversational dyspnea, decreased breath sounds bilaterally without wheezing or rhonchi) - Cardiovascular Cardiovascular exam: Present: regular rate, normal rhythm, normal heart sounds, other (bilateral radial pulses equal) - Abdominal Exam Abdominal exam: Present: soft, Non-Tender. Absent: distention - Extremities Exam Extremities exam: Present: normal capillary refill, other (2+ pitting edema to mid calf). Absent: calf tenderness - Neurological Exam Neurological exam: Present: alert, oriented X3 - Psychiatric Psychiatric exam: Present: normal affect, normal mood - Skin Skin exam: Present: warm, dry. Absent: cyanosis, diaphoresis Course Vital Signs Temperature 98.3 F 02/16/19 14:58 Pulse Rate 71 02/16/19 14:58 Respiratory Rate 19 02/16/19 14:58 Blood Pressure 122/90 02/16/19 14:58 O2 Sat by Pulse Oximetry 97 02/16/19 14:58 Temperature 98.3 F 02/16/19 14:58 Pulse Rate 71 02/16/19 14:58 Respiratory Rate 25 02/16/19 16:31 Blood Pressure 122/90 02/16/19 14:58 O2 Sat by Pulse Oximetry 98 02/16/19 16:31 Oxygen Delivery Oxygen Delivery Nasal Cannula Medical Decision Making - [facility] Narrative Medical decision making narrative: Patient is presenting from her pulmonologists office with chief complaint of 4-5 day history of progressively worsening shortness of breath with exertion and while laying down. Patient is tachypneic, has conversational dyspnea. She is on 5 L of oxygen per nasal cannula at 94%. This is her home dose oxygen. She denies chest pain. EKG shows no acute ischemic changes. We will obtain CBC, BMP, troponin, BNP. There is a concern for acute heart failure, pulmonary hypertension, pulmonary embolism, COPD exacerbation, worsening cancer so we will obtain CTA chest to further evaluate. Unlikely infectious etiology as patient does not complain of cough, she is afebrile, nontoxic appearing. Upon review of Dr. Vaughan's visit note, the patient was hypoxic at 66%. 16:00 Upon re-evaluation, the patient appears to have worsening conversational dyspnea. She states she is tired. We are going to try BiPAP at this time. Respiratory has been called and notified. Also give her Solu-Medrol and another DuoNeb treatment for possible COPD exacerbation and she has history of severe COPD. Obtained a VBG as the patient refused an ABG. 17:35 The patient is tolerating BiPAP. When she is off BiPAP she still has conversational dyspnea. CT chest reviewed and shows no pulmonary embolism, no acute abnormality. She does have redemonstration of multiple spiculated obesity that is scarring versus neoplasm. Dr. Vaughan, Pulmonology has been paged to update him. She will require admission for COPD exacerbation. There appears to be a component of fluid overload. His VBG shows pH 7.2. Patient has hypercapnic respiratory failure. 17:[address] Vaughan. He states the patient dropped to 66% during ambulation. She may need diuresis and possible echocardiogram. Hospitalist paged for admission. She remains stable on Bipap 18:[address] Bianchi, hospitalist, who accepts admission. - Medical Records Medical records reviewed: Yes I reviewed the patient's medical records. - Lab Data Lab results reviewed: Yes I reviewed the patient's lab results. Result diagrams: 02/16/19 15:00 02/16/19 15:00 Lab Results 02/16/19 02/16/19 02/16/19 Range/Units 15:00 15:00 15:00 WBC 7.5 (4.3-11.1) K/mcL RBC 4.38 (3.82-4.97) M/mcL Hgb 11.9 (11.5-15.4) g/dL Hct 40.2 (35.3-44.9) % MCV 91.8 (83.0-100.0) fL MCH 27.2 L (28.0-33.3) pg MCHC 29.6 L (31.6-35.5) g/dL RDW 14.5 (11.5-14.5) % Plt Count 162 (140-400) K/mcL MPV 10.6 (9.4-12.4) fL Immature Gran % 0.7 (0-4) % Seg Neutrophils % 81.6 % Lymphocytes % 10.0 % Monocytes % 6.5 % Eosinophils % 0.9 % Basophils % 0.3 % Neutrophils # 6.2 (1.6-8.9) K/mcL Lymphocytes # 0.8 (0.6-4.6) K/mcL Monocytes # 0.5 (0.0-1.3) K/mcL Eosinophils # 0.1 (0.0-0.6) K/mcL Basophils # 0.0 (0.0-0.2) K/mcL VBG pH (7.32-7.42) pH Units VBG pCO2 (41-51) mmHg VBG pO2 (25-50) mmHg VBG HCO3 (21-27) mEq/L Sodium 137 (136-145) mEq/L Potassium 4.3 (3.5-5.1) mEq/L Chloride 94 L (98-107) mEq/L Carbon Dioxide 36 H (23-29) mEq/L BUN 34 H (8-23) mg/dL Creatinine 1.14 (0.60-1.20) mg/dL Est GFR ( Amer) 57 L (> 60) Est GFR (Non-Af Amer) 47 L (> 60) BUN/Creatinine Ratio 30 H (6-26) Glucose 451 H (70-105) mg/dL Calculated Osmolality 311 H (280-300) Calcium 10.0 (8.6-10.3) mg/dL Troponin I < 0.03 (< 0.04) ng/mL B-Natriuretic Peptide 29 (Less than 100) pg/mL [facility] 02/16/19 Range/Units 17:20 WBC (4.3-11.1) K/mcL RBC (3.82-4.97) M/mcL Hgb (11.5-15.4) g/dL Hct (35.3-44.9) % MCV (83.0-100.0) fL MCH (28.0-33.3) pg MCHC (31.6-35.5) g/dL RDW (11.5-14.5) % Plt Count (140-400) K/mcL MPV (9.4-12.4) fL Immature Gran % (0-4) % Seg Neutrophils % % Lymphocytes % % Monocytes % % Eosinophils % % Basophils % % Neutrophils # (1.6-8.9) K/mcL Lymphocytes # (0.6-4.6) K/mcL Monocytes # (0.0-1.3) K/mcL Eosinophils # (0.0-0.6) K/mcL Basophils # (0.0-0.2) K/mcL VBG pH 7.29 L (7.32-7.42) pH Units VBG pCO2 79 H* (41-51) mmHg VBG pO2 52 H (25-50) mmHg VBG HCO3 38 H (21-27) mEq/L Sodium (136-145) mEq/L Potassium (3.5-5.1) mEq/L Chloride (98-107) mEq/L Carbon Dioxide (23-29) mEq/L BUN (8-23) mg/dL Creatinine (0.60-1.20) mg/dL Est GFR ( Amer) (> 60) Est GFR (Non-Af Amer) (> 60) BUN/Creatinine Ratio (6-26) Glucose (70-105) mg/dL Calculated Osmolality (280-300) Calcium (8.6-10.3) mg/dL Troponin I (< 0.04) ng/mL B-Natriuretic Peptide (Less than 100) pg/mL Person Notif of [facility] - Radiology Data Radiology results reviewed: Yes I reviewed the patient's radiology results. Chest CTA 02/16/19 15:14 IMPRESSION: No evidence of pulmonary embolism or aortic dissection. Overall, no acute abnormality identified. Redemonstration of multiple spiculated opacities within the medial aspect of the right upper lobe, the left upper lobe, and within the right middle lobe, representing some combination of scarring and/or neoplasm. Interval resolution of the right lower lobe consolidation. Interval resolution of mediastinal lymphadenopathy. D/ / Moo Mcqueen MD / Moo Mcqueen MD Interpreting Provider: Moo Mcqueen MD - EKG Data EKG #1 EKG attestation: Yes I reviewed and interpreted this EKG. EKG results narrative: EKG obtained at 1501 shows sinus rhythm with heart rate 74, MD interval 131, QRS duration 83, QTC 428. No ST elevation or depression. There is p wave depression in multiple leads . Compared to old EKG on 03/19/2018 which at that time showed sinus tachycardia. Attestation Statement - Attestation Attestation: Resident Attestation: I examined this patient and my medical decision making was reviewed with the Resident Physician. I agree with the documented findings, disposition and treatment plan as described except to the extent set forth below. We independently had [id number] contact with the patient. Patient with significant history of COPD. Previously treated for lung cancer. Follows with pulmonology. Patient was found to be significantly hypoxic appointment. Patient referred to ED for further evaluation of CHF versus COPD versus PE. Patient with mild conversational dyspnea. Patient has significantly decreased breath sounds throughout. Patient will be placed on BiPAP or CPAP treatments and steroids and as well as investigation of PE versus pneumonia versus CHF. Disposition pending.
[2019-02-16 15:24] LABS: Basophils % 0.3 %; Eosinophils # 0.1 K/mcL (0.0-0.6); Eosinophils % 0.9 %; Hematocrit 40.2 % (35.3-44.9); Hemoglobin 11.9 g/dL (11.5-15.4); Immature Granulocytes % 0.7 % (0-4); Lymphocytes # 0.8 K/mcL (0.6-4.6); Mean Corpuscular HGB Conc 29.6 g/dL (31.6-35.5); Mean Corpuscular Hemoglobin 27.2 pg (28.0-33.3); Mean Corpuscular Volume 91.8 fL (83.0-100.0); Mean Platelet Volume 10.6 fL (9.4-12.4); Monocytes # 0.5 K/mcL (0.0-1.3); Monocytes % 6.5 %; Neutrophils # 6.2 K/mcL (1.6-8.9); Platelet Count 162 K/mcL (140-400); Red Blood Count 4.38 M/mcL (3.82-4.97); Red Cell Distribution Width 14.5 % (11.5-14.5); Segmented Neutrophils % 81.6 %
[2019-02-16 15:45] LABS: BUN/Creatinine Ratio 30 (6-26); Blood Urea Nitrogen 34 mg/dL (8-23); Carbon Dioxide 36 mEq/L (23-29); Chloride 94 mEq/L (98-107); Glucose 451 mg/dL (70-105); Osmolality,Calculated 311 (280-300); Potassium 4.3 mEq/L (3.5-5.1); Sodium 137 mEq/L (136-145); eGFR For Non-African Americans 47 (> 60)
[2019-02-16 15:47] LABS: Troponin I < 0.03 ng/mL (< 0.04)
[2019-02-16] MEDS ORDERED: 0.9 % Sodium Chloride 500 ML IVC ONE (16:05)
[2019-02-16] MEDS ORDERED: methylPREDNISolone 125 MG/2 ML VIAL IVP ONE (16:12)
[2019-02-16 17:32] LABS: VBG HCO3 38 mEq/L (21-27); VBG PCO2 79 mmHg (41-51); VBG PH 7.29 pH Units (7.32-7.42); VBG PO2 52 mmHg (25-50)
[2019-02-16] MEDS ORDERED: Naloxone 0.4 MG/ML INJ IVP PRN (21:56)
--- NOTE | 2019-02-16 22:17 | Internal Med History&Physical ---
<Yvette Taylor E - Last Filed: 02/16/19 22:56> Date of Encounter: 02/16/19 Time of Encounter: 09:45 Internal Medicine - H&P: HPI Chief complaint: increasing dyspnea History of present illness: Ms. Farr is a 68 year old female with past medical history of COPD on home oxygen of 4-5L continuous, HTN, DM, adenocarcinoma of the lung last chemotherapy 5 years ago. Patient had an office visit with Dr. Smith this morning where she was desatting into the mid 60's with ambulation. She was sent to the ED for further workup. Patient states for the last week she has noticed she is getting more and more short of breath with exertion to the point of needing to use her rescue inhaler upon standing. She states bending over, laying flat, and standing up make her dyspnea worse. She has also noted that if she is having a conversation she gets winded. She denies any cough, congestion, sputum production, fever, chills, nausea, vomiting, diarrhea. She also denies chest pain, lightheadedness, dizziness, history of CHF. Patient does state she is s upposed to use a bipap at home but has not been using it due to the mask not being comfortable. She also states she has been having more swelling in her legs, left more than right to usual for her, she states that her swelling was worse this morning and is now on has decrease she has been able to lie in bed. CT/CT angio chest IMPRESSION:No evidence of pulmonary embolism or aortic dissection. Overall, no acute abnormality identified.Redemonstration of multiple spiculated opacities within the medial aspect of the right upper lobe, the left upper lobe, and within the right middle lobe, representing some combination of scarring and/or neoplasm. Interval resolution of the right lower lobe consolidation. Interval resolution of mediastinal lymphadenopathy. EKG: sinus rhythm with heart rate 74, MA interval 131, QRS duration 83, QTC 428. No ST elevation or depression. There is p wave depression in multiple leads Social history: patient denies alcohol use, tobacco use, illicit drugs Family History: Mother: DM, CVA, heart disease FAther: liver ca, [place] Twin sister: DM, kidney disease Sister 2: liver ca Past Med Surg Social Fam HX - Past Medical History Medical history: cancer, COPD, diabetes, hypertension, other Psychiatric history: no psych history - Past Surgical History Surgical History: cholecystectomy - Social History Smoking Status: Former smoker Smokeless Tobacco Status: No Alcohol use: none Drug use: none - Family History Father Living Status: Mother Living Status: Internal Medicine - H&P: Meds Atenolol [Tenormin] 50 mg PO BID 10/23/15 [History] Glimepiride [Amaryl] 2 mg PO BID 10/23/15 [History] hydroCHLOROthiazide [Hydrochlorothiazide] 25 mg PO DAILY 10/23/15 [History] Albuterol Sulfate [Proair Respiclick] 2 puff IH Q4H PRN 04/22/16 [History] Budesonide/Formoterol 160/4.5 [Symbicort 160/4.5] 2 puff IH BIDR 04/22/16 [History] Theophylline Anhydrous [Mick-24] 100 mg PO DAILY 10/24/16 [History] metFORMIN [Glucophage] 500 mg PO BID 10/24/16 [History] Albuterol Neb [Proventil Neb] 2.5 mg IH TID PRN 03/19/18 [History] Tiotropium [place] [Spiriva Respimat] 2 puff IH DAILY 03/19/18 [History] Insulin Glargine [Lantus] 30 unit SQ HS 11/06/18 [History] Olmesartan Medoxomil [Benicar] 20 mg PO DAILY 11/06/18 [History] amLODIPine [Norvasc] 5 mg PO DAILY 02/16/19 [History] Allergy/AdvReac Type Severity Reaction Status Date / Time roflumilast [From [facility]] AdvReac Cramping Verified 02/16/18 12:54 of the Muscles All Systems PM: A 10-system review of systems was performed and is negative for pertinent findings except as documented above in the HPI. - Constitutional Constitutional: no chills, no fever(s), no weakness, no weight gain, no weight loss - EENT Eyes: no blurry vision, no change in vision Ears: no decreased hearing Nose, mouth and throat: no nasal congestion, no nasal discharge, no sinus pain, no sinus pressure - Cardiovascular Cardiovascular ROS IM: dyspnea, dyspnea on exertion, edema (Worse earlier today for now), no chest pain, no irregular heart rhythm, no palpitations, no syncope - Respiratory Respiratory: dyspnea, dyspnea on exertion, no cough, no chest congestion, no excessive phlegm production - Gastrointestinal Gastrointestinal: no change in bowel habits, no constipation, no diarrhea, no nausea, no vomiting - Genitourinary Genitourinary: no urinary frequency, no urinary hesitancy, no urinary incontinence, no urinary urgency - Musculoskeletal Musculoskeletal ROS IM: no arthralgias, no joint swelling - Integumentary Integumentary IM: no new lesions, no rash - Neurological Neurological ROS: no confusion, no disequilibrium, no dizziness, no focal weakness - Constitutional Vitals: Temp Pulse Resp BP Pulse Ox 98.3 F 82 18 137/55 96 02/16/19 14:58 02/16/19 21:02 02/16/19 21:02 02/16/19 21:02 02/16/19 21:02 Exam: General: AAO 3, mild distress, answers questions appropriately Head: normocephalic, atraumatic Eyes: FELIPE, no icterus Mouth: Mucous membranes moist Neck: Trachea midline, no lymphadenopathy Cardio: RRR, no mumurs, rubs, or gallops Respiratory: Diminished bilateral lower lobes, dyspnea on conversation, no wheezing, rhonchi, rales Abd: normal bowel sounds, no gaurding or rigidity Extremties: 1+ pitting edema bilateral lower extremities, left slightly larger than right, pulses equal bilaterally, warm Skin: warm, dry, intact Internal Med - H&P Results - Labs CBC & Chem 7: 02/16/19 15:00 02/16/19 15:00 Labs: Short CBC 02/16/19 Range/Units 15:00 WBC 7.5 (4.3-11.1) K/mcL Hgb 11.9 (11.5-15.4) g/dL Hct 40.2 (35.3-44.9) % Plt Count 162 (140-400) K/mcL Neutrophils # 6.2 (1.6-8.9) K/mcL BMP 02/16/19 15:00 Sodium 137 Potassium 4.3 Chloride 94 L Carbon Dioxide 36 H BUN 34 H Creatinine 1.14 Glucose 451 H Calcium 10.0 Cardiac Enzymes 02/16/19 Range/Units 15:00 Troponin I < 0.03 (< 0.04) ng/mL - ABG Interpretation ABG results: 02/16/19 17:20 VBG pH 7.29 L VBG pCO2 79 H* VBG pO2 52 H VBG HCO3 38 H - Impressions ITS Impressions Chest CTA 02/16/19 15:14 IMPRESSION: No evidence of pulmonary embolism or aortic dissection. Overall, no acute abnormality identified. Redemonstration of multiple spiculated opacities within the medial aspect of the right upper lobe, the left upper lobe, and within the right middle lobe, representing some combination of scarring and/or neoplasm. Interval resolution of the right lower lobe consolidation. Interval resolution of mediastinal lymphadenopathy. D/ / Moo Mcqueen MD / Moo Mcqueen MD Interpreting Provider: Moo Mcqueen MD - Assessment and Plan (1) Dyspnea Current Visit: Yes Status: Acute Assessment and plan: Patient has increased dyspnea on exertion as well as positional dyspnea with standing from a seated position and lying flat Patient states has been getting worse over the last week Patient was started on BiPAP in the ED as well as given duo nebs and Solu-Medrol COPD exacerbation versus CHF CTA negative for PE EKG negative for ischemic changes Treatment as per following Qualifiers: Dyspnea type: dyspnea on exertion Qualified Code(s): R06.09 - Other forms of dyspnea (2) Acute congestive heart failure Current Visit: Yes Status: Suspected Assessment and plan: Likely due to positional dyspnea as well as increased swelling of lower extremities Echocardiogram ordered Patient's BNP 29 on admission Troponins negative We will consider Lasix use if patient presents is fluid overloaded, but will hold at this time due to clinical exam showing no rails and only 1+ pitting edema in lower extremities Qualifiers: Heart failure type: unspecified Qualified Code(s): I50.9 - Heart failure, unspecified (3) COPD exacerbation Current Visit: Yes Status: Suspected Assessment and plan: Patient denies any cough, fever, chills but has had increased dyspnea over the last week Patient was given Solu-Medrol and DuoNeb treatment in the ED and started on BiPAP which helped her dyspnea We will continue DuoNeb treatments We will switch to 40 mg by mouth in his own daily When necessary albuterol Start azithromycin Respiratory therapy has been consulted (4) Type 2 diabetes mellitus Current Visit: No Status: Chronic Assessment and plan: Patient has known history of insulin-dependent diabetes Patient will be started on a sliding scale insulin low-dose Continue to monitor it Accu-Cheks before meals at bedtime Diabetic diet Adjust insulin dosage as needed Qualifiers: Diabetes mellitus fci insulin use: without fci use Diabetes mellitus complication status: with hyperglycemia Qualified Code(s): E11.65 - Type 2 diabetes mellitus with hyperglycemia (5) HTN (hypertension) Current Visit: No Status: Chronic Assessment and plan: Patient currently on hydrochlorothiazide, amlodipine, atenolol at home We will hold all but her Norvasc at this time Reintroduce home medications as needed for blood pressure management Qualifiers: Hypertension type: essential hypertension Qualified Code(s): I10 - Essen tial (primary) hypertension (6) DVT (deep venous thrombosis) Current Visit: Yes Status: Suspected Assessment and plan: Patient states that her left leg always swells more than her right Negative Homans sign No pain on palpation to bilateral lower extremities Due to left leg swelling greater than right we will get bilateral ultrasound of the lower extremities to rule out DVTs CTA on admission was negative for PE Qualifiers: DVT location: lower extremity Affected thrombotic vein of extremity: unspecified vein of extremity Chronicity: unspecified Laterality: bilateral Qualified Code(s): I82.403 - Acute embolism and thrombosis of unspecified deep veins of lower extremity, bilateral (7) DVT prophylaxis Current Visit: No Status: Acute Assessment and plan: Subcutaneous heparin - Time Spent With Patient Total time spent is greater than 50% in coordination of care (as documented) at patient's floor/unit and/or counseling patient: <Sharad Lagunas - Last Filed: 02/17/19 04:06> Date of Encounter: 02/17/19 Internal Medicine - H&P: HPI History of present illness: Ms. Farr is a 68 year old female All Systems PM: A 10-system review of systems was performed and is negative for pertinent findings except as documented above in the HPI. - Constitutional Vitals: Temp Pulse Resp BP Pulse Ox 97.4 F L 82 19 143/93 99 02/17/19 03:58 02/17/19 03:58 02/17/19 03:58 02/17/19 03:58 02/17/19 03:58 Internal Med - H&P Results - Labs CBC & Chem 7: 02/16/19 15:00 02/16/19 15:00 Labs: Short CBC 02/16/19 Range/Units 15:00 WBC 7.5 (4.3-11.1) K/mcL Hgb 11.9 (11.5-15.4) g/dL Hct 40.2 (35.3-44.9) % Plt Count 162 (140-400) K/mcL Neutrophils # 6.2 (1.6-8.9) K/mcL BMP 02/16/19 15:00 Sodium 137 Potassium 4.3 Chloride 94 L Carbon Dioxide 36 H BUN 34 H Creatinine 1.14 Glucose 451 H Calcium 10.0 Cardiac Enzymes 02/16/19 Range/Units 15:00 Troponin I < 0.03 (< 0.04) ng/mL - ABG Interpretation ABG results: 02/16/19 17:20 VBG pH 7.29 L VBG pCO2 79 H* VBG pO2 52 H VBG HCO3 38 H - Impressions ITS Impressions Chest CTA 02/16/19 15:14 IMPRESSION: No evidence of pulmonary embolism or aortic dissection. Overall, no acute abnormality identified. Redemonstration of multiple spiculated opacities within the medial aspect of the right upper lobe, the left upper lobe, and within the right middle lobe, representing some combination of scarring and/or neoplasm. Interval resolution of the right lower lobe consolidation. Interval resolution of mediastinal lymphadenopathy. D/ / Moo Mcqueen MD / Moo Mcqueen MD Interpreting Provider: Moo Mcqueen MD - Time Spent With Patient Total time spent is greater than 50% in coordination of care (as documented) at patient's floor/unit and/or counseling patient: - Attending Attestation I saw and evaluated the patient. I reviewed the residents note, performed my own physical examination and agree with findings and plan as documented in the residents note. Patient seen and examined on 02/17/19. Patient presented to ER with shortness of breath, now improved with BiPAP use and breathing treatments. CTA negative for PE, patient has chronic swelling on left lower extremity greater than right. We will obtain ultrasound to rule out DVT. Will also obtain new echocardiogram in the morning, last echo from 2017: Impressions: LVEF 50-55%, not all segments will visualized Mild pulmonary hypertension. No significant valvular dysfunction. Patient has CPAP machine at home but does not use it due to discomfort. Continue to monitor oxygen saturation.
[2019-02-16] MEDS ORDERED: Dextrose Gel 15 GM/37.5 ML TUBE PO PRN ×2 (22:47)
[2019-02-16] MEDS ORDERED: Albuterol 2.5 MG/3 ML NEBULIZER IH PRN (22:47)
[2019-02-16] MEDS ORDERED: D5% in Water 1,000 ML IVC PRN (22:47)
[2019-02-16] MEDS ORDERED: *HR* Dextrose 50 % in Water (Syg) 50 ML SYRINGE IVP PRN (22:47)
[2019-02-16] MEDS: Ipratropium/Albuterol Neb 3 ML IH SCH (23:44)
[2019-02-17] MEDS: Azithromycin 500 MG in D5% in Water 250 ML IVPB SCH ×2 (00:42→23:46)
[2019-02-17] MEDS: Ipratropium/Albuterol Neb 3 ML IH SCH ×4 (04:22→23:06)
[2019-02-17] MEDS: *HR* Heparin 5,000 UNIT/ML VIAL SQ SCH ×2 (05:47→18:53)
[2019-02-17 07:37] LABS: Basophils % 0.2 %; Hematocrit 37.6 % (35.3-44.9); Hemoglobin 11.3 g/dL (11.5-15.4); Immature Granulocytes % 0.6 % (0-4); Lymphocytes # 0.4 K/mcL (0.6-4.6); Lymphocytes % 6.6 %; Mean Corpuscular HGB Conc 30.1 g/dL (31.6-35.5); Mean Corpuscular Hemoglobin 27.3 pg (28.0-33.3); Mean Corpuscular Volume 90.8 fL (83.0-100.0); Mean Platelet Volume 10.8 fL (9.4-12.4); Monocytes # 0.1 K/mcL (0.0-1.3); Monocytes % 0.8 %; Platelet Count 156 K/mcL (140-400); Red Blood Count 4.14 M/mcL (3.82-4.97); Red Cell Distribution Width 14.4 % (11.5-14.5); Segmented Neutrophils % 91.8 %
[2019-02-17 07:55] LABS: Alanine Aminotransferase 22 Units/L (7-52); Albumin 4.1 g/dL (3.5-5.7); Albumin/Globulin Ratio 1.3 (1.1-2.2); Alkaline Phosphatase 71 Units/L (34-104); Aspartate Amino Transferase 15 Units/L (13-39); BUN/Creatinine Ratio 35 (6-26); Bilirubin,Total 0.4 mg/dL (0.3-1.0); Blood Urea Nitrogen 35 mg/dL (8-23); Carbon Dioxide 35 mEq/L (23-29); Chloride 91 mEq/L (98-107); Globulin 3.1 g/dL (2.4-3.5); Glucose 472 mg/dL (70-105); Magnesium 1.6 mg/dL (1.6-2.6); Osmolality,Calculated 311 (280-300); Phosphorous 3.5 mg/dL (2.7-4.5); Potassium 4.3 mEq/L (3.5-5.1); Sodium 136 mEq/L (136-145); Total Protein 7.2 g/dL (6.4-8.9); eGFR For Non-African Americans 55 (> 60)
--- NOTE | 2019-02-17 08:31 | Internal Med Progress Note ---
Hospitalist Progress Note - Encounter Date of Encounter: 02/17/19 Time of Encounter: 08:20 - Subjective Interval History: Patient seen and examined this morning at bedside. No acute overnight events. Breathing improved. Denies any chest pain abdominal pain nausea vomiting diarrhea or the urinary complaints. - Exam Vitals: Temp Pulse Resp BP Pulse Ox 98.9 F 85 18 140/71 94 02/17/19 07:13 02/17/19 07:13 02/17/19 07:13 02/17/19 07:13 02/17/19 07:13 Exam: General: In no acute distress. Respiratory exam: no accessory muscle use. crackles at b/l base and mid lungs. Cardiovascular exam: RRR, +S1, +S2. no murmur, gallop, rubs. GI/Abdominal exam: Non-tender, Non-distended, normal bowel sounds, soft, no peritoneal signs. Extremities exam: 1+ pedal edema b/l, pulses palpable in b/l lower extremities. no calf tenderness Neurological exam: CN II-XII intact, AO X3, no focal deficits. Skin exam: No skin rash - Summary of Assessment and Plan Summary of Assessment and Plan: Assessment Dyspnea COPD exacerbatioin. Hypertension Diabetes Adenocarcinoma of lung Plan - CTA negative for PE. - Patient has CPAP at home but not use . - EF of 50-55 on 04/21/17. Mild pulmonary hypertension. Follow-up echo and DVT study for lt leg swelling - BNP 29. Troponins negative. EKG without ischemic changes. - c/w duonebs, po steroids and azithromycin - Insulin-dependent diabetes. Uncontrolled blood sugar this morning. Likely from steroids. Start patient on Levemir 10 twice a day - BP meds held except amlodipine. BP slightly elevated. Start atenolol. will hold hctz. - Subcutaneous heparin for dvt ppx. - Time Spent with Patient Total time spent is greater than 50% in coordination of care (as documented) at patient's floor/unit and/or counseling patient: Internal Medicine: Result - Labs CBC & Chem 7: 02/17/19 06:29 02/17/19 06:29 Labs: Short CBC 02/16/19 02/17/19 Range/Units 15:00 06:29 WBC 7.5 6.5 (4.3-11.1) K/mcL Hgb 11.9 11.3 L (11.5-15.4) g/dL Hct 40.2 37.6 (35.3-44.9) % Plt Count 162 156 (140-400) K/mcL Neutrophils # 6.2 6.0 (1.6-8.9) K/mcL BMP 02/16/19 02/17/19 15:00 06:29 Sodium 137 136 Potassium 4.3 4.3 Chloride 94 L 91 L Carbon Dioxide 36 H 35 H BUN 34 H 35 H Creatinine 1.14 1.00 Glucose 451 H 472 H Calcium 10.0 10.0 Cardiac Enzymes 02/16/19 Range/Units 15:00 Troponin I < 0.03 (< 0.04) ng/mL Liver Function 02/17/19 Range/Units 06:29 Total Bilirubin 0.4 (0.3-1.0) mg/dL AST 15 (13-39) Units/L ALT 22 (7-52) Units/L Alkaline Phosphatase 71 (34-104) Units/L Albumin 4.1 (3.5-5.7) g/dL - Impressions Impressions Chest CTA 02/16/19 15:14 IMPRESSION: No evidence of pulmonary embolism or aortic dissection. Overall, no acute abnormality identified. Redemonstration of multiple spiculated opacities within the medial aspect of the right upper lobe, the left upper lobe, and within the right middle lobe, representing some combination of scarring and/or neoplasm. Interval resolution of the right lower lobe consolidation. Interval resolution of mediastinal lymphadenopathy. D/ / Moo Mcqueen MD / Moo Mcqueen MD Interpreting Provider: Moo Mcqueen MD Consult Discharge Plan - Plan Referrals: Gregg Cook DO [Primary Care Provider] -
[2019-02-17] MEDS ORDERED: Insulin DETEMIR 100 UNIT/ML X5UNITS SQ SCH (09:00)
[2019-02-17] MEDS: predniSONE 20 MG TABLET PO SCH (10:12)
[2019-02-17] MEDS: amLODIPine 5 MG TABLET PO SCH (10:12)
[2019-02-17] MEDS: Insulin LISPRO 300 UNITS/3 ML VIAL SQ SCH ×2 (10:14→14:55)
--- NOTE | 2019-02-17 10:16 | Electrocardiograph Report ---
[address] [address] Test Date: 2019-02-16 Pat Name: Sarah Farr Department: EXAM19 Room: 2N4 Gender: F Flue Blower: : 1950 Requested By: Najma Sanchez Order Number: [id number] Reading MD: Jefry Mcclellan Measurements Intervals [place] Rate: 74 P: 70 SD: 131 QRS: 59 QRSD: 83 T: 79 QT: 385 QTc: 428 Interpretive Statements Sinus rhythm Electronically Signed On 02-17-2019 10:15:24 EDT by Jefry Mcclellan
[2019-02-17] MEDS ORDERED: Insulin Human Regular 100 UNIT in 0.9 % Sodium Chloride 100 ML IVC SCH (20:00)
[2019-02-17] MEDS ORDERED: Insulin LISPRO 300 UNITS/3 ML VIAL SQ SCH (21:00)
[2019-02-18] MEDS: Ipratropium/Albuterol Neb 3 ML IH SCH ×4 (04:24→22:31)
[2019-02-18] MEDS: *HR* Heparin 5,000 UNIT/ML VIAL SQ SCH ×2 (05:05→17:15)
[2019-02-18] MEDS ORDERED: Dextrose Gel 15 GM/37.5 ML TUBE PO PRN ×4 (07:22→16:19)
[2019-02-18 08:24] LABS: Calcium 9.7 mg/dL (8.6-10.3); Potassium 3.7 mEq/L (3.5-5.1)
[2019-02-18] MEDS ORDERED: Insulin DETEMIR 100 UNIT/ML X5UNITS SQ SCH (09:00)
[2019-02-18] MEDS: Insulin LISPRO 300 UNITS/3 ML VIAL SQ SCH ×4 (09:27→17:10)
[2019-02-18] MEDS: amLODIPine 5 MG TABLET PO SCH (09:27)
[2019-02-18] MEDS: predniSONE 20 MG TABLET PO SCH (09:27)
[2019-02-18] MEDS ORDERED: D5% in Water 1,000 ML IVC PRN (16:19)
[2019-02-18] MEDS ORDERED: *HR* Dextrose 50 % in Water (Syg) 50 ML SYRINGE IVP PRN (16:19)
[2019-02-18] MEDS: Insulin DETEMIR 100 UNIT/ML X5UNITS SQ SCH (20:45)
[2019-02-18] MEDS ORDERED: Insulin LISPRO 300 UNITS/3 ML VIAL SQ SCH ×2 (21:00)
--- NOTE | 2019-02-18 21:00 | Internal Med Progress Note ---
Hospitalist Progress Note - Encounter Date of Encounter: 02/18/19 Time of Encounter: 10:23 - Subjective Interval History: Patient seen and examined this morning. No overnight events. Feels breathing has improve and want to go home. Denies new complains. - Exam Vitals: Temp Pulse Resp BP Pulse Ox 97.9 F 94 18 156/89 94 02/18/19 20:33 02/18/19 20:33 02/18/19 20:33 02/18/19 20:33 02/18/19 20:33 Exam: General: In no acute distress. Respiratory exam: no accessory muscle use. crackles at b/l base. Decreased b/l air entry Cardiovascular exam: RRR, +S1, +S2. no murmur, gallop, rubs. GI/Abdominal exam: Non-tender, Non-distended, normal bowel sounds, soft, no peritoneal signs. Extremities exam: 1+ pedal edema b/l, pulses palpable in b/l lower extremities. no calf tenderness Neurological exam: CN II-XII intact, AO X3, no focal deficits. Skin exam: No skin rash - Summary of Assessment and Plan Summary of Assessment and Plan: Assessment Dyspnea COPD exacerbatioin Hypertension Diabetes Adenocarcinoma of lung Plan - CTA negative for PE. - Patient has CPAP at home but does not use it. keep on cpap at night - EF of 50-55 on 04/21/17. Mild pulmonary hypertension. Follow-up echo with EF 60%, mil LV DD. DVT study negative - BNP 29. Troponins negative. EKG without ischemic changes. - c/w duonebs, po steroids and azithromycin - Insulin-dependent diabetes. Uncontrolled blood sugar. Needed insulin drip yesterday. Monitor BG. Increase levemir to 15. - Desaturated with ambulation. Will hold discharge until improvement. - c/w BP meds except home hctz. - Subcutaneous heparin for dvt ppx. - Time Spent with Patient Total time spent is greater than 50% in coordination of care (as documented) at patient's floor/unit and/or counseling patient: Internal Medicine: Result - Labs CBC & Chem 7: 02/17/19 06:29 02/18/19 07:07 Labs: BMP 02/18/19 07:07 Sodium 141 Potassium 3.7 Chloride 95 L Carbon Dioxide 37 H BUN 46 H Creatinine 1.16 Glucose 164 H Calcium 9.7 Consult Discharge Plan - Plan Referrals: Gregg Cook DO [Primary Care Provider] -
[2019-02-18] MEDS: Azithromycin 500 MG in D5% in Water 250 ML IVPB SCH (23:25)
[2019-02-19] MEDS: Ipratropium/Albuterol Neb 3 ML IH SCH ×3 (04:03→15:53)
[2019-02-19] MEDS: *HR* Heparin 5,000 UNIT/ML VIAL SQ SCH (05:46)
[2019-02-19] MEDS: Insulin LISPRO 300 UNITS/3 ML VIAL SQ SCH ×2 (09:31→12:49)
[2019-02-19] MEDS: predniSONE 20 MG TABLET PO SCH (09:31)
[2019-02-19] MEDS: amLODIPine 5 MG TABLET PO SCH (09:31)
[2019-02-19] MEDS: Insulin DETEMIR 100 UNIT/ML X5UNITS SQ SCH (09:37)
[2019-02-19 09:53] LABS: Calcium 9.6 mg/dL (8.6-10.3); Potassium 3.9 mEq/L (3.5-5.1)
--- NOTE | 2019-02-19 14:12 | Discharge Summary ---
- NOTES TO OUTPATIENT PROVIDER Notes to Outpatient Provider: Will need follow up with pulmonology as outpatient in 2-3 weeks. Patient will need close follow-up for her diabetes as patient on steroid taper and patient had significantly high blood glucose level while in hospital. We will need follow-up in a week. Patient COPD may have progressed needing more oxygen. Date of Encounter: 02/19/19 Time of Encounter: 12:10 - Discharge Diagnosis (1) Acute on chronic respiratory failure with hypoxia and hypercapnia Priority: Primary Status: Acute (2) COPD exacerbation Priority: Primary Status: Acute (3) DVT (deep venous thrombosis) Priority: Secondary Status: Suspected Qualifiers: DVT location: lower extremity Affected thrombotic vein of extremity: unspecified vein of extremity Chronicity: unspecified Laterality: bilateral Qualified Code(s): I82.403 - Acute embolism and thrombosis of unspecified deep veins of lower extremity, bilateral (4) Hyperglycemia Priority: Secondary Status: Acute (5) HTN (hypertension) Priority: Secondary Status: Chronic Qualifiers: Hypertension type: essential hypertension Qualified Code(s): I10 - Essential (primary) hypertension (6) Type 2 diabetes mellitus Priority: Secondary Status: Chronic Qualifiers: Diabetes mellitus prison insulin use: with inflated pad buffer use Diabetes mellitus complication status: with hyperglycemia Qualified Code(s): E11.65 - Type 2 diabetes mellitus with hyperglycemia; 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 Farr is a 68 year old female past medical history of adenocarcinoma of lung, diabetes, hypertension, COPD on home oxygen came in with complain of hypoxia and shortness of breath. Patient was found to have hypercapnia and hypoxia and was admitted for COPD exacerbation. CTA was negative for PE or dissection. Patient's right lower lobe consolidation was resolving on CT. Echocardiogram was obtained given some suspicion of CHF however EF showed 60% with mild diastolic dysfunction moderate to severe pulmonary hypertension with normal wall motion. Patient was started on azithromycin and prednisone for COPD. Patient gradually improved over a course of 4 days. Patient did have significant hyperglycemia which needed insulin drip for day which got corrected after increasing her long-acting insulin. DVT study was obtained which was nega tive. She was qualified for oxygen as she was needing more oxygen with ambulation. Patient likely has some progression of her COPD. She is otherwise stable to be discharged home to follow up outpatient with PCP and pulmonology. Discharged with prednisone taper and one more day of empiric azithromycin. She was discussed to increase glargine dose 5 units if her blood sugar are elevated before she is able to follow up with PCP. Discharge discussed with: patient, family, nurse, social work, case management - Time Spent with Patient Total time spent providing and/or coordinating discharge services: Time spent: Greater than 30 minutes (40) - Discharge Medications Prescriptions: New predniSONE [PredniSONE] See Taper PO DAILY 12 Days #30 tablet Azithromycin [Zithromax [place]] 500 mg PO DAILY 1 Days #1 tablet Continued hydroCHLOROthiazide [Hydrochlorothiazide] 25 mg PO DAILY Glimepiride [Amaryl] 2 mg PO BID Atenolol [Tenormin] 50 mg PO BID Budesonide/Formoterol 160/4.5 [Symbicort 160/4.5] 2 puff IH BIDR Albuterol Sulfate [Proair Respiclick] 2 puff IH Q4H PRN PRN Reason: Shortness Of Breath Theophylline Anhydrous [Mick-24] 100 mg PO DAILY metFORMIN [Glucophage] 500 mg PO BID Tiotropium [place] [Spiriva Respimat] 2 puff IH DAILY Albuterol Neb [Proventil Neb] 2.5 mg IH TID PRN PRN Reason: Shortness Of Breath Olmesartan Medoxomil [Benicar] 20 mg PO DAILY Insulin Glargine [Lantus] 30 unit SQ HS amLODIPine [Norvasc] 5 mg PO DAILY Home Medications: Atenolol [Tenormin] 50 mg PO BID 10/23/15 [History] Glimepiride [Amaryl] 2 mg PO BID 10/23/15 [History] hydroCHLOROthiazide [Hydrochlorothiazide] 25 mg PO DAILY 10/23/15 [History] Albuterol Sulfate [Proair Respiclick] 2 puff IH Q4H PRN 04/22/16 [History] Budesonide/Formoterol 160/4.5 [Symbicort 160/4.5] 2 puff IH BIDR 04/22/16 [History] Theophylline Anhydrous [Mick-24] 100 mg PO DAILY 10/24/16 [History] metFORMIN [Glucophage] 500 mg PO BID 10/24/16 [History] Albuterol Neb [Proventil Neb] 2.5 mg IH TID PRN 03/19/18 [History] Tiotropium [place] [Spiriva Respimat] 2 puff IH DAILY 03/19/18 [History] Insulin Glargine [Lantus] 30 unit SQ HS 11/06/18 [History] Olmesartan Medoxomil [Benicar] 20 mg PO DAILY 11/06/18 [History] amLODIPine [Norvasc] 5 mg PO DAILY 02/16/19 [History] Azithromycin [Zithromax Tri-[place]] 500 mg PO DAILY 1 Days #1 tablet 02/19/19 [Rx] predniSONE [PredniSONE] See Taper PO DAILY 12 Days #30 tablet 02/19/19 [Rx] Allergies/Adverse Reactions: Allergy/AdvReac Type Severity Reaction Status Date / Time roflumilast [From Daliresp] AdvReac Cramping Verified 02/16/18 12:54 of the Muscles Date of admission: 02/17/19 04:23 Primary care physician: Gregg Cook Consults: 02/16/19 22:48 Consult to Nurse Navigator [CONS] Routine Comment: Discharging clinician: Juan Winters Coy - Constitutional Vitals: Temp Pulse Resp BP Pulse Ox 99.0 F 95 16 130/81 97 02/19/19 11:33 02/19/19 11:33 02/19/19 11:33 02/19/19 11:33 02/19/19 14:04 Exam: General: In no acute distress. Respiratory exam: no accessory muscle use. crackles at b/l base. Decreased b/l air entry Cardiovascular exam: RRR, +S1, +S2. no murmur, gallop, rubs. GI/Abdominal exam: Non-tender, Non-distended, no peritoneal signs. Extremities exam: 1+ pedal edema b/l, pulses palpable in b/l lower extremities. no calf tenderness Neurological exam: CN II-XII intact, AO X3, no focal deficits. Skin exam: No skin rash - Patient Status Disposition: Home, Self-Care Condition: Fair - Discharge Instructions Follow Up With: Gregg Cook DO [Primary Care Provider] - - Diet and Activity Activity: increase activity as tolerated
[2019-02-19 15:14] VITALS: BP 137/75
== END 2019-02-19 17:06 | disposition home or self-care (01) | DRG 190 ==
LOC: EMEROOARM 14:51 → 2NENU 14:51 → SUATTDRO 02-17 04:23
PROVIDERS: ADMIT Student in an Organized Health Care Education/Training Program; ATTEND Internal Medicine

== ENCOUNTER 2021-05-25 16:39 | Observation (INO) ==
[2021-05-25] MEDS ORDERED: 0.9 % Sodium Chloride 1,000 ML IVC ONE (17:14)
[2021-05-25 17:50] LABS: Basophils % 0.3 %; Eosinophils % 0.3 %; Hematocrit 34.2 % (35.3-44.9); Immature Granulocytes % 0.5 % (0-4); Lymphocytes # 0.9 K/mcL (0.6-4.6); Lymphocytes % 8.9 %; Mean Corpuscular HGB Conc 29.2 g/dL (31.6-35.5); Mean Corpuscular Hemoglobin 28.4 pg (28.0-33.3); Mean Corpuscular Volume 97.2 fL (83.0-100.0); Mean Platelet Volume 10.4 fL (9.4-12.4); Monocytes # 0.5 K/mcL (0.0-1.3); Monocytes % 4.9 %; Neutrophils # 8.8 K/mcL (1.6-8.9); Platelet Count 157 K/mcL (140-400); Red Blood Count 3.52 M/mcL (3.82-4.97); Red Cell Distribution Width 13.6 % (11.5-14.5); Segmented Neutrophils % 85.1 %; White Blood Count 10.3 K/mcL (4.3-11.1)
[2021-05-25 18:21] LABS: Alanine Aminotransferase 12 Units/L (7-52); Albumin 3.8 g/dL (3.5-5.7); Albumin/Globulin Ratio 1.2 (1.1-2.2); Alkaline Phosphatase 74 Units/L (34-104); Aspartate Amino Transferase 13 Units/L (13-39); BUN/Creatinine Ratio 33 (6-26); Bilirubin,Total 0.2 mg/dL (0.3-1.0); Blood Urea Nitrogen 34 mg/dL (8-23); Calcium 9.8 mg/dL (8.6-10.3); Carbon Dioxide > 45 mEq/L (23-29); Chloride 93 mEq/L (98-107); Globulin 3.3 g/dL (2.4-3.5); Glucose 190 mg/dL (70-105); Magnesium 1.7 mg/dL (1.6-2.6); Osmolality,Calculated 309 (280-300); Potassium 3.9 mEq/L (3.5-5.1); Sodium 143 mEq/L (136-145); Total Protein 7.1 g/dL (6.4-8.9); Troponin I < 0.03 ng/mL (< 0.04); eGFR For African Americans > 60 (> 60); eGFR For Non-African Americans 53 (> 60)
[2021-05-25 18:40] LABS: ABG Base Excess 17 mEq/L (-2 to 3); ABG HCO3 48 mEq/L (21-27); ABG Oxygen Saturation 99 % (95-98); ABG PCO2 106 mmHg (35-45); ABG PH 7.26 pH Units (7.32-7.45); ABG PO2 171 mmHg (85-104); ABG TCO2 > 50 mEq/L (20-26)
[2021-05-25] MEDS ORDERED: Ipratropium/Albuterol Neb 3 ML IH ONE (18:41)
[2021-05-25] MEDS ORDERED: methylPREDNISolone 125 MG/2 ML VIAL IVP ONE (18:41)
[2021-05-25] MEDS ORDERED: Melatonin 3 MG TABLET PO PRN (22:01)
[2021-05-25] MEDS ORDERED: Ondansetron 4 MG/2 ML VIAL IVP PRN (22:01)
[2021-05-25] MEDS ORDERED: Naloxone 0.4 MG/ML INJ IVP PRN (22:01)
[2021-05-25] MEDS ORDERED: Acetaminophen 325 MG TABLET PO PRN (22:01)
[2021-05-26] MEDS ORDERED: *HR* LORazepam 2 MG/ML VIAL IVP ONE (01:07)
[2021-05-26] MEDS ORDERED: Dextrose Gel 15 GM/37.5 ML TUBE PO PRN ×2 (01:43)
[2021-05-26] MEDS ORDERED: D5% in Water 1,000 ML IVC PRN (01:43)
[2021-05-26] MEDS ORDERED: *HR* Dextrose 50 % in Water (Vial) 50 ML VIAL IVP PRN (01:43)
[2021-05-26] MEDS ORDERED: Albuterol 2.5 MG/3 ML NEBULIZER IH PRN (02:17)
[2021-05-26] MEDS: Azithromycin 500 MG in 0.9 % Sodium Chloride 250 ML IVPB SCH (02:57)
[2021-05-26 03:24] LABS: Basophils % 0.1 %; Hematocrit 31.8 % (35.3-44.9); Hemoglobin 9.4 g/dL (11.5-15.4); Immature Granulocytes % 0.4 % (0-4); Lymphocytes # 0.4 K/mcL (0.6-4.6); Lymphocytes % 4.9 %; Mean Corpuscular HGB Conc 29.6 g/dL (31.6-35.5); Mean Corpuscular Hemoglobin 28.3 pg (28.0-33.3); Mean Corpuscular Volume 95.8 fL (83.0-100.0); Mean Platelet Volume 10.7 fL (9.4-12.4); Monocytes % 0.4 %; Neutrophils # 7.1 K/mcL (1.6-8.9); Platelet Count 141 K/mcL (140-400); Red Blood Count 3.32 M/mcL (3.82-4.97); Red Cell Distribution Width 13.5 % (11.5-14.5); Segmented Neutrophils % 94.2 %; White Blood Count 7.6 K/mcL (4.3-11.1)
[2021-05-26] MEDS: Ipratropium/Albuterol Neb 3 ML IH SCH ×4 (03:33→22:51)
[2021-05-26 03:42] LABS: Alanine Aminotransferase 11 Units/L (7-52); Albumin 3.6 g/dL (3.5-5.7); Albumin/Globulin Ratio 1.2 (1.1-2.2); Alkaline Phosphatase 69 Units/L (34-104); Aspartate Amino Transferase 13 Units/L (13-39); BUN/Creatinine Ratio 36 (6-26); Bilirubin,Total 0.3 mg/dL (0.3-1.0); Blood Urea Nitrogen 33 mg/dL (8-23); Calcium 9.1 mg/dL (8.6-10.3); Carbon Dioxide 41 mEq/L (23-29); Chloride 95 mEq/L (98-107); Glucose 261 mg/dL (70-105); Osmolality,Calculated 306 (280-300); Phosphorous 2.5 mg/dL (2.7-4.5); Potassium 4.2 mEq/L (3.5-5.1); Sodium 140 mEq/L (136-145); Total Protein 6.6 g/dL (6.4-8.9); eGFR For African Americans > 60 (> 60); eGFR For Non-African Americans > 60 (> 60)
[2021-05-26 04:49] LABS: ABG Base Excess 14 mEq/L (-2 to 3); ABG HCO3 42 mEq/L (21-27); ABG Oxygen Saturation 86 % (95-98); ABG PCO2 74 mmHg (35-45); ABG PH 7.37 pH Units (7.32-7.45); ABG PO2 56 mmHg (85-104); ABG TCO2 45 mEq/L (20-26)
[2021-05-26] MEDS: Insulin LISPRO 300 UNITS/3 ML VIAL SUBQ SCH ×2 (05:51→13:25)
[2021-05-26] MEDS: amLODIPine 5 MG TABLET PO SCH (09:29)
[2021-05-26] MEDS: hydroCHLOROthiazide 25 MG TABLET PO SCH (09:30)
[2021-05-26] MEDS: Gabapentin 300 MG CAPSULE PO SCH (09:30)
[2021-05-26] MEDS: predniSONE 20 MG TABLET PO SCH (09:30)
[2021-05-26] MEDS: Budesonide/Formoterol 160/4.5 1 PUFF INH IH SCH ×2 (11:10→22:51)
[2021-05-26] MEDS: Tiotropium 10 INH DOSE IH SCH (11:11)
[2021-05-26] MEDS ORDERED: Insulin DETEMIR 100 UNIT/ML X5UNITS SUBQ SCH (21:00)
[2021-05-27] MEDS: Insulin LISPRO 300 UNITS/3 ML VIAL SUBQ SCH ×4 (00:35→13:18)
[2021-05-27] MEDS: Azithromycin 500 MG in 0.9 % Sodium Chloride 250 ML IVPB SCH (03:14)
[2021-05-27] MEDS: Ipratropium/Albuterol Neb 3 ML IH SCH ×2 (04:30→11:04)
[2021-05-27] MEDS: amLODIPine 5 MG TABLET PO SCH (09:29)
[2021-05-27] MEDS: predniSONE 20 MG TABLET PO SCH (09:29)
[2021-05-27] MEDS: hydroCHLOROthiazide 25 MG TABLET PO SCH (09:29)
[2021-05-27] MEDS: Gabapentin 300 MG CAPSULE PO SCH (09:30)
[2021-05-27] MEDS: Tiotropium 10 INH DOSE IH SCH (11:02)
[2021-05-27] MEDS: Budesonide/Formoterol 160/4.5 1 PUFF INH IH SCH (11:04)
[2021-05-27 11:14] VITALS: BP 138/82; PULSE 88; TEMP 97.9; O2SAT 98
== END 2021-05-27 14:18 | disposition home or self-care (01) ==
LOC: EMEROOARM 16:39 → 2NENU 16:39
PROVIDERS: ADMIT Internal Medicine; ATTEND Internal Medicine

== ENCOUNTER 2022-03-28 22:44 | Inpatient (IN) ==
[2022-03-29] MEDS ORDERED: 0.9 % Sodium Chloride 1,000 ML IVC ONE (00:01)
[2022-03-29 00:20] LABS: Alanine Aminotransferase 14 Units/L (7-52); Albumin 3.5 g/dL (3.5-5.7); Albumin/Globulin Ratio 1.1 (1.1-2.2); Alkaline Phosphatase 63 Units/L (34-104); Aspartate Amino Transferase 12 Units/L (13-39); BUN/Creatinine Ratio 24 (6-26); Bilirubin,Direct 0.1 mg/dL (0.0-0.2); Bilirubin,Indirect 0.2 mg/dL (0.0-1.0); Bilirubin,Total 0.3 mg/dL (0.3-1.0); Blood Urea Nitrogen 29 mg/dL (8-23); Calcium 8.9 mg/dL (8.6-10.3); Carbon Dioxide 34 mEq/L (23-29); Chloride 94 mEq/L (98-107); Globulin 3.2 g/dL (2.4-3.5); Glucose 499 mg/dL (70-105); Lipase 47 Units/L (11-82); Osmolality,Calculated 308 (280-300); Potassium 4.1 mEq/L (3.5-5.1); Sodium 135 mEq/L (136-145); Total Protein 6.7 g/dL (6.4-8.9); eGFR For African Americans 53 (> 60); eGFR For Non-African Americans 44 (> 60)
[2022-03-29 00:21] LABS: Troponin I < 0.03 ng/mL (< 0.04)
[2022-03-29 00:25] LABS: Influenza A PCR Negative (Negative); Influenza B PCR Negative (Negative); Resp. Syncytial Virus PCR Negative (Negative)
[2022-03-29 00:31] LABS: Immature Granulocytes % 0.9 % (0-4); Red Cell Distribution Width 14.2 % (11.5-14.5); SARS-CoV-2 by PCR (In House) Positive (Negative)
[2022-03-29 00:33] LABS: Basophils % 0.7 %; Eosinophils # 0.1 K/mcL (0.0-0.6); Eosinophils % 1.4 %; Hematocrit 38.2 % (35.3-44.9); Hemoglobin 10.9 g/dL (11.5-15.4); Lymphocytes # 0.8 K/mcL (0.6-4.6); Lymphocytes % 17.2 %; Mean Corpuscular HGB Conc 28.5 g/dL (31.6-35.5); Mean Corpuscular Hemoglobin 26.8 pg (28.0-33.3); Mean Corpuscular Volume 93.9 fL (83.0-100.0); Mean Platelet Volume 10.5 fL (9.4-12.4); Monocytes # 0.5 K/mcL (0.0-1.3); Platelet Count 180 K/mcL (140-400); Red Blood Count 4.07 M/mcL (3.82-4.97); Segmented Neutrophils % 68.8 %; White Blood Count 4.4 K/mcL (4.3-11.1)
[2022-03-29 00:57] LABS: Platelet Estimate Normal (Normal)
[2022-03-29] MEDS ORDERED: Ipratropium/Albuterol Neb 3 ML IH ONE (01:04)
[2022-03-29] MEDS ORDERED: Albuterol 2.5 MG/3 ML NEBULIZER IH ONE (01:04)
[2022-03-29 01:41] LABS: VBG HCO3 35 mEq/L (21-27); VBG PCO2 82 mmHg (41-51); VBG PH 7.23 pH Units (7.32-7.42); VBG PO2 38 mmHg (25-50)
[2022-03-29] MEDS ORDERED: Ondansetron 4 MG/2 ML VIAL IVP PRN (02:46)
[2022-03-29] MEDS ORDERED: Naloxone 0.4 MG/ML INJ IVP PRN (02:46)
[2022-03-29] MEDS ORDERED: Melatonin 3 MG TABLET PO PRN (02:46)
[2022-03-29] MEDS ORDERED: *HR* OxyCODONE Immed Rel 5 MG TABLET PO PRN (02:46)
[2022-03-29] MEDS ORDERED: Acetaminophen 325 MG TABLET PO PRN (02:46)
[2022-03-29] MEDS ORDERED: *HR* HYDROcodone/Acet 5/325 mg TABLET PO PRN (02:46)
[2022-03-29] MEDS ORDERED: D5% in Water 1,000 ML IVC PRN (02:49)
[2022-03-29] MEDS ORDERED: Dextrose Gel 15 GM/37.5 ML TUBE PO PRN ×2 (02:49)
[2022-03-29] MEDS ORDERED: *HR* Dextrose 50 % in Water (Syg) 50 ML SYRINGE IVP PRN (02:49)
[2022-03-29 03:13] LABS: Bilirubin,Urine Negative (Negative); Blood,Urine Negative (Negative); Clarity,Urine Clear (Clear); Color,Urine Light-Yellow (Yellow); Glucose,Urine (UA) >=1000 mg/dL (Normal); Ketones,Urine Negative (Negative); Leukocyte Esterase,Urine Negative (Negative); Mucus,Urine Few per lpf (None-Few); Nitrite,Urine Negative (Negative); Protein,Urine Trace mg/dL (Neg-Trace); RBC,Urine 0-3 per hpf (0-3); Specific Gravity,Urine > 1.030 (1.010-1.025); Squamous Epithelial Cell,Urine Few per hpf (None-Few); Urobilinogen,Urine Normal (Normal)
[2022-03-29] MEDS ORDERED: Remdesivir 200 MG in 0.9 % Sodium Chloride 100 ML IVPB ONE (03:43)
[2022-03-29 03:45] LABS: VBG HCO3 33 mEq/L (21-27); VBG PCO2 73 mmHg (41-51); VBG PH 7.27 pH Units (7.32-7.42); VBG PO2 130 mmHg (25-50)
[2022-03-29] MEDS ORDERED: Dexamethasone Sodium Phos/PF 10 MG/ML VIAL IVP ONE (04:00)
[2022-03-29] MEDS: Insulin DETEMIR 100 UNIT/ML X5UNITS SUBQ SCH ×2 (05:25→19:55)
[2022-03-29] MEDS ORDERED: Insulin LISPRO 300 UNITS/3 ML VIAL SUBQ SCH (06:00)
[2022-03-29] MEDS ORDERED: Dexamethasone Sodium Phos/PF 10 MG/ML VIAL IVP SCH (09:00)
[2022-03-29] MEDS: *HR* Enoxaparin 40 MG/0.4 ML SYRINGE SQ SCH (10:35)
[2022-03-29 11:48] LABS: Immature Granulocytes % 0.6 % (0-4); Red Cell Distribution Width 14.1 % (11.5-14.5)
[2022-03-29 11:50] LABS: Hematocrit 36.6 % (35.3-44.9); Hemoglobin 10.5 g/dL (11.5-15.4); Lymphocytes # 0.3 K/mcL (0.6-4.6); Lymphocytes % 9.2 %; Mean Corpuscular HGB Conc 28.7 g/dL (31.6-35.5); Mean Corpuscular Hemoglobin 26.5 pg (28.0-33.3); Mean Corpuscular Volume 92.4 fL (83.0-100.0); Mean Platelet Volume 10.3 fL (9.4-12.4); Monocytes # 0.1 K/mcL (0.0-1.3); Monocytes % 1.6 %; Neutrophils # 2.8 K/mcL (1.6-8.9); Platelet Count 163 K/mcL (140-400); Red Blood Count 3.96 M/mcL (3.82-4.97); Segmented Neutrophils % 88.6 %; White Blood Count 3.1 K/mcL (4.3-11.1)
[2022-03-29 11:54] LABS: ABG Base Excess 5 mEq/L (-2 to 3); ABG HCO3 33 mEq/L (21-27); ABG Oxygen Saturation 98 % (95-98); ABG PCO2 67 mmHg (35-45); ABG PO2 112 mmHg (85-104); ABG TCO2 35 mEq/L (20-26)
[2022-03-29 11:56] LABS: Fibrinogen 480 mg/dL (169-393); Prothrombin Time 10.7 Seconds (9.4-12.1)
[2022-03-29 11:59] LABS: D-Dimer 722 ng/mLFEU (0-500)
[2022-03-29] MEDS: Insulin LISPRO 300 UNITS/3 ML VIAL SUBQ SCH ×2 (12:23→18:49)
[2022-03-29 12:25] LABS: Alanine Aminotransferase 10 Units/L (7-52); Albumin 3.5 g/dL (3.5-5.7); Albumin/Globulin Ratio 1.2 (1.1-2.2); Alkaline Phosphatase 65 Units/L (34-104); Aspartate Amino Transferase 13 Units/L (13-39); BUN/Creatinine Ratio 29 (6-26); Bilirubin,Total 0.2 mg/dL (0.3-1.0); Blood Urea Nitrogen 28 mg/dL (8-23); Calcium 8.7 mg/dL (8.6-10.3); Carbon Dioxide 30 mEq/L (23-29); Chloride 101 mEq/L (98-107); Globulin 2.9 g/dL (2.4-3.5); Glucose 324 mg/dL (70-105); Magnesium 1.7 mg/dL (1.6-2.6); Osmolality,Calculated 304 (280-300); Potassium 4.7 mEq/L (3.5-5.1); Sodium 138 mEq/L (136-145); Total Protein 6.4 g/dL (6.4-8.9); eGFR For African Americans > 60 (> 60); eGFR For Non-African Americans 56 (> 60)
[2022-03-29 12:26] LABS: Albumin 3.5 g/dL (3.5-5.7); Albumin/Globulin Ratio 1.2 (1.1-2.2); Bilirubin,Indirect 0.2 mg/dL (0.0-1.0); Bilirubin,Total 0.2 mg/dL (0.3-1.0); Globulin 2.9 g/dL (2.4-3.5); Total Protein 6.4 g/dL (6.4-8.9)
[2022-03-29 12:29] LABS: Ferritin 242 ng/mL (10-120); Lactate Dehydrogenase 149 Units/L (140-271)
[2022-03-29 12:32] LABS: Platelet Estimate Normal (Normal)
[2022-03-29 16:22] LABS: C-Reactive Protein 85 mg/L (Less than 10)
[2022-03-29] MEDS: HydrOXYzine SYP 10 MG/5 ML UDC PO SCH (19:54)
[2022-03-30 04:45] LABS: Hemoglobin 10.4 g/dL (11.5-15.4); Red Cell Distribution Width 14.1 % (11.5-14.5)
[2022-03-30 04:46] LABS: Hematocrit 36.4 % (35.3-44.9); Immature Granulocytes % 0.8 % (0-4); Lymphocytes # 0.6 K/mcL (0.6-4.6); Lymphocytes % 15.6 %; Mean Corpuscular HGB Conc 28.6 g/dL (31.6-35.5); Mean Corpuscular Hemoglobin 26.5 pg (28.0-33.3); Mean Corpuscular Volume 92.9 fL (83.0-100.0); Mean Platelet Volume 10.1 fL (9.4-12.4); Monocytes # 0.4 K/mcL (0.0-1.3); Monocytes % 10.3 %; Neutrophils # 2.9 K/mcL (1.6-8.9); Platelet Count 170 K/mcL (140-400); Red Blood Count 3.92 M/mcL (3.82-4.97); Segmented Neutrophils % 73.3 %; White Blood Count 3.9 K/mcL (4.3-11.1)
[2022-03-30 04:50] LABS: Platelet Estimate Normal (Normal)
[2022-03-30 04:58] LABS: Alanine Aminotransferase 15 Units/L (7-52); Albumin 3.4 g/dL (3.5-5.7); Albumin 3.6 g/dL (3.5-5.7); Albumin/Globulin Ratio 1.1 (1.1-2.2); Albumin/Globulin Ratio 1.2 (1.1-2.2); Alkaline Phosphatase 60 Units/L (34-104); Aspartate Amino Transferase 19 Units/L (13-39); BUN/Creatinine Ratio 31 (6-26); Bilirubin,Indirect 0.3 mg/dL (0.0-1.0); Bilirubin,Total 0.3 mg/dL (0.3-1.0); Blood Urea Nitrogen 34 mg/dL (8-23); C-Reactive Protein 60 mg/L (Less than 10); Calcium 9.1 mg/dL (8.6-10.3); Carbon Dioxide 35 mEq/L (23-29); Chloride 98 mEq/L (98-107); Globulin 2.9 g/dL (2.4-3.5); Globulin 3.1 g/dL (2.4-3.5); Glucose 225 mg/dL (70-105); Lactate Dehydrogenase 263 Units/L (140-271); Osmolality,Calculated 303 (280-300); Potassium 4.8 mEq/L (3.5-5.1); Sodium 139 mEq/L (136-145); Total Protein 6.5 g/dL (6.4-8.9); eGFR For African Americans > 60 (> 60); eGFR For Non-African Americans 50 (> 60)
[2022-03-30] MEDS: *HR* Enoxaparin 40 MG/0.4 ML SYRINGE SQ SCH ×2 (06:40→17:59)
[2022-03-30] MEDS: Remdesivir 100 MG in 0.9 % Sodium Chloride 100 ML IVPB SCH (09:52)
[2022-03-30] MEDS: Dexamethasone Sodium Phos/PF 10 MG/ML VIAL IVP SCH (09:53)
[2022-03-30] MEDS: Insulin LISPRO 300 UNITS/3 ML VIAL SUBQ SCH ×3 (10:02→17:59)
[2022-03-30] MEDS: HydrOXYzine SYP 10 MG/5 ML UDC PO SCH (13:32)
[2022-03-30] MEDS: Insulin DETEMIR 100 UNIT/ML X5UNITS SUBQ SCH (22:28)
[2022-03-31] MEDS: *HR* Enoxaparin 40 MG/0.4 ML SYRINGE SQ SCH ×2 (05:08→16:49)
[2022-03-31 07:08] LABS: Albumin 3.5 g/dL (3.5-5.7); Albumin/Globulin Ratio 1.1 (1.1-2.2); Bilirubin,Direct 0.1 mg/dL (0.0-0.2); Bilirubin,Indirect 0.2 mg/dL (0.0-1.0); Bilirubin,Total 0.3 mg/dL (0.3-1.0); Globulin 3.1 g/dL (2.4-3.5); Total Protein 6.6 g/dL (6.4-8.9)
[2022-03-31 08:23] LABS: Alanine Aminotransferase 11 Units/L (7-52); Albumin 3.5 g/dL (3.5-5.7); Albumin/Globulin Ratio 1.1 (1.1-2.2); Alkaline Phosphatase 64 Units/L (34-104); Aspartate Amino Transferase 13 Units/L (13-39); BUN/Creatinine Ratio 36 (6-26); Bilirubin,Total 0.3 mg/dL (0.3-1.0); Blood Urea Nitrogen 35 mg/dL (8-23); C-Reactive Protein 35 mg/L (Less than 10); Carbon Dioxide 36 mEq/L (23-29); Chloride 98 mEq/L (98-107); Globulin 3.1 g/dL (2.4-3.5); Glucose 186 mg/dL (70-105); Lactate Dehydrogenase 160 Units/L (140-271); Osmolality,Calculated 307 (280-300); Potassium 4.1 mEq/L (3.5-5.1); Sodium 142 mEq/L (136-145); Total Protein 6.6 g/dL (6.4-8.9); eGFR For African Americans > 60 (> 60); eGFR For Non-African Americans 56 (> 60)
[2022-03-31] MEDS: Dexamethasone Sodium Phos/PF 10 MG/ML VIAL IVP SCH (10:00)
[2022-03-31] MEDS: Remdesivir 100 MG in 0.9 % Sodium Chloride 100 ML IVPB SCH (10:01)
[2022-03-31] MEDS: Insulin LISPRO 300 UNITS/3 ML VIAL SUBQ SCH ×3 (10:02→16:49)
[2022-03-31] MEDS: Gabapentin 300 MG CAPSULE PO SCH (14:26)
[2022-03-31] MEDS: Insulin DETEMIR 100 UNIT/ML X5UNITS SUBQ SCH (20:33)
[2022-04-01 02:07] LABS: Albumin 3.5 g/dL (3.5-5.7); Albumin/Globulin Ratio 1.2 (1.1-2.2); Bilirubin,Indirect 0.3 mg/dL (0.0-1.0); Bilirubin,Total 0.3 mg/dL (0.3-1.0); Globulin 2.9 g/dL (2.4-3.5); Total Protein 6.4 g/dL (6.4-8.9)
[2022-04-01 02:37] LABS: Potassium 4.8 mEq/L (3.5-5.1)
[2022-04-01] MEDS: *HR* Enoxaparin 40 MG/0.4 ML SYRINGE SQ SCH (05:47)
[2022-04-01] MEDS: Dexamethasone Sodium Phos/PF 10 MG/ML VIAL IVP SCH (08:03)
[2022-04-01] MEDS: Gabapentin 300 MG CAPSULE PO SCH (08:04)
[2022-04-01] MEDS: Remdesivir 100 MG in 0.9 % Sodium Chloride 100 ML IVPB SCH (08:07)
[2022-04-01] MEDS: Insulin LISPRO 300 UNITS/3 ML VIAL SUBQ SCH ×3 (08:09→16:45)
[2022-04-01] MEDS: Metoprolol XL (24 HR) Succ 50 MG TAB.ER.24H PO SCH (16:44)
[2022-04-01] MEDS: Insulin DETEMIR 100 UNIT/ML X5UNITS SUBQ SCH (21:47)
[2022-04-02] MEDS ORDERED: *HR* Enoxaparin 40 MG/0.4 ML SYRINGE SQ SCH (06:00)
[2022-04-02] MEDS: Dexamethasone Sodium Phos/PF 10 MG/ML VIAL IVP SCH (07:34)
[2022-04-02] MEDS: Metoprolol XL (24 HR) Succ 50 MG TAB.ER.24H PO SCH (07:34)
[2022-04-02] MEDS: Gabapentin 300 MG CAPSULE PO SCH (07:34)
[2022-04-02 07:38] LABS: Albumin 3.4 g/dL (3.5-5.7); Albumin/Globulin Ratio 1.3 (1.1-2.2); Bilirubin,Indirect 0.3 mg/dL (0.0-1.0); Bilirubin,Total 0.3 mg/dL (0.3-1.0); Globulin 2.7 g/dL (2.4-3.5); Total Protein 6.1 g/dL (6.4-8.9)
[2022-04-02] MEDS: Remdesivir 100 MG in 0.9 % Sodium Chloride 100 ML IVPB SCH (07:56)
[2022-04-02] MEDS: Insulin LISPRO 300 UNITS/3 ML VIAL SUBQ SCH ×2 (08:01→13:47)
[2022-04-02 12:21] VITALS: BP 138/66; PULSE 66; TEMP 98.2; O2SAT 92
== END 2022-04-02 16:10 | disposition home or self-care (01) | DRG 871 ==
LOC: EMEROOARM 22:44 → 3NENU 22:44 → SUATTDRO 03-29 06:28 → 3NENU 03-29 09:13 → SUATTDRO 03-29 16:30
PROVIDERS: ADMIT Internal Medicine; ATTEND Hospitalist